=== PATIENT | male | born 1935 | race Caucasian/White ===

== ENCOUNTER 2016-09-18 18:01 | Emergency (ER) | payer MEDICARE ==
--- OUTSIDE RECORDS SUMMARY | 2016-09-18 18:36 | XMS REPORT | Continuity of Care Document ---
:1935 Author Organization [facility] ([facility]) Address [place] [address] Phone [phone] Care Team Providers Name Role Phone Bri Anderson Primary Care Provider [phone] Source Comments This disclosure is being made pursuant to the Care Everywhere program, applicable federal and state laws, and may not contain all informaitonavailable regarding this patient.[facility] ([facility]) Active Allergies and Adverse Reactions Allergen Noted Date Severity Reactions Comments Atorvastatin 08/21/2016 Fatigue Sulfa (Sulfonamide Antibiotics) 03/26/2016 Unknown Possible allergy Current Medications Prescription Sig. Disp. Refills Start Date End Date Status NITROSTAT 0.4 mg SL 10/30/2014 Active tablet multivitamin tablet Take 1 tablet by Active mouth daily. PROAIR HFA 90 03/06/2016 Active mcg/Actuation inhaler aspirin 325 mg tablet Take 325 mg by Active mouth daily. clopidogrel (PLAVIX) Take 1 tablet (75 90 tablet 3 05/07/2016 Active 75 mg tablet mg total) by mouth daily. losartan-hydrochlorot Take 1 tablet by 90 tablet 3 05/07/2016 Active hiazide 100-12.5 mg mouth daily. per tablet amLODIPine 5 mg Take 1 tablet (5 mg 90 tablet 2 06/18/2016 Active tablet total) by mouth daily. FOLIC Active ACID/MULTIVIT-MIN/LUT EIN (CENTRUM SILVER PO) acetaminophen 500 mg take 2 tablets Active tablet (1,000 mg) by oral route every 4 hours as needed not to exceed 8 tablets per 24hrs albuterol-ipratropium inhale 3 07/04/2015 Active 2.5-0.5 mg/3 mL milliliters by inhalation solution nebulization route 2 times per day as needed albuterol-ipratropium use bid prn per 09/16/2015 Active 2.5-0.5 mg/3 mL nebulizer inhalation solution LORazepam 1 mg tablet Take 1 tablet (1 mg 1 tablet 0 08/21/2016 Active total) by mouth once. 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 VASCULAR: Carotid Duplex (Vertebral: Bilateral Antegrade Flow, Right ICA/CCA ratio 1.9 Left ICA/CCA ratio 1.0) - 07/04/2013 Fatigue 12/15/2014 Overview: Essential (primary) hypertension 02/14/2014 Coronary artery disease Overview: Formatting of this note may be different from the original. CARDIOVASCULAR PROCEDURES 1. History of multiple stent deployment to the left anterior descending artery performed in 2003, utilizing a 3.5 x 15 mm Multi-Link stent as well as 3.0 x 16 mm Express stent, and 2.25 x 8 mm stent to the diagonal branch performed in [place]. 2. Repeat stent in 2003 in [place] with deployment of a 3.0 x 8 mm Express stent to the proximal circumflex. 3. Repeat cardiac catheterization in [place] in 01/28 with stent deployment x3 to the right coronary artery utilizing 3.5 x 28 mm Liberte stent, 3.0 x 12 mm Taxus stent, 2.5 x 16 mm Taxus stent to th e mid and distal right coronary arteries respectively. 4. Repeat cardiac catheterization in [place] in 11/01 with stent deployment x2 to the circumflex artery, utilizing a 3.0 x 16 mm and 3.5 x 32 mm ION stent. 5. Repeat cardiac catheterization in [place] in 07/05 with placement of a 4.0 x 12 mm ION stent to the right coronary artery. ECHO/MUGA: Echo (There is moderate concentric left ventricular hypertrophy. Left ventricular systolic function is normal. There is trace mitral regurgitation. There is aortic valve sclerosis without stenosis. Mild aortic regurgitation. ) - 12/23/2012 Echo (There is moderate concentric left ventricular hypertrophy. Left ventricular systolic function is normal. There is mild mitral regurgitation. There is aortic valve sclerosis without stenosis. trace aortic regurgitation. ) - 07/25/2015 STRESS TESTS: MPI (Normal myocardial perfusion examination. No evidence of stress induced reversible photopenia suggestive of cardiac ischemia. No evidence of prior scar. 2 Normal post stress LVEF of 54%. 3 Normal LV size and wall motion 4. Post stress LVEDV of 122 mL ) - 12/23/2012 Silvestre MPI (Normal EF, Normal perfusion) - 02/01/2014 Cardiac PET: Normal myocardial perfusion scan; LVEF of 54%.01/02/2015 VASCULAR: Carotid Duplex (Vertebral: Bilateral Antegrade Flow, Right ICA/CCA ratio 1.9 Left ICA/CCA ratio 1.0) - 07/04/2013 Atrial fibrillation Overview: Poor documentation. Hyperlipidemia Overview: refuses statin Most Recent Encounters Date Type Specialty Providers Description 08/25/2016 Office Visit Heart and Vascular Taylor Crockett MD Dx: Chest pain on exertion (Primary Dx) 08/21/2016 Office Visit Srg Oncology Maikol Uribe, Dx: IPMN (intraductal papillary mucinous neoplasm) (Primary Dx) 08/21/2016 Hospital Radiology Akil Troncoso MD Dx: Pancreatic Encounter cyst 08/21/2016 [facility] Pancreatic MD cyst (Primary Dx) 08/13/2016 [facility]Notes [facility]x: Pancreatic cyst (Primary Dx) 08/10/2016 Telephone [facility] Maikol Uribe, Chief Comp: MD Appointment Request 07/17/2016 Telephone Cardiac Rehabilitation Taylor Crockett MD Chief Comp: Follow-up Social History Tobacco Use Types Packs/Day Years Used Date Never Smoker Smokeless Tobacco: Never Used Alcohol Use Drinks/Week oz/Week Comments No Last Filed Vital Signs Vital Sign Reading Time Taken Blood Pressure 124/70 08/25/2016 10:33 AM CDT Pulse 76 08/25/2016 10:33 AM CDT Temperature 36.1 C (97 F) 08/21/2016 10:31 AM CDT Respiratory Rate - - Height 1.905 m (6' 3") 08/25/2016 10:33 AM CDT Weight 112.674 kg (248 lb 6.4 oz) 08/25/2016 10:33 AM CDT Body Mass Index 31.05 08/25/2016 10:33 AM CDT Oxygen Saturation 91% 08/21/2016 10:31 AM CDT Plan of Care Date Type Specialty Providers Description 11/19/2016 Appointment Radiology Chief Comp: Patient Reported Reason For Visit 11/19/2016 Appointment Srg Oncology Maikol Uribe MD Chief Comp: Patient [address] [place] [address] Visit [phone] (Fax) 03/23/2017 Appointment Heart and Vascular BonTaylor MD Chief Comp: Patient [address] [place] [address] Visit [phone] (Fax) Health Maintenance Due Date Last Done Comments Hepatitis B Vaccine (1 of 3 - Primary Series) 1935 Tdap Vaccine 1946 Lipid Disorder Screening 12/05/1955 Td Vaccine 12/05/1955 Colonoscopy 1987 Zoster Vaccine 1997 Pneumococcal Vaccine (1 of 2 - PCV13) 2002 Influenza Vaccine: Seasonal (Season Ended) 2016 Results from Last 3 Months MRI ABDOMEN WO CONTRAST (18010) (08/21/2016 9:56 AM) Impressions Impression: 1. Limited study performed without intravenous contrast. Patient became claustrophobic and was unable to complete the MRI. 2. Dominant septated cystic lesion in pancreatic body, incompletely evaluated. Differential diagnosis includes mucinous cystic neoplasm and sidebranch IPMN. If clinically indicated, consider endoscopic ultrasound with FNA for further evaluation. 3. Several small cystic lesions scattered throughout the pancreas, too small to characterize, but could represent small side branch IPMNs. 4. Slight diffuse prominence of the main pancreatic duct. 5. Multiple hepatic lesions, incompletely evaluated, but may represent cysts or hemangiomas. Narrative Procedure: MRI ABDOMEN WO CONTRAST (51036) Clinical Indication: Pancreatic cyst, concerning for IPMN. evaluate Technique: MRI of the abdomen with attention to the pancreas and MRCP were performed on a 1.5 Lauren scanner using a surface multicoil. Imaging consisted of 3 plane TrueFISP localizer, coronal HASTE T2 localizer, axial T1 FLASH in- and [id number], axial T2 fat-sat GRACE, axial T2* GRE, axial and coronal fat-sat T2 HASTE 2D MRCP, and axial T2 HASTE. The patient became claustrophobic and was unable to complete the exam. No intravenous contrast was administered. Comparison:PET/CT myocardial perfusion study dated 01/01/2015 Findings: Limited evaluation of solid organs and blood vessels without IV contrast. Lower chest: Normal Liver: Size is top normal. Multiple high T2, well-circumscribed lesions in the liver, probably cysts or hemangiomas. A few of the lesions may have thin internal septations. Bile ducts: Not dilated. Gallbladder: Normal. Pancreas: Fatty infiltration of pancreas. There is a lobulated, septated cystic lesion in the pancreatic body measuring 2 x 5 x 3.2 cm. Unable to determine if this lesion communicates with the pancreatic duct. There are at least 6 additional small cystic lesions scattered throughout the pancreas, largest in the body measures 1.4 cm. Main pancreatic duct is slightly prominent at 4 mm in maximum diameter. Spleen: Normal Adrenal glands: Normal Kidneys: Mild left renal atrophy. Bilateral renal cysts. Ureters: Normal Aorta: Normal Retroperitoneum: No lymphadenopathy. Peritoneum: No ascites. Mesentery: Normal Stomach and bowel: Not distended. Abdominal wall: Normal. Bones: Normal. Procedure Note French, Incoming Imaging Results - WedAug 21, 2016 1:50 PM CDT Procedure: MRI ABDOMEN WO CONTRAST (85231) Clinical Indication: Pancreatic cyst, concerning for IPMN. evaluate Technique: MRI of the abdomen with attention to the pancreas and MRCP were performed on a 1.5 Lauren scanner using a surface multicoil. Imaging consisted of 3 plane TrueFISP localizer, coronal HASTE T2 localizer, axial T1 FLASH in- and [id number], axial T2 fat-sat GRACE, axial T2* GRE, axial and coronal fat-sat T2 HASTE 2D MRCP, and axial T2 HASTE. The patient became claustrophobic and was unable to complete the exam. No intravenous contrast was administered. Comparison: PET/CT myocardial perfusion study dated 01/01/2015 Findings: Limited evaluation of solid organs and blood vessels without IV contrast. Lower chest: Normal Liver: Size is top normal. Multiple high T2, well-circumscribed lesions in the liver, probably cysts or hemangiomas. A few of the lesions may have thin internal septations. Bile ducts: Not dilated. Gallbladder: Normal. Pancreas: Fatty infiltration of pancreas. There is a lobulated, septated cystic lesion in the pancreatic body measuring 2 x 5 x 3.2 cm. Unable to determine if this lesion communicates with the pancreatic duct. There are at least 6 additional small cystic lesions scattered throughout the pancreas, largest in the body measures 1.4 cm. Main pancreatic duct is slightly prominent at 4 mm in maximum diameter. Spleen: Normal Adrenal glands: Normal Kidneys: Mild left renal atrophy. Bilateral renal cysts. Ureters: Normal Aorta: Normal Retroperitoneum: No lymphadenopathy. Peritoneum: No ascites. Mesentery: Normal Stomach and bowel: Not distended. Abdominal wall: Normal. Bones: Normal. IMPRESSION Impression: 1. Limited study performed without intravenous contrast. Patient became claustrophobic and was unable to complete the MRI. 2. Dominant septated cystic lesion in pancreatic body, incompletely evaluated. Differential diagnosis includes mucinous cystic neoplasm and sidebranch IPMN. If clinically indicated, consider endoscopic ultrasound with FNA for further evaluation. 3. Several small cystic lesions scattered throughout the pancreas, too small to characterize, but could represent small side branch IPMNs. 4. Slight diffuse prominence of the main pancreatic duct. 5. Multiple hepatic lesions, incompletely evaluated, but may represent cysts or hemangiomas. CREATININE, POINT OF CARE (08/21/2016) Component Value Range POC CREATININE 1.7(A) 0.6-1.2 mg/dL POC CALCULATED GFR 39(A) 60 mL/min/1.73 m2
--- OUTSIDE RECORDS SUMMARY | 2016-09-18 18:36 | XMS REPORT | Continuity of Care Document ---
:1935 Author Organization [facility] [place] [address] Care Team Providers Name Role Phone Unavailable Primary Care Provider Unavailable Source Comments This disclosure is being made pursuant to the [email or web address] program and maynot contain all information available regarding this patient.[facility] Active Allergies and Adverse Reactions Not on File Current Medications Be aware that medications may not be up to date as of this document. Alwaysverify current medications with the patient. Not on file Active Problems Not on file Social History Tobacco Use Types Packs/Day Years Used Date Never Assessed Plan of Care Health Maintenance Due Date Last Done Comments Retired-Pertussis Vaccine Adult 1954 Retired-Tetanus Vaccine Adult 1954 Well Adult Visit 12/05/1987 Zoster Vaccine 60+ 1997 Retired-Pneumococcal 23 Vaccine-65+ yo 2002 Retired-INFLUENZA VACCINE 01/22/2015 Results from Last 3 Months Not on file
[2016-09-18 18:37] LABS: Hematocrit 34.9 % (42.0-52.0); Hemoglobin 11.4 gm/dL (13.5-18.0); Mean Cell Volume 86.6 fl (78-100); Mean Corpuscular Hemoglobin 28.3 pg (27-31); Mean Corpuscular Hgb Conc 32.7 g/dl (32-36); Mean Platelet Volume 10.2 fl (6.0-9.5); Neutrophil # 2.8 K/mm3 (1.3-6.0); Neutrophil % 59.6 % (42-75.0); Platelet Count 174 K/mm3 (150-450); Red Blood Count 4.03 M/mm3 (4.7-6.0); Red Cell Distribution Width 14.5 % (11.5-14.0); White Blood Count 4.7 K/mm3 (4.0-10.5)
[2016-09-18 18:45] LABS: Prothrombin Time (Patient) 10.9 Seconds (9.4-11.4)
[2016-09-18 18:46] LABS: INR 1.05 INR (0.90-1.10)
[2016-09-18] MEDS: NITROGLYCERIN 0.4 MG/TAB BTL SL ONE (18:54)
--- NOTE | 2016-09-18 18:56 | ERNOTE ---
Chest Pain/Cardiac HPI Date of Service: 09/18/16 Chief Complaint: Chest Pain Time Seen by Provider: 09/18/16 18:06 Source: patient Exam Limitations: no limitations Immunizations: IMMUNIZATION HX Immunizations Up to Date No History of Influenza Vaccine No Hx Pneumococcal Vaccination No Allergies/Adverse Reactions: Allergies Sulfa (Sulfonamide Antibiotics) Allergy (Intermediate, Verified 09/18/16 18:17) Hives atorvastatin calcium [From Lipitor] Allergy (Verified 09/18/16 18:17) Home Medications: HOME MEDICATIONS Aspirin [Aspirin EC] 325 mg PO DAILY 04/03/13 [Last Taken 04/13/14] Clopidogrel Bisulfate [Plavix] 75 mg PO DAILY 04/03/13 [Last Taken 04/13/14] Albuterol Sulfate [Proair Hfa] 2 puff IH Q4H PRN 07/22/15 [Last Taken Unknown] Multivit-Min/FA/Lycopen/Lutein [Centrum Silver Tablet] 1 each PO DAILY 07/22/15 [Last Taken Unknown] Nitroglycerin 0.4 mg SL PRN 07/22/15 [Last Taken Unknown] Acetaminophen [Tylenol] 500 mg PO QID PRN #30 tablet 10/24/15 [Last Taken Unknown] Losartan/Hydrochlorothiazide [Losartan-Hctz 100-12.5 mg Tab] 1 each PO DAILY [Last Taken Unknown] amLODIPine BESYLATE [Norvasc] 5 mg PO DAILY 09/18/16 [Last Taken Unknown] Narrative: Patient presents to the ED for chest pain via EMS. He relates she has been having exertional CP that goes away with rest. He had a stress test yesterday to evaluate these Sx. He states today he developed chest heaviness with diaphoresis and SOB. Heaviness across his chest is like his prior cardiac pains. This did not go away and EMS called. EMS gave full ASA and NTG and pain now resolved. pain duration 20-30 minutes. This lasted longer that his prior pains. No new calf pain or leg swelling. No pleuritic pain. Pain now resolved. Timing: gone now Severity/Quality: tightness Location: central Modifying Factors - Improves: Present: nitroglycerin Modifying Factors - Worsens: Present: exercise Nitro Today/Relief: 0.4 mg x 1 Aspirin Treatment Today: 325 mg x 1 Associated Symptoms: Present: shortness of breath. Absent: syncope, fever/ chills, vomiting, abdominal pain, weakness Prior Chest Pain/Cardiac Workup: Reports: prior chest pain Prior Treatment: Reports: recently seen Review of Systems - Review of Systems Constitutional: Absent: fever Respiratory: Present: See HPI Cardiology: Present: See HPI Gastrointestinal/Abdominal: Absent: abdominal pain Genitourinary: Absent: dysuria Neurological: Absent: weakness All Other Systems: All systems neg except as marked - Patient's Past Medical History Patient History - Medical: Arthritis, GERD, Osteoarthritis Patient History - Cardiac/Respiratory: Hypertension, Myocardial Infarction Patient History - Cancer: Skin Patient History - Surgical Procedures: Cancer Surgery, Colonoscopy, Cardiac stent, EGD, T & A, Other Patient History - Other: None - Family History Mother Family History - Medical: Family History - Cardiac/Respiratory: Coronary Heart Disease Father Family History - Medical: Family History - Cardiac/Respiratory: Cardiomyopathy, Coronary Heart Disease Sister Family History - Medical: Family History - Cardiac/Respiratory: COPD - Social History Living Situations: home Abuse History: No History of abuse Psych History: No pertinent hx Smoking Status: Former smoker Have you smoked in the past 12 months: No Do you dip or chew tobacco: No Alcohol Use: rarely Drug Use: none - Immunizations Immunizations Up to Date: No Hx Pneumococcal Vaccination: No History of Influenza Vaccine: No Physical Exam - Physical Exam General Appearance: Present: alert, no apparent distress Eye Exam: Normal inspection: bilateral, PERRL: bilateral Ears, Nose, Throat: Present: normal ENT inspection Neck: Present: normal inspection Respiratory: Present: no respiratory distress, normal breath sounds, no accessory muscle use, lungs clear Cardiovascular/Chest: Present: regular rate, rhythm Gastrointestinal/Abdominal: Present: normal bowel sounds, nondistended, soft. Absent: tenderness Back Exam: Present: normal range of motion Extremity Exam: Present: other - some edema which is unchanged per patient. No DVT findings. Neurological Exam: Present: oriented, normal mood/affect, no motor/sensory deficits Skin Exam: Present: normal color, warm/dry. Absent: skin rash ED Progress - Results and Orders Patient's Lab Results:: I have reviewed the patient's lab results. - Vital Signs Patient's Vital Signs:: I have reviewed the patient's vital signs. Vital Signs: Vital Signs 09/18/16 18:05 Temperature 36.6 C Pulse Rate 60 Respiratory 18 Rate Blood Pressure 135/77 O2 Sat by Pulse 96 Oximetry - EKG EKG: NSR - NS EKG Comments: NSR rate 64. Non-specific changes, no STEMI - X-Ray X-Ray #1 X-Ray: chest Interpretation: Interp. by me X-ray Comments: I reviewed images. Formal report pending. No pneumonia. no PTX. atelectasis - Progress/Reassessment Chief Complaint: Chest Pain Progress Note-Subjective: 09/18/16 19:16 Patient re-developed pain and this was relieved with a single NTG. NTG paste placed. Given abnormal stress he needs cardiology. D/E [facility] for Dr Crockett, ptatient accepted in transfer to [facility]. Dr Crockett accepting. Pain free. Pt agreeable. Departure - Departure Clinical Impression: Chest pain Disposition: [facility] Condition: Stable Referrals: Bri Anderson MD [Primary Care Provider] -
[2016-09-18] MEDS ORDERED: NITROGLYCERIN 1 INCH PACKET TD ONE (18:57)
[2016-09-18 18:59] LABS: ALT 21 U/L (19-67); AST 16 U/L (0-48); Albumin * 3.2 gm/dl (3.4-5.0); Alkaline Phosphatase * 92 U/L (50-170); Anion Gap 9.3 mmol/L (6.8-13.8); BUN/Creatinine Ratio 21.2 (9.0-21.6); Bilirubin, Total 0.2 mg/dL (0.0-1.1); Blood Urea Nitrogen 41 mg/dL (6-23); Calcium * 8.7 mg/dL (7.9-10.9); Carbon Dioxide 27.3 mmol/L (24-32.6); Chloride 108 mmol/L (97-106); Glucose * 99 mg/dL (70-110); Potassium 3.6 mmol/L (3.4-4.6); Sodium 141 mmol/L (132-142)
[2016-09-18 19:00] LABS: Troponin I Less than 0.017 ng/ml (0.00-0.10)
[2016-09-18] MEDS: NITROGLYCERIN 1 INCH PACKET TD ONE (19:00)
[2016-09-18 20:47] VITALS: BP 169/79
== END 2016-09-18 20:45 | disposition short-term general hospital (02) ==
LOC: ER 18:01
DX: R07.89 Other chest pain (principal); Z87.891 Personal history of nicotine dependence; Z79.02 Long term (current) use of antithrombotics/antiplatelets; Z79.899 Other long term (current) drug therapy; Z79.82 Long term (current) use of aspirin; I25.2 Old myocardial infarction

== ENCOUNTER 2016-10-17 08:04 | Emergency (ER) | payer MEDICARE ==
[2016-10-17 08:40] LABS: Hematocrit 28.6 % (42.0-52.0); Hemoglobin 9.1 gm/dL (13.5-18.0); Mean Corpuscular Hemoglobin 29.3 pg (27-31); Mean Corpuscular Hgb Conc 31.8 g/dl (32-36); Mean Platelet Volume 9.5 fl (6.0-9.5); Neutrophil # 5.4 K/mm3 (1.3-6.0); Neutrophil % 79.2 % (42-75.0); Platelet Count 252 K/mm3 (150-450); Red Blood Count 3.11 M/mm3 (4.7-6.0); White Blood Count 6.8 K/mm3 (4.0-10.5)
[2016-10-17 08:49] LABS: Prothrombin Time (Patient) 11.6 Seconds (9.4-11.4)
[2016-10-17 08:50] LABS: INR 1.12 INR (0.90-1.10); Partial Thrombolplastin Time 31.8 Seconds (24-32)
--- NOTE | 2016-10-17 08:51 | ERNOTE ---
Dizziness ER Record Date of Service: 10/17/16 Presenting Symptoms: dizziness, weakness Time Seen by Provider: 10/17/16 08:10 Source: patient, family Exam Limitations: no limitations Immunizations: IMMUNIZATION HX Immunizations Up to Date Yes History of Influenza Vaccine No Hx Pneumococcal Vaccination No Allergies/Adverse Reactions: Allergies Allergy/AdvReac Type Severity Reaction Status Date / Time Sulfa (Sulfonamide Allergy Intermediate Hives Verified 09/18/16 18:17 Antibiotics) atorvastatin calcium Allergy Verified 09/18/16 18:17 [From Lipitor] Home Medications: HOME MEDICATIONS Aspirin [Aspirin EC] 325 mg PO DAILY 04/03/13 [Last Taken 04/13/14] Clopidogrel Bisulfate [Plavix] 75 mg PO DAILY 04/03/13 [Last Taken 04/13/14] Multivit-Min/FA/Lycopen/Lutein [Centrum Silver Tablet] 1 each PO DAILY 07/22/15 [Last Taken Unknown] Nitroglycerin 0.4 mg SL PRN 07/22/15 [Last Taken Unknown] Acetaminophen [Tylenol] 500 mg PO QID PRN #30 tablet 10/24/15 [Last Taken Unknown] Docusate Sodium [Doc-Q-Lace] 100 mg PO DAILY 10/17/16 [Last Taken Unknown] Furosemide 20 mg PO DAILY 10/17/16 [Last Taken Unknown] Metoprolol Tartrate 50 mg PO BID 10/17/16 [Last Taken Unknown] Pravastatin Sodium [Pravachol] 20 mg PO DAILY 10/17/16 [Last Taken Unknown] Sennosides [Senna Lax] 8.6 mg PO DAILY 10/17/16 [Last Taken Unknown] amLODIPine BESYLATE [Norvasc] 5 mg PO DAILY 10/17/16 [Last Taken Unknown] - History of Present Illness Narrative: patient was restless all night , got up this am felt week/ denies chestpain Date (Duration): 10/17/16 Timing and Duration: gradual onset, better Noted on awakening:: Yes Severity: max: moderate Severity: currently: moderate Associated Symptoms: Present: weakness, light headedness Sense of movement: Present: vague Decreased ability to stand/walk:: Present: weak Usually:: Present: walks w/o assistance Modifying Factors - (Improves): Reports: nothing Modifying Factors - (Worsens): Reports: standing position Prior Treament: Reports: recently seen, treated by physician, recently hospitalized, other - patient recently had triple bypass Review of Systems - Review of Systems Constitutional: Present: weakness, fatigue, malaise EYE: Present: no symptoms reported ENT: Present: no symptoms reported Respiratory: Present: no symptoms reported Cardiology: Present: no symptoms reported Gastrointestinal/Abdominal: Present: no symptoms reported Genitourinary: Present: no symptoms reported Musculoskeletal: Present: no symptoms reported Skin: Present: no symptoms reported Neurological: Present: no symptoms reported Endocrine: Present: no symptoms reported Hematologic/Lymphatic: Present: no symptoms reported Psych: Present: no symptoms reported All Other Systems: All systems neg except as marked - Patient's Past Medical History Patient History - Medical: Arthritis, GERD, Osteoarthritis, Other - recent triple bypass Patient History - Cardiac/Respiratory: Hypertension, Myocardial Infarction Patient History - Cancer: Skin Patient History - Surgical Procedures: Cancer Surgery, Colonoscopy, Coronary Bypass Surgery, Cardiac stent, EGD, T & A, Other Patient History - Other: None - Family History Mother Family History - Medical: Family History - Cardiac/Respiratory: Coronary Heart Disease Father Family History - Medical: Family History - Cardiac/Respiratory: Cardiomyopathy, Coronary Heart Disease Sister Family History - Medical: Family History - Cardiac/Respiratory: COPD - Social History Living Situations: home Abuse History: No History of abuse Psych History: No pertinent hx Smoking Status: Former smoker Alcohol Use: rarely Drug Use: none - Immunizations Immunizations Up to Date: Yes Hx Pneumococcal Vaccination: No History of Influenza Vaccine: No Physical Exam - Physical Exam General Appearance: Present: alert, mild distress, anxious Eye Exam: Normal inspection: bilateral, PERRL: bilateral, EOMI: bilateral Ears, Nose, Throat: Present: normal ENT inspection Neck: Present: normal inspection, nontender Respiratory: Present: no respiratory distress, normal breath sounds, no accessory muscle use, chest nontender, lungs clear Cardiovascular/Chest: Present: regular rate, rhythm, no murmur, normal peripheral pulses Peripheral Pulses: N=norm/S=strong/W=weak/B=bound/A=absent: Carotid (R): Normal , Carotid (L): Normal, Radial (R): Normal, Radial (L): Normal, Femoral (R): Normal, Femoral (L): Normal, Dorsalis-pedis (R): Normal, Dorsalis-pedis (L): Normal Gastrointestinal/Abdominal: Present: normal bowel sounds, nontender, nondistended, soft, no organomegaly Back Exam: Present: normal inspection, normal range of motion, no CVA tenderness , no vertebral tenderness Extremity Exam: Present: normal inspection, non-tender, normal range of motion, no edema Neurological Exam: Present: alert, oriented, normal mood/affect, no motor/ sensory deficits DTR: N=norm/NB=norm/brisk/A=abs/DD=dull/dimin/HC=hyperactive: Bicep (R): Normal , Bicep (L): Normal, Tricep (R): Normal, Tricep (L): Normal, Knee (R): Normal, Knee (L): Normal, Ankle (R): Normal, Ankle (L): Normal Skin Exam: Present: normal color, warm/dry Lymphatic Exam: Present: no adenopathy ED Progress - Results and Orders Patient's Lab Results:: I have reviewed the patient's lab results. - Vital Signs Patient's Vital Signs:: I have reviewed the patient's vital signs. Vital Signs: Vital Signs 10/17/16 08:06 Temperature 37.4 C Pulse Rate 98 Respiratory 19 Rate Blood Pressure 136/71 O2 Sat by Pulse 96 Oximetry - EKG EKG: NSR - Progress/Reassessment Chief Complaint: Dizziness Progress:: Improved Progress Note-Subjective: 10/17/16 09:59 patient improved discussed labs and x-rays with patient, to continue present meds and encouraged to drink fluuids, f/u withcardiology per appointment - Transfer of Care Expected Disposition: Discharge Departure Clinical Impression: Dehydration - Departure Disposition: Home self-care Condition: Fair Instructions: Dehydration, Adult, [id number]
[2016-10-17] MEDS ORDERED: NORMAL SALINE 500 ML IV ONE (08:52)
[2016-10-17 08:59] LABS: Albumin * 2.5 gm/dl (3.4-5.0); Anion Gap 13.4 mmol/L (6.8-13.8); BUN/Creatinine Ratio 13.7 (9.0-21.6); Bilirubin, Total 0.6 mg/dL (0.0-1.1); Ca. Corrected For Albumin 9.1 mg/dL (8.4-10.2); Calcium * 8.2 mg/dL (7.9-10.9); Carbon Dioxide 23.8 mmol/L (24-32.6); Potassium 4.2 mmol/L (3.4-4.6); Total Protein 7.5 gm/dL (6.2-8.2)
[2016-10-17 09:00] LABS: Troponin I 0.022 ng/ml (0.00-0.10)
--- OUTSIDE RECORDS SUMMARY | 2016-10-17 09:02 | XMS REPORT | Continuity of Care Document ---
:1935 Author Organization [place] [address] Care Team Providers Name Role Phone Unavailable Primary Care Provider Unavailable Source Comments This disclosure is being made pursuant to the [employer] program and maynot contain all information available regarding this patient.[facility] Active Allergies and Adverse Reactions Not on [...]
--- OUTSIDE RECORDS SUMMARY | 2016-10-17 09:03 | XMS REPORT | Continuity of Care Document ---
:1935 Author Organization [facility] ([facility]) Address [place] [address] Phone [phone] Care Team Providers Name Role Phone Bri Anderson Primary Care Provider [phone] Source Comments This disclosure is being made pursuant to the Care Everywhere program, applicable federal and state laws, and may not contain all informaitonavailable regarding this patient.[facility] ([facility]) Active Allergies and Adverse Reactions Allergen Noted Date Severity Reactions Comments Atorvastatin 08/21/2016 Fatigue Sulfa (Sulfonamide Antibiotics) 03/26/2016 Unknown Possible allergy Current Medications Prescription Sig. Disp. Refills Start End Date Status Date NITROSTAT 0.[address] 0.4 mg under Active SL tablet the tongue every 5 5 minutes as needed. multivitamin Take 1 tablet by Active tablet mouth daily. PROAIR HFA 90 1-2 Puffs every 4 Active mcg/Actuation hours as needed. 6 inhaler clopidogrel Take 1 tablet (75 90 tablet 3 Active (PLAVIX) 75 mg mg total) by mouth 6 tablet daily. amLODIPine 5 mg Take 1 tablet (5 90 tablet 2 Active tablet mg total) by mouth 7 daily. acetaminophen 500 take 2 tablets Active mg tablet (1,000 mg) by oral route every 4 hours as needed not to exceed 8 tablets per 24hrs albuterol-ipratrop inhale 3 Active ium 2.5-0.5 mg/3 milliliters by 6 mL inhalation nebulization route solution 2 times per day as needed aspirin 81 mg Take 1 tablet (81 30 tablet 3 Active chewable tablet mg total) by mouth 7 daily. docusate 100 mg Take 1 capsule 60 capsule 3 Active capsule (100 mg total) by 7 mouth 2 times daily. furosemide 20 mg Take 1 tablet (20 30 tablet 0 Active tablet mg total) by mouth 7 daily. HYDROmorphone 2 mg Take 1-2 tablets 60 tablet 0 Active tablet (2-4 mg total) by 7 mouth every 4 hours as needed. metoPROLol Take 1 tablet (50 60 tablet 3 Active tartrate 50 mg mg total) by mouth 7 tablet every 12 hours. polyethylene Take 17 g by mouth 30 Each 3 Active glycol 3350 17 daily as needed. 7 gram packet pravastatin 20 mg Take 1 tablet (20 30 tablet 3 Active tablet mg total) by mouth 7 daily. sennosides 8.6 mg Take 1 tablet (8.6 60 tablet 3 Active tablet mg total) by mouth 7 2 times daily. LORazepam (ATIVAN) Take 1 tablet (1 1 tablet 0 Active 1 mg tablet mg total) by mouth 7 premedication as needed (prior to MRI). aspirin 325 mg Take 325 mg by 10/06/19 Discontinued tablet mouth daily. 17 losartan-hydrochlo Take 1 tablet by 90 tablet 3 10/06/19 Discontinued rothiazide mouth daily. 6 17 100-12.5 mg per tablet FOLIC 09/20/19 Discontinued ACID/MULTIVIT-MIN/ 17 LUTEIN (CENTRUM SILVER PO) albuterol-ipratrop use bid prn per 09/20/19 Discontinued ium 2.5-0.5 mg/3 nebulizer 6 17 mL inhalation solution LORazepam 1 mg Take 1 tablet (1 1 tablet 0 09/20/19 Discontinued tablet mg total) by mouth 7 17 once. Active Problems Problem Noted Date Multiple myeloma, rib lesion + plasma cells. being worked up by 10/05/2016 Hematology, not officially diagnosed Overview: Plasma cells from right rib lytic lesion- hematology oncology consult. Will have return in 1 week with likely bone biopsy. Staff Jagdeep Santa. Follow up order in. Tracheal mass 10/05/2016 Overview: Retrotracheal mass on CT scan 09/21/16. Pulmonary consult. Recommend looking at prior imaging, none available. Hematology does not feel this is related to multiple myeloma diagnosis. Discussed with pulmnary inpt consult service-Recommend eval by Pulmonary in 4 weeks. Appointment requested. Mass may need biopsied. On ASA And Plavix. S/P CABG x 3 09/30/2016 Overview: 09/28/16: Coronary artery bypass grafting x3 with KRAMER to LAD, SVG to OM2 and SVG to PDA ; PFO primary closure. Ct out. On room air, Has significant edema. Postoperative pain 09/30/2016 Overview: Dilaudid prn Postoperative anemia due to acute blood loss 09/30/2016 Overview: Admitted 09/18 with H/H of 11.9 and 35% 09/24: rib lesion biopsied;heparin restarted due to unstable angina. S/p CABG on 09/28 with incidental finding of right hemothorax with creatinine decreased to 8 range; the patient required blood products intraoperative (RBC, Plasma and Platelets) intraoperatively. Hemothorax evacuated during surgery. Monitor serial hemoglobin. Has been stable to up trending at discharge. Sciatic nerve pain 09/30/2016 Overview: Sciatic nerve pain, chronic: - Continue tylenol as needed - PT consult to assist in non-pharm management. Activity level bedrest with bathroom privileges. 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 Preop workup including chest CT showing Lesion noted on CT: - Soft tissue lesion in the right fourth rib with associated fracture, suspicious for metastatic lesion (biopsy completed 09/25 by IR) - Consult IR for CT-guided biopsy - Nonspecific retrotracheal mass, consistent with enlarged lymph node. Would possibly be amenable to bronchoscopic biopsy. - Consult pulmonary, would recommend PET if lesion to right fourth rib is not amenable to biopsy Coronary artery disease involving [place] coronary artery of [place] heart 09/28 without angina pectoris Overview: 09/28/16: Coronary artery bypass grafting x3 with KRAMER to LAD, SVG to OM2 and SVG to PDA ; PFO primary closure. Hemothorax, right 09/28/2016 Overview: Hb drop from 11 to 8 But trended up. S/p rib lesion biopsy and Heparin restarted due to unstable angina. Intraoperative finding of hemothorax. Cleaned out. NSTEMI (non-ST elevated myocardial infarction) 09/21/2016 Overview: Admitted on 09/18/16 with chest pain; Workup showed NSTEMI Non-ST elevated PR: - Monitor telemetry - History of CAD s/p multiple stents - EKG showed sinus rhythm - Troponin levels 0.05, 0.15, 0.86 - Underwent MPI which showed a mild reversible defect at the mid anterior septal wall - Continue ASA, Imdur 30 mg daily, Hydralazine 25 mg Q 8 hours. Plavix on hold due to plan for revascularization surgery. - Resume heparin gtt due to episode of chest pain overnight - Continue nitro patch. Continues to be chest pain free. - Transthoracic echocardiogram showed LVEF of 63%, apex and apical anterior wall is hypokinetic, LVH - Cardiology consult, appreciate recommendations. Coronary angiogram showed a mid LAD and proximal RCA lesions of 95%. TCV consulted, tentative surgical date 09/28. 09/28/16: Coronary artery bypass grafting x3 with KRAMER to LAD, SVG to OM2 and SVG to PDA ; PFO primary closure. On ASA, statin and beta wm as well as Plavix. Chronic kidney disease (stage 3); PAXTON with ATN 09/21/2016 Overview: Baseline creatinine on admit was 1.4 to 1.6 Admitted 09/18 with INSTRUMENT CALIBRATOR 1.6 Preop: 09/24 INSTRUMENT CALIBRATOR bumped to 2.2 with acute kidney injury with ATN related to cardiac cath contrast dye given on 09/21). This was treated with IV fluids, daily electrolyte monitoring, strict I/Os and some adjustments to medication doses. Acute kidney injury, likely contrast or medication induced: - Creatinine again peaked at 2.2 on 09/30/16. - Hold HCTZ and losartan Creatinine decrease 1.7 at discharge- Lasix 20 mg po daily at discharge. Repeat BMP 10/08/16. Surgery day: 09/28 INSTRUMENT CALIBRATOR improved to 1.5 Postoperative: 09/30: INSTRUMENT CALIBRATOR today 2.1; recurrent acute kidney injury with ATN this related to hypovolemia intraoperative. The patient required multiple blood products (RBCs, Platelets and Plasma) during surgery Treatment: Holding Lasix, gentle IV fluids. Adjusting med doses to support adequate SBP for renal perfusion. Will avoid nephrotoxic medications IPMN (intraductal papillary mucinous neoplasm) 08/21/2016 Chronic chest pain 12/15/2014 Carotid artery disease 12/15/2014 Overview: Formatting of this note may be different from the original. VASCULAR: Carotid Duplex (Vertebral: Bilateral Antegrade Flow, Right ICA/CCA ratio 1.9 Left ICA/CCA ratio 1.0) - 07/04/2013 Fatigue 12/15/2014 Overview: Essential (primary) hypertension 02/14/2014 Overview: Postop HTN initially requiring Nicardipine drip postop. Now controlled with Metoprolol with SBP in 130's. Coronary artery disease Overview: Formatting of this note may be different from the original. CARDIOVASCULAR PROCEDURES 1. History of multiple stent deployment to the left anterior descending artery performed in 2003, utilizing a 3.5 x 15 mm Multi-Link stent as well as 3.0 x 16 mm Express stent, and 2.25 x 8 mm stent to the diagonal branch performed in [place]. 2. Repeat stent in 2003 in [place] with deployment of a 3.0 x 8 mm Express stent to the proximal circumflex. 3. Repeat cardiac catheterization in [place] in 01/28 with stent deployment x3 to the right coronary artery utilizing 3.5 x 28 mm Liberte stent, 3.0 x 12 mm Taxus stent, 2.5 x 16 mm Taxus stent to th e mid and distal right coronary arteries respectively. 4. Repeat cardiac catheterization in [place] in 11/01 with stent deployment x2 to the circumflex artery, utilizing a 3.0 x 16 mm and 3.5 x 32 mm ION stent. 5. Repeat cardiac catheterization in [place] in 07/05 with placement of a 4.0 [...] - 07/04/2013 Atrial fibrillation Overview: Poor documentation. AF in 2003 s/p cardioversion (not on anticoagulation). Has been in SR postop CABG 09/28/16. Hyperlipidemia Overview: refuses statin; allergy to Lipitor. Pravachol started postop Tolerating at this time. Resolved Problems Problem Noted Date Resolved Date Chest pain 09/18/2016 10/01/2016 Overview: Admitted on 09/18/16 with chest pain; Workup showed NSTEMI 09/28/16: Coronary artery bypass grafting x3 with KRAMER to LAD, SVG to OM2 and SVG to PDA ; PFO primary closure. Most Recent Encounters Date Type Specialty Providers Description 10/17/2016 Nurse Triage Patient Services Angie Moreno Chief Comp: Heart Iliana RN Problem 10/16/2016 Telephone Heart and Vascular Megan Lucero RN 10/14/2016 Episode Changes Patient Services Martha Quesada 10/07/2016 Telephone Cancer Center Mirian Abreu I, Dx: Multiple RN myeloma (Primary Dx) 10/06/2016 Telephone Heart and Vascular Megan Lucero RN 10/05/2016 Telephone Hematology and Kaley Beltran Chief Comp: Oncology A ([facility]) Appointment Info 09/28/2016 Hospital Encounter Heart and Vascular Celeste Rodriguez, Chief Comp: Patient DO Reported Reason For Visit 09/28/2016 Surgery General Surgery Celeste Rodriguez, CORONARY ARTERY DO BYPASS GRAFT, ARTERY/VEIN and PFO Closure; right chest tube placement and evacuation of hemothorax from previous procedure 09/25/[address] Guided Needle MD Jolene Biopsy Lung/Mediastinum ([id number], [id number]) 09/24/2016 Anesthesia Event General Surgery Genesis Ingram MD 09/22/2016 Hospital Encounter Respiratory Therapy Carey Méndez, Chief Comp: Patient MD Reported Reason For Visit 09/22/2016 Hospital Encounter Heart and Vascular Moreau, Chief Comp: Patient MD Nishi Reported Reason For Visit 09/22/2016 Hospital Encounter Heart and Vascular Lizzeth Chief Comp: Patient MD Nishi Reported Reason For Visit 09/22/2016 Hospital Encounter Heart and Vascular Lizzeth Chief Comp: Patient MD Nishi Reported Reason For Visit 09/22/2016 Hospital Encounter Heart and Vascular Lizzeth Chief Comp: Patient MD Nishi Reported Reason For Visit 09/22/2016 Hospital Encounter Heart and Vascular Carson Peralta, Chief Comp: Patient Reported Reason For Visit 09/22/2016 Hospital Encounter Heart and Vascular Lizzeth Chief Comp: Patient MD Nishi Reported Reason For Visit 09/21/2016 Surgery Cardiology Herber Bethea, CORONARY MD ANGIOGRAPHY 09/18/2016 - Hospital Encounter General Care JadeOnesimo valdez Dx: Other chest 10/05/2016 Inpatient - Adult T, DO pain (Primary Dx) Brad Carvalho, MD Garcia, Bola Benson, Keyla Angel, MD Samaniego, Jeffrey Barrientos, William Cheng, Celeste Sanders, DO 08/25/2016 Office Visit Heart and Vascular Taylor Crockett MD Dx: Chest pain on exertion (Primary Dx) 08/21/2016 [facility] IPMN (intraductal papillary mucinous neoplasm) (Primary Dx) 08/21/2016 Hospital Encounter Radiology Akil Troncoso MD Dx: Pancreatic cyst 08/21/2016 [facility] Pancreatic [facility] (Primary Dx) 08/13/2016 [facility]x: Pancreatic cyst (Primary Dx) 08/10/2016 Telephone [facility] Maikol Uribe Chief Comp: MD Appointment Request Social History Tobacco Use Types Packs/Day Years Used Date Never Smoker Smokeless Tobacco: Never Used Alcohol Use Drinks/Week oz/Week Comments No Last Filed Vital Signs Vital Sign Reading Time Taken Blood Pressure 119/57 10/05/2016 12:42 PM CDT Pulse 77 10/05/2016 12:42 PM CDT Temperature 37.6 C (99.7 F) 10/05/2016 12:42 PM CDT Respiratory Rate 20 10/05/2016 12:42 PM CDT Height 1.905 m (6' 3") 10/02/2016 11:04 AM CDT Weight 111.8 kg (246 lb 7.6 oz) 10/05/2016 6:23 AM CDT Body Mass Index 30.81 10/05/2016 6:23 AM CDT Oxygen Saturation 94% 10/05/2016 12:42 PM CDT Plan of Care Date Type Specialty Providers Description 10/20/2016 Appointment Heart and Vascular Taylor Crockett MD Chief Comp: Patient [address] [place] [address] [phone] (Fax) 10/23/2016 Appointment Med 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 Flynn (Primary Dx) [address] [place] [address] [phone] (Fax) 10/23/2016 Appointment Radiology Chief Comp: Patient Reported Reason For Visit 10/23/2016 Hospital Encounter Radiology Dx: Tracheal mass (Primary Dx) 10/23/2016 Appointment Radiology Chief Comp: Patient Reported Reason For Visit 10/29/2016 Appointment Respiratory Therapy Default, Other Chief Comp: Patient Billg - Defo Reported Reason For [address] [place] [address] [phone] (Fax) 10/29/2016 Appointment Med Pulmonary Default, Other Billg - Defo [address] [place] [address] [phone] (Fax) Chief Comp: Patient Narciso Judge MD Reported Reason For Visit 10/29/2016 Appointment Heart and Vascular Celeste Rodriguez, Chief Comp: Patient DO Reported Reason For [address] [place] [address] [phone] (Fax) 10/29/2016 Appointment Med Hematology and Jagdeep Santa Chief Comp: Patient Oncology MD Flynn Reported Reason For [address] [place] [address] [phone] (Fax) 11/19/2016 Appointment Radiology Chief Comp: Patient Reported Reason For Visit 11/19/2016 Appointment Srg Oncology Maikol Uribe, Chief Comp: Patient Reported Reason For [address] [place] [address] [phone] (Fax) 03/23/2017 Appointment Heart and Vascular BonTaylor MD Chief Comp: Patient [address] Reported [place] Visit [address] [phone] (Fax) Health Maintenance Due Date Last Done Comments Hepatitis B Vaccine (1 of 3 - Primary Series) 1935 Tdap Vaccine 1948 Lipid Disorder Screening 12/05/1955 Td Vaccine 12/05/1955 Colonoscopy 1987 Zoster Vaccine 1997 Pneumococcal Vaccine (1 of 2 - PCV13) 2002 Influenza Vaccine: Seasonal (Season Ended) 2016 Procedures from Last 3 Months Procedure Name Priority Date/Time Associated Diagnosis Comments CORONARY ARTERY BYPASS 09/28/2016 8:16 AM Other chest pain GRAFT, ARTERY/VEIN and CDT PFO Closure; right chest tube placement and evacuation of hemothorax from previous procedure Results from Last 3 Months CHEST- PA& LATERAL (10/05/2016 12:10 PM)Only the most recent of2 resultswithin the time period is included. Impressions Findings/Impression: The cardiomediastinal silhouette and pulmonary vasculature are unremarkable other than the postoperative changes from the CABG that show no complications. Small bilateral pleural effusions and mild bibasilar atelectasis are stable. There are no pneumothoraces. The remainder of the study is unremarkable for the patient's age. Narrative Procedure: CHEST- PA & LATERAL Clinical Indication: Coronary artery disease, evaluate for infiltrate/effusion Technique: PA and lateral chest radiograph Comparison: Chest radiographs dated 09/25/2016 through 10/01/2016. Procedure Note French, Incoming Imaging Results - WedOctober 05, 2016 12:13 PM CDT Procedure: CHEST- PA & LATERAL Clinical Indication: Coronary artery disease, evaluate for infiltrate/effusion Technique: PA and lateral chest radiograph Comparison: Chest radiographs dated 09/25/2016 through 10/01/2016. IMPRESSION Findings/Impression: The cardiomediastinal silhouette and pulmonary vasculature are unremarkable other than the postoperative changes from the CABG that show no complications. Small bilateral pleural effusions and mild bibasilar atelectasis are stable. There are no pneumothoraces. The remainder of the study is unremarkable for the patient's age. ECG - EKG 12 LEAD (10/05/2016 11:15 AM)Only the most recent of8 resultswithin the time period is included. Component Value Range ECG SEVERITY - ABNORMAL ECG - VENT. RATE 72 bpm RR 833 ms P-R INTERVAL 140 ms QRSD INTERVAL 100 ms QT INTERVAL 432 ms QTC INTERVAL 473 ms P AXIS 43 degrees QRS AXIS -10 degrees REPORT SINUS RHYTHM [Remains] ABNORMAL T, PROBABLE ISCHEMIA, ANT-LAT LEADS [More Prom.] SIGNIFICANT ECG CONTOUR CHANGES [Now Absent] PROLONGED QT INTERVAL Interpreting Physician: Korey Reed MD EPIDEMIOLOGY CULTURE-VREF (10/05/2016 10:34 AM)Only the most recent of2 resultswithin the time period is included. Component Value Range VRE Culture Growth No Vancomycin Resistant Enterococcus isolated Specimen Culture - Rectal Swab MRSA/SA PCR (10/05/2016 10:34 AM)Only the most recent of3 resultswithin the time period is included. Component Value Range MRSA by PCR Negative Negative S. AUREUS by PCR NegativeComment:Negative for SA Negative Specimen Nasal Swab (MRSA) - Nasal Swab Narrative Test methodology:PCR amplification; Xpert SA Test ([employer]) BLOOD GLUCOSE, BEDSIDE (10/04/2016 1:55 PM)Only the most recent of3 resultswithin the time period is included. Component Value Range Glucose, Accu-Chek 122(H) 65-99 mg/dL Specimen Blood, capillary PROTEIN-URINE 24 HR (10/04/2016 7:45 AM) Component Value Range Total Volume, Urine 2593 mL Hours Collected 24.0 Hours Total Protein, Urine, Measured 37 mg/dL Total Protein, Urine, Total 0.96(H) 0.10-0.20 g/24Hr Specimen Urine URINE IMMUNOFIXATION ELECTROPHORESIS, 24HR URINE (10/04/2016 7:45 AM) Component Value Range UIFE Monoclonal [place](A) None UIFE Interpretation See TextComment: Urine immunotyping electrophoresis shows a kappa free light chain without corresponding heavy chain cross-reactivity. Consistent with Bence Peters proteinuria. Beverly Reyes.B.S., R3 Pathology Resident I have personally reviewed the patient studies and I agree with the above report. Jose Luis Watson M.D., Ph.D., Immunopathologist, [facility] Specimen Urine MAGNESIUM (10/04/2016 6:18 AM)Only the most recent of8 resultswithin the time period is included. Component Value Range Magnesium 2.2 1.5-2.9 mg/dL Specimen Blood GLUCOSE (10/04/2016 6:18 AM) Component Value Range Glucose 102(H)Comment: 65-99 mg/dL The Expert Committee on the Diagnosis and Classification of Diabetes has defined impaired fasting glucose as greater than or equal to 100 mg/dL but less than 126 mg/dL.(Diabetes Care 28 (Suppl 1)S41,2005) Specimen Blood CBC (COMPLETE BLOOD COUNT) (10/04/2016 6:18 AM)Only the most recent of9 resultswithin the time period is included. Component Value Range WBC Count 5.9 3.7-10.5 K/MM3 RBC Count 2.80(L) 4.50-6.20 M/MM3 Hemoglobin 8.2(L) 13.2-17.7 g/dL Hematocrit 25(L) 40-52 % MCV (Mean Corpuscular Volume) 89 82-99 FL MCH (Mean Corpuscular Hemoglobin) 29 25-35 PG MCHC (Mean Corpuscular Hemoglobin Concentration) 33 32-36 % Platelet Count 213 150-400 K/MM3 MPV (Mean Platelet Volume) 11.2 9.4-12.3 FL RBC Dist Width-STD 48.5(H) 35.1-43.9 FL RBC Distrib Width 14.7(H) 9.0-14.5 % Nucleated RBC 0 /100 WBC Specimen Whole Blood CREATININE (10/04/2016 6:18 AM)Only the most recent of2 resultswithin the time period is included. Component Value Range Creatinine 1.7(H)Comment: 0.6-1.2 mg/dL Creatinine switched to enzymatic method on 09/30/2010.GFR equation switched to IDMS-traceable MDRD equation on 09/30/2010. Calculated GFR values are not valid in clinical settings where serum creatinine is changing. Calculated GFR 39(L) >60 mL/min/1.73 m2 Specimen Blood BLOOD UREA NITROGEN (10/04/2016 6:18 AM) Component Value Range BUN 40(H) 10-20 mg/dL Specimen Blood CO2 (10/04/2016 6:18 AM) Component Value Range CO2 26 22-29 mEq/L Anion Gap 10 <17 mEq/L Specimen Blood CHLORIDE (10/04/2016 6:18 AM) Component Value Range Chloride 104 95-107 mEq/L Specimen Blood POTASSIUM (10/04/2016 6:18 AM) Component Value Range Potassium 4.3 3.5-5.0 mEq/L Specimen Blood SODIUM (10/04/2016 6:18 AM) Component Value Range Sodium 140 135-145 mEq/L Specimen Blood BLOOD CELL MORPHOLOGY (10/03/2016 3:38 AM) Component Value Range Polychromasia 1+ Specimen Whole Blood PHOSPHORUS (10/03/2016 3:38 AM)Only the most recent of6 resultswithin the time period is included. Component Value Range Phosphorus 3.3Comment:New reference range installed 03/05/15. 2.5-4.5 mg/dL Specimen Blood BASIC METABOLIC PANEL W/ CALCIUM (CHEM 8) (10/03/2016 3:38 AM)Only the most recent of16 resultswithin the time period is included. Component Value Range Sodium 139 135-145 mEq/L Potassium 4.3 3.5-5.0 mEq/L Chloride 105 95-107 mEq/L CO2 24 22-29 mEq/L BUN 43(H) 10-20 mg/dL Creatinine 1.8(H)Comment: 0.6-1.2 mg/dL Creatinine switched to enzymatic method on 09/30/2010.GFR equation switched to IDMS-traceable MDRD equation on 09/30/2010. Calculated GFR values are not valid in clinical settings where serum creatinine is changing. Glucose 109(H)Comment: 65-99 mg/dL The Expert Committee on the Diagnosis and Classification of Diabetes has defined impaired fasting glucose as greater than or equal to 100 mg/dL but less than 126 mg/dL.(Diabetes Care 28 (Suppl 1)S41,2005) Calcium 7.9(L) 8.5-10.5 mg/dL Anion Gap 10 <17 mEq/L Calculated GFR 37(L) >60 mL/min/1.73 m2 Specimen Blood HEMATOCRIT (10/02/2016 11:23 AM) Component Value Range Hematocrit 24(L) 40-52 % Specimen Whole Blood HEMOGLOBIN (10/02/2016 11:23 AM)Only the most recent of9 resultswithin the time period is included. Component Value Range Hemoglobin 7.6(L) 13.2-17.7 g/dL Specimen Whole Blood TOTAL PROTEIN (10/02/2016 4:12 AM) Component Value Range Total Protein 5.7(L) 6.0-8.0 g/dL Specimen Blood BETA 2 MICROGLOBULIN (10/02/2016 4:12 AM) Component Value Range Beta 2 Microglobulin 5.4(H) 1.1-2.4 mg/L Specimen Blood C-REACTIVE PROTEIN (10/02/2016 4:12 AM) Component Value Range CRP (C-Reactive Protein) 17.2(H) <=0.5 mg/dL Specimen Blood LACTATE DEHYDROGENASE (LDH) (10/02/2016 4:12 AM) Component Value Range LDH 229(H) 135-225 U/L Specimen Blood KAPPA-LAMBDA QUANT FREE LIGHT CHAIN RATIO, BLOOD (10/02/2016 4:12 AM) Component Value Range [place] Free Light Chain, Blood, Quant 735.80(H) 3.30-19.40 mg/L Lambda Free Light Chain, Blood, Quant 21.50 5.70-26.30 mg/L [place]/Lambda Ratio, Blood 34.22(H) 0.26-1.65 Specimen Blood SERUM IMMUNOFIXATION ELECTROPHORESIS (10/02/2016 4:12 AM) Component Value Range SIFE-Monoclonal 1 IgG [place](A) None SIFE-Path Interp See TextComment: Immunotyping electrophoresis shows a monoclonal IgG kappa immunoglobulin. Dipti ReyesS., R3 Pathology Resident I have personally reviewed the patient studies and I agree with the above report. Jose Luis Watson M.D., Ph.D., Immunopathologist, [facility] Specimen Blood SERUM PROTEIN ELECTROPHORESIS (10/02/2016 4:12 AM) Component Value Range SPEP-Total Protein 5.7(L) 6.0-8.0 g/dL SPEP-Albumin 2.6(L) 4.2-5.2 g/dL SPEP-Alpha1 Fraction 0.5 0.3-0.5 g/dL SPEP-Alpha2 Fraction 0.8(H) 0.3-0.6 g/dL SPEP-Beta1 Fraction 0.3 g/dL SPEP-Beta2 Fraction 0.3 g/dL SPEP-Beta Fraction Total 0.6 0.6-1.0 g/dL SPEP-Gamma Fraction 1.2 0.5-1.3 g/dL SPEP-Monoclonal Protein 0.8 g/dL SPEP-Path Interp See TextComment: A monoclonal protein is present in the gamma region comprising 0.8 g/dL of the total protein. Hypoalbuminemia is also present. Randell Reyes., R3 Pathology Resident I have personally reviewed the patient studies and I agree with the above report. Jose Luis Watson M.D., Ph.D., Immunopathologist, [facility] Questions can be directed to the Pathology Chemistry resident (pager #[phone]) Specimen Blood HEMOGLOBIN& CALCULATED HEMATOCRIT - ([facility]) (10/01/2016 2: 02 PM)Only the most recent of6 resultswithin the time period is included. Component Value Range Hemoglobin - CCL 8.6(L) 13.2-17.7 g/dL Hematocrit (Calc) - CCL 27(L) 40-52 % Specimen Whole Blood CHEST - AP/PA (10/01/2016 4:12 AM)Only the most recent of5 resultswithin the time period is included. Impressions Findings / Impression: Tubes and lines appropriately located. The right IJ sheath has been withdrawn. No pneumothorax. Persistent small left effusion along with left basilar consolidation/atelectasis. No pulmonary edema. Stable prominence of the cardiomediastinal silhouette. Trachea central. Otherwise grossly unchanged exam. Narrative Procedure: CHEST - AP/PA Technique: Portable AP chest radiograph Comparison: Chest radiograph(s) dated: September 30, 2016. Clinical Indication: Status post CABG Procedure Note French, Incoming Imaging Results - Tory October 01, 2016 9:16 AM CDT Procedure: CHEST - AP/PA Technique: Portable AP chest radiograph Comparison: Chest radiograph(s) dated: September 30, 2016. Clinical Indication: Status post CABG IMPRESSION Findings / Impression: Tubes and lines appropriately located. The right IJ sheath has been withdrawn. No pneumothorax. Persistent small left effusion along with left basilar consolidation/atelectasis. No pulmonary edema. Stable prominence of the cardiomediastinal silhouette. Trachea central. Otherwise grossly unchanged exam. LACTIC ACID, WHOLE BLOOD ([facility]) (10/01/2016 3:35 AM)Only the most recent of9 resultswithin the time period is included. Component Value Range Lactic Acid, Whole Blood 0.9Comment: 0.5-2.0 mEq/L Glycolate, the principle toxic metabolite of ethylene glycol, can cause artifactual elevation of measured lactate. Specimen Whole Blood GLUCOSE ([facility] LAB[facility]) (10/01/2016 3:35 AM)Only the most recent of10 resultswithin the time period is included. Component Value Range Glucose, Whole Blood 99 65-99 mg/dL Specimen Whole Blood POTASSIUM ([facility]) (10/01/2016 3:35 AM)Only the most recent of10 resultswithin the time period is included. Component Value Range Potassium, Whole Blood 4.5Comment: 3.5-5.0 mEq/L Sample run on whole blood.Hemolysis is not measured. Specimen Whole Blood UREA NITROGEN-URINE,RANDOM (09/30/2016 2:40 PM)Only the most recent of2 resultswithin the time period is included. Component Value Range Urea Nitrogen, Urine, Random 776 mg/dL Specimen Urine SODIUM-URINE,RANDOM (09/30/2016 2:40 PM)Only the most recent of2 resultswithin the time period is included. Component Value Range Sodium, Urine, Random 34 mEq/L Specimen Urine CREATININE-URINE, RANDOM (09/30/2016 2:40 PM)Only the most recent of2 resultswithin the time period is included. Component Value Range Creatinine, Urine, Random 172.2 mg/dL Specimen Urine ARTERIAL BLOOD GAS ([facility]) (09/29/2016 2:06 PM)Only the most recent of9 resultswithin the time period is included. Component Value Range pH, Arterial 7.40 7.35-7.45 pCO2, Arterial 34(L) 35-45 torr pO2, Arterial 78(L) 80-90 torr Base Excess, Arterial -4(L) -2-2 mEq/L Bicarbonate, Arterial 21(L) 22-26 mEq/L Total CO2, Arterial 22(L) 24-32 mEq/L Temperature, Arterial 37.0 Degrees C Specimen Whole Blood VENOUS OXYGEN SATURATION ([facility]) (09/29/2016 11:24 AM)Only the most recent of6 resultswithin the time period is included. Component Value Range Venous O2 Saturation 55.7 % Venous Oxyhemoglobin 54.1 % Specimen Whole Blood CALCIUM, IONIZED ([facility]) (09/29/2016 4:09 AM)Only the most recent of4 resultswithin the time period is included. Component Value Range Ionized Calcium 4.5 3.8-5.2 mg/dL Specimen Whole Blood CALCIUM (09/29/2016 4:09 AM)Only the most recent of2 resultswithin the time period is included. Component Value Range Calcium 7.9(L) 8.5-10.5 mg/dL Specimen Blood PLATELET COUNT (09/29/2016 4:09 AM)Only the most recent of13 resultswithin the time period is included. Component Value Range Platelet Count 135(L) 150-400 K/MM3 Specimen Whole Blood PT/INR (PROTHROMBIN TIME/INR) VENOUS (09/29/2016 4:09 AM)Only the most recent of9 resultswithin the time period is included. Component Value Range PT (Prothrombin Time) 12 9-12 secs INR 1.1 <4.0 Specimen Blood PTT (PARTIAL THROMBOPLASTIN TIME) (09/29/2016 4:09 AM)Only the most recent of20 resultswithin the time period is included. Component Value Range PTT 45(H) 22-31 secs Specimen Blood FIBRINOGEN (09/28/2016 7:06 PM)Only the most recent of5 resultswithin the time period is included. Component Value Range Fibrinogen 216 180-400 mg/dL Specimen Blood PLASMA DISPENSE FROM BLOOD BANK (09/28/2016 7:03 PM)Only the most recent of2 resultswithin the time period is included. Component Value Range Blood Coding System [id number] Blood Product Volume 272 Blood Product ABORH A Pos Blood Unit Number [id number] BLOOD DISPENSE STATUS RET Blood Product Type FFP Blood Product Code [id number] Blood Coding System [id number] Blood Product Volume 310 Blood Product ABORH A Pos Blood Unit Number [id number] BLOOD DISPENSE STATUS RET Blood Product Type FFP Blood Product Code [id number] Blood Coding System [id number] Blood Product Volume 327 Blood Product ABORH A Pos Blood Unit Number [id number] BLOOD DISPENSE STATUS RET Blood Product Type FFP Blood Product Code [id number] Blood Coding System [id number] Blood Product Volume 327 Blood Product ABORH A Pos Blood Unit Number [id number] BLOOD DISPENSE STATUS RET Blood Product Type FFP Blood Product Code E1682P20 RED BLOOD CELLS DISPENSE FROM BLOOD BANK (09/28/2016 7:03 PM)Only the most recent of3 resultswithin the time period is included. Component Value Range Blood Coding System [id number] Blood Product Volume 325 Blood Product ABORH O Pos Blood Unit Number [id number] BLOOD DISPENSE STATUS RET Blood Product Type Red Blood Cells Blood Product Code J0769M46 HEPARINASE THROMBOELASTOGRAPH (09/28/2016 5:19 PM)Only the most recent of3 resultswithin the time period is included. Component Value Range Hep Initial Clot Formation 5.3 5.0-10.0 mins Hep Kinetics 1.1 1.0-3.0 mins Hep Angle 74.9(H) 53.0-72.0 Degrees Hep Maximum Amplitude 66.1 50.0-70.0 mm Hep LY30 0.0 0.0-8.0 % Hep Coagulation Index 2.2 -3.0-3.0 Hep Clot Strength G 9.7 4.5-11.0 Kd/cm2 Specimen Blood PLATELETS DISPENSE FROM BLOOD BANK (09/28/2016 5:07 PM)Only the most recent of3 resultswithin the time period is included. Component Value Range Blood Coding System [id number] Blood Product Volume 221 Blood Product ABORH O Pos Blood Unit Number [id number] BLOOD DISPENSE STATUS ISS Blood Product Type Platelets Blood Product Code X3063P14 CHLORIDE ([facility]) (09/28/2016 8:57 AM) Component Value Range Chloride, Whole Blood 114(H) 95-107 mEq/L Specimen Whole Blood SODIUM ([facility]) (09/28/2016 8:57 AM) Component Value Range Sodium, Whole Blood 141 135-145 mEq/L Specimen Whole Blood ECHO ADULT - INTRAOPERATIVE PATRICK (FOR USE BY ANESTHESIA) (09/28/2016 7:46 AM) Component Value Range Interpretation Summary TRANSESOPHAGEAL ECHOCARDIOGRAM Intraoperative study during CABG surgery and closure of PFO. PRE-BYPASS Normal left ventricular size. Left ventricular hypertrophy. Normal left ventricular wall motion.Abnormal LV diastolic function. Possibly enlarged right ventricular size. Normal right ventricular systolic function. Patent foramen ovale with 'left to right' shunting seen by color flow mapping. Trace mitral regurgitation.Trace Tricuspid regurgitation Trileaflet Aortic valve. Mild aortic insufficiency by color Doppler. Descending aorta atheroma noted.Possible atheromata in aortic arch. POST-BYPASS Hyperdynamic LV systolic function in setting of inotropic infusions. No new LV wall motion abnormalities. Patient Height (cm) 190.5 cm Patient Weight (kg) 108.4 kg Systolic Pressure (mmHg) 137 mmHg Diastolic Pressure (mmHg) 62 mmHg BSA (meters^2) 2.4 m^2 Left Ventricle (LV) Normal left ventricular size. Left ventricular hypertrophy. Abnormal LV diastolic function. Normal left ventricular wall motion Right Ventricle (RV) Possibly enlarged right ventricular size. There is a catheter in the right ventricle. Normal right ventricular systolic function. Left and Right Atria (LA, RA) LA chamber size: probably enlarged Enlarged right atrial size. Patent foramen ovale with 'left to right' shunting seen by color flow mapping. Mitral Valve (MV) Probably normal mitral valve leaflet morphology Trace mitral regurgitation Tricuspid Valve (TV) Visualization of the TV is poor. Trace Tricuspid regurgitation Aortic Valve (AoV) Trileaflet Aortic valve. Aortic valve leaflets do not appear to be significantly restricted. Mild aortic insufficiency by color Doppler. Pulmonic Valve (PV) Visualization of the Pulmonic Valve is limited No pulmonic valvular regurgitation by doppler Aorta and Pulmonary Artery (Ao, PA) The aortic annulus measures 2.5cm The Sinus of Valsalva measures 3.27cm The sinotubular junction measures 2.84cm The ascending aorta measures 3.5cm Descending aorta atheroma noted Possible atheromata in aortic arch. Procedures PATRICK ([id number]) Color Flow ([id number]) Limited Doppler ([id number]) I was present for the corral portions of the procedure defined as echo imaging, probe manipulation, and provided my interpretation in the OR Reason For Study Assess Cardiac Function Exercise Scientist Akil Scruggs Interpreting Physician Akil Scruggs MD electronically signed on 2016-10-05 12:43:22.307 URINE MICROSCOPIC (09/27/2016 3:48 PM) Component Value Range White Blood Cells, Urine <1 0-5 /HPF Red Blood Cells, Urine <1 0-2 /HPF Mucous-Urine Rare None, Rare Specimen Urine URINALYSIS (09/27/2016 3:48 PM)Only the most recent of2 resultswithin the time period is included. Component Value Range Color, Urine Yellow Straw, Pale Yellow, Yellow, Clear, None Clarity, Urine Clear Clear pH, Urine 5.0 <9.0 Glucose, Urine Negative Negative Blood, Urine Negative Negative Ketones, Urine Negative Negative Protein, Urine Negative Negative Urobilinogen, Urine Normal Normal Bilirubin, Urine Negative Negative Leukocyte Esterase, Urine Negative Negative Nitrite, Urine Negative Negative Spec [place], Urine 1.020 1.000-1.030 Specimen Urine HEPATIC FUNCTION PANEL (09/27/2016 10:35 AM) Component Value Range Albumin 3.4 3.4-4.8 g/dL ALP 85 40-129 U/L Bilirubin Total 0.3 <=1.2 mg/dL Bilirubin, Direct <0.2 0.0-0.2 mg/dL AST 23Comment: 0-40 U/L Adult reference ranges updated on 04/18/13 at 830am ALT 41Comment: 0-41 U/L The upper limit of normal for alanine aminotransferase (ALT) reference ranges for adults is controversial with some authorities recommending limit as low as 30 U/L for males and 19 U/L for females. Th ere is increased incidence of subclinical liver disease (e.g., early steatohepatitis) in patients with ALT values in the range of 31-41 U/L for males and 20-33 U/L for females. ALT values should alway s be interpreted in conjunction with clinical history, physical examination findings, and, if applicable, data from other diagnostic tests. Total Protein 8.0 6.0-8.0 g/dL Specimen Blood PREALBUMIN (09/27/2016 10:35 AM) Component Value Range Prealbumin 21 18-45 mg/dL Specimen Blood TYPE AND SCREEN (BLOOD TYPE(ABORH) AND RBC ANTIBODY SCREEN) (09/27/2016 10:35 AM ) Component Value Range ABORH O Positive Specimen Expiration Date 2016-09-30 Antibody Screen Negative Specimen Blood IR CT GUIDED NEEDLE BIOPSY LUNG/MEDIASTINUM ([id number], [id number]) (09/25/2016 3:59 PM) Impressions IMPRESSION: 1. Successful CT guided biopsy of a right fourth rib lesion. PLAN: 1. Patient to return to inpatient floor. 2. Patient to continue follow up with primary provider. 3. Follow-up chest radiograph in one hour. 4. Okay to resume heparin 3 hours post procedure. Narrative PROCEDURE: CT guided lung biopsy. INDICATIONS: Right fourth rib lesion ACCESS: Right chest wall SPECIMENS:Core specimen x4 CONTRAST: None ANESTHESIA:1% Local lidocaine MEDICATION: 0.5 mg Versed IV, 50 mcg Fentanyl IV. PHYSICIANS:STAFF RADIOLOGIST: Dr. Horn POLICE BOOKING OFFICER: Dr. Oconnor PULSES:Intact bilaterally COMPLICATIONS:None immediate BLOOD LOSS: Minimal FLUORO TIME & DOSE: Not applicable; Procedure done under CT guidance. SEDATION START TIME: 310 PM SEDATION STOP TIME: 345 PM TECHNIQUE/FINDINGS:The patient was identified.After the risks and benefits of the procedure were discussed with the Patient, an informed written consent was obtained.The patient was then brought back to CT scanner and placed supine on the table.A time out was performed. An entry site was localized using CT guidance along the plane where the existing rib lesion is seen. The area overlying the planned entry site was marked, prepped and draped in the usual sterile fashion. Approximately 5 ml of 1% lidocaine was infused locally. An 11 blade scalpel was then used to make a tiny entry incision for for a Temno 17 gauge x 10 cm 17 gauge x 6 cm introducer needle, which was advanced percutaneously until its tip was seen just to the surface of the mass. Next, a Temno 18 gauge x 15 cm 18 gauge x 11 cm biopsy needle was placed within the introducer and 4 core biopsies were obtained and placed in preservative solution and sent to pathology for analysis. The introducer and biopsy needle were then removed. Post biopsy CT showed no immediate complication. The needle was removed. The procedure was terminated here. The patient tolerated the procedure well. There were no complications. Dr. Horn performed the entire procedure. Procedure Note French, Incoming Imaging Results - WedSeptember 28, 2016 2:08 PM CDT PROCEDURE: CT guided lung biopsy. INDICATIONS: Right fourth rib lesion ACCESS: Right chest wall SPECIMENS: Core specimen x4 CONTRAST: None ANESTHESIA: 1% Local lidocaine MEDICATION: 0.5 mg Versed IV, 50 mcg Fentanyl IV. PHYSICIANS: STAFF RADIOLOGIST: Dr. Horn POLICE BOOKING OFFICER: Dr. Oconnor PULSES: Intact bilaterally COMPLICATIONS: None immediate BLOOD LOSS: Minimal FLUORO TIME & DOSE: Not applicable; Procedure done under CT guidance. SEDATION START TIME: 310 PM SEDATION STOP TIME: 345 PM TECHNIQUE/FINDINGS: The patient was identified. After the risks and benefits of the procedure were discussed with the Patient, an informed written consent was obtained. The patient was then brought back to CT scanner and placed supine on the table. A time out was performed. An entry site was localized using CT guidance along the plane where the existing rib lesion is seen. The area overlying the planned entry site was marked, prepped and draped in the usual sterile fashion. Approximately 5 ml of 1% lidocaine was infused locally. An 11 blade scalpel was then used to make a tiny entry incision for for a Temno 17 gauge x 10 cm 17 gauge x 6 cm introducer needle, which was advanced percutaneously until its tip was seen just to the surface of the mass. Next, a Temno 18 gauge x 15 cm 18 gauge x 11 cm biopsy needle was placed within the introducer and 4 core biopsies were obtained and placed in preservative solution and sent to pathology for analysis. The introducer and biopsy needle were then removed. Post biopsy CT showed no immediate complication. The needle was removed. The procedure was terminated here. The patient tolerated the procedure well. There were no complications. Dr. Horn performed the entire procedure. IMPRESSION IMPRESSION: 1. Successful CT guided biopsy of a right fourth rib lesion. PLAN: 1. Patient to return to inpatient floor. 2. Patient to continue follow up with primary provider. 3. Follow-up chest radiograph in one hour. 4. Okay to resume heparin 3 hours post procedure. FLOW CYTOMETRY ANALYSIS, OTHER (09/25/2016 3:31 PM) Component Value Range Flow Cytometry Specimen source: Other, Specify Description: right 4th rib Interpretation Findings reveal a 7.5% population of kappa-monotypic plasma cells, indicating a plasma cell neoplasm. Of note, the percentage of plasma cells is typically underestimated by flow cytometry. Final inter pretation requires correlation with morphologic, clinical and other laboratory features. When 2 million events are collected the lower limit of detecting plasma cells is 0.001%. Findings A targeted multicolor flow cytometric evaluation is performed using the listed antibodies. There is a 7.5% population of plasma cells with the following immunophenotype: bright CD38+, CD138+, CD19-, d im CD45+, heterogenous CD27+, CD56+, CD117-, CD81-, cytoplasmic kappa+, lambda-. No polytypic plasma cells and no polytypic B lymphocytes are identified. Remaining events are attributable to granulocytes, monocytes, other uncharacterized populations and debris. Marker Panel Performed cKAPPA/cLAMBDA/CD19/CD27/CD117/CD56/CD81/CD138/CD45/CD38 Performed by:Katarina Shannon MD, R2 I have personally reviewed this case and edited the report as necessary. Comment:Notice: Tests involving the use of the monoclonal and/or polyclonal antibodies utilized in this study were developed and their performance characteristics determined by [facility]. They are included among the group of laboratory testing materials know as "analyte specific reagents" and have not been cleared or approved by the U.S. Food and Drug Administration. (The preceding statement is required by the U.S.FDA.) Specimen Other - Other, Specify CYTOLOGY, FINE NEEDLE ASPIRATE (FNA) (09/25/2016 3:31 PM) Component Value Range Case Report Non-Hat Presser Cytopathology Case: [id number] Authorizing Provider:Ana Maria Bundy ARNP Collected: 09/25/2016 03:31 PM Ordering Location: Interventional Radiology:Received: 09/25/2016 03:53 PM Procedure Pathologist: Cha Liu MD Specimen:Other, Specify, Right 4th rib lesion, core biopsy Interpretation Right 4th rib lesion, core needle biopsies with touch preparations: Plasma cell neoplasm. See comment. Comment:Please see concurrent flow cytometry report ([id number]). I have personally reviewed this case and edited the report as necessary. Specimen Description Right 4th rib lesion, Core Biopsy 3 Diff-Quik stained slides Received in formalin, in a container labeled with Carson Bajwa and hospital number are aggregate of red cylindrical soft tissue cores, 0.1 to 0.6 cm in length x 0.1 cm in diameter. All submitted in A1. Adequacy Assessment Right 4th rib lesion, Core Biopsy Touch Prep Adequacy Assessment 1: (Passes 1-3):Adequate material for diagnosis. Ann Santos MD, Fellow Microscopic Microscopic examination performed on core biopsy and supports the diagnosis. Specimen Other - Other, Specify PROTEIN-URINE,RANDOM (09/24/2016 6:05 PM) Component Value Range Total Protein, Urine, Random 26 mg/dL Protein/Creatinine Ratio 0.19 <=0.[address] CHEST WO CONTRAST ([id number]) (09/23/2016 8:25 AM) Narrative Procedure: CT CHEST WO CONTRAST ([id number]) Clinical Indication:Preop CABG, rule out aortic calcifications Technique: Chest CT without intravenous contrast. Comparison: Limited CT images obtained as part of nuclear medicine myocardial perfusion study dated 01/01/2015. Abdominal MR dated 08/21/2016. Findings: Supraclavicular, axillary, mediastinal, hilar: The majority of the mediastinal lymph nodes are small and benign appearing. However, there is one 1.5 x 2.5 x 3.0 cm smoothly marginated noncalcified mass posteriorly in the trachea at the level of the azygos arch (image [id number]). A similar appearing mass was present on the prior attenuation CT of 04/12/2015 but given the limited quality of that study interval change cannot be accurately assessed. Cardiovascular: Severe three-vessel coronary artery atherosclerotic calcifications are present. There is fusiform dilatation of the ascending aorta to 3.5 x 3.9 cm without calcifications. Minimal punctate calcifications are present in the remainder the great vessels as well as descending aorta. Abdomen: Multiple well marginated fluid attenuation lesions are scattered throughout the liver, most consistent with simple cysts or hemangiomas. The left kidney is incompletely evaluated as it extends below the ctqmp-fm-tubj however it appears slightly atrophic relative to the right. There are no large calcified plaques at the origin of the left renal artery however narrowing cannot be assessed by this exam. A low-attenuation lesion in the left kidney suggests a simple cyst. A 2 cm low-attenuation lesion is present in the body of the pancreas is poorly evaluated given the absence of intravenous contrast material. Lungs, airways, pleura: Scattered punctate calcified granulomas are present. A subpleural lymph node is present in the lateral basal segment of the right lower lobe (image [id number]). A nonspecific 2 mm nodules present just above the right hemidiaphragm in the posterior basal segment (image [id number]). Given location, this may be a subpleural lymph node.. Chest wall, musculoskeletal: A 1.8 x 1.4 x 1.7 cm expansile soft tissue attenuation lesion is present in the anterolateral right fourth rib. There is an associated fracture. This was not present on the prior CT. Lines and tubes: None. Impression: 1. Severe three-vessel coronary artery atherosclerosis without significant calcifications in the ascending aorta. 2. 2 cm cystic lesion in the body of the pancreas. This has previously been evaluated by MRI and is currently being followed. 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 Expansile soft tissue lesion in the right fourth rib with associated fracture, suspicious for metastatic lesion. Due to its location behind the scapula, it would not be amenable to percutaneous biopsy. 4. Nonspecific retrotracheal mass in the mediastinum, consistent with enlarged lymph node. This may have been present on the attenuation CT images from the PET myocardial perfusion study of 2014 but given difference in techniques, interval change cannot accurately be assessed. If there is clinical concern for this lesion, it would be amenable to bronchoscopic biopsy. 5. Nonspecific low-attenuation lesions scattered throughout the liver suggests multiple cysts or hemangiomas. I contacted Ana Maria Bundy ([id number]) at [phone] on 09/23/2016 with these findings. Procedure Note French, Incoming Imaging Results - WedSeptember 23, 2016 9:26 AM CDT Procedure: CT CHEST WO CONTRAST ([id number]) Clinical Indication: Preop CABG, rule out aortic calcifications Technique: Chest CT without intravenous contrast. Comparison: Limited CT images obtained as part of nuclear medicine myocardial perfusion study dated 01/01/2015. Abdominal MR dated 08/21/2016. Findings: Supraclavicular, axillary, mediastinal, hilar: The majority of the mediastinal lymph nodes are small and benign appearing. However, there is one 1.5 x 2.5 x 3.0 cm smoothly marginated noncalcified mass posteriorly in the trachea at the level of the azygos arch (image [id number]). A similar appearing mass was present on the prior attenuation CT of 04/12/2015 but given the limited quality of that study interval change cannot be accurately assessed. Cardiovascular: Severe three-vessel coronary artery atherosclerotic calcifications are present. There is fusiform dilatation of the ascending aorta to 3.5 x 3.9 cm without calcifications. Minimal punctate calcifications are present in the remainder the great vessels as well as descending aorta. Abdomen: Multiple well marginated fluid attenuation lesions are scattered throughout the liver, most consistent with simple cysts or hemangiomas. The left kidney is incompletely evaluated as it extends below the dobip-tn-cojk however it appears slightly atrophic relative to the right. There are no large calcified plaques at the origin of the left renal artery however narrowing cannot be assessed by this exam. A low-attenuation lesion in the left kidney suggests a simple cyst. A 2 cm low-attenuation lesion is present in the body of the pancreas is poorly evaluated given the absence of intravenous contrast material. Lungs, airways, pleura: Scattered punctate calcified granulomas are present. A subpleural lymph node is present in the lateral basal segment of the right lower lobe (image [id number]). A nonspecific 2 mm nodules present just above the right hemidiaphragm in the posterior basal segment (image [id number]). Given location, this may be a subpleural lymph node.. Chest wall, musculoskeletal: A 1.8 x 1.4 x 1.7 cm expansile soft tissue attenuation lesion is present in the anterolateral right fourth rib. There is an associated fracture. This was not present on the prior CT. Lines and tubes: None. Impression: 1. Severe three-vessel coronary artery atherosclerosis without significant calcifications in the ascending aorta. 2. 2 cm cystic lesion in the body of the pancreas. This has previously been evaluated by MRI and is currently being followed. 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 Expansile soft tissue lesion in the right fourth rib with associated fracture, suspicious for metastatic lesion. Due to its location behind the scapula, it would not be amenable to percutaneous biopsy. 4. Nonspecific retrotracheal mass in the mediastinum, consistent with enlarged lymph node. This may have been present on the attenuation CT images from the PET myocardial perfusion study of 2014 but given difference in techniques, interval change cannot accurately be assessed. If there is clinical concern for this lesion, it would be amenable to bronchoscopic biopsy. 5. Nonspecific low-attenuation lesions scattered throughout the liver suggests multiple cysts or hemangiomas. I contacted Ana Maria Bundy ([id number]) at [phone] on 09/23/2016 with these findings. HEMOGLOBIN A1C (09/23/2016 6:56 AM) Component Value Range Hemoglobin A1c 5.4Comment: 4.8-6.0 % Glycemic Control Guidelines: Non-diabetic <6% Goal <7% Therapeutic Action >8% Estimated Average Glucose 108Comment: mg/dL The estimated average glucose (eAG) calculated from the HbA1c changed on 10/01.See Laboratory Bulletins in the Department of Pathology Laboratory Services Handbook for a full discussion.Not e that the new calculated glucose will now be lower.The A1c result is unchanged. Specimen Whole Blood PULMONARY FUNCTION TEST (PFT) (09/22/2016 1:26 PM) Component Value Range FVC Predicted 4.95 0.05-9.99 Liters FVC 3.71 0 - 12 Liters FVC %Predicted 75 0-300 % FEV1 Predicted 3.58 0.05-9.99 Liters FEV1 2.66 0 - 12 Liters FEV1% Predicted 74 0-300 % FEV1/FVC Predicted 72 1-99 % FEV1/FVC 72 0 - 12 % FEF 25-75% Predicted 2.54 0-12 L/sec FEF 25-75% 1.79 0-12 L/sec FEF 25-75% %Pre Predicted 70 0-300 % PEF Predicted 8.60 0-18 L/sec PEF Pre BD 7.26 0-18 L/sec PEF % Pre Predicted 84 0-300 % PIF PRE BD 3.04 0-18 L/sec FEV6 PRE 3.65 0 - 12 Liters MVV Predicted 143 0-300 L/min VC PREDICTED 4.95 0.05-9.99 Liters TLC Predicted 7.54 0.05-11.99 Liters RV Predicted 3.01 0.05-9.99 Liters RV/TLC Predicted 43 0-300 % FRC PL Predicted 4.07 0.05-9.99 Liters DLCO Predicted 26.3 0.05-99.99 mL/mmHg/min DLCO ADJ Predicted 26.3 1-2 mL/mmHg/min PI MAX Predicted 100 cmH2O VASC HA, PVR, TOE BP (09/22/2016 9:16 AM) Component Value Range VASC RIGHT ARM BP 130 mmHg VASC LEFT ARM BP 124 mmHg VASC RIGHT POSTERIOR TIBIAL 124 mmHg VASC LEFT POSTERIOR TIBIAL 117 mmHg VASC RIGHT ANTERIOR TIBIAL 130 mmHg VASC LEFT ANTERIOR TIBIAL 137 mmHg VASC RIGHT HA 1.00 VASC LEFT HA 1.05 VASC RIGHT TOE PRESSURE 81 mmHg VASC LEFT TOE PRESSURE 87 mmHg VASC RIGHT TBI 0.62 VASC LEFT TBI 0.67 VASC CAROTID DUPLEX SCAN (BILATERAL) (09/22/2016 9:12 AM) Component Value Range [facility] VASC RIGHT CCA PROX PSV 66 cm/sec [facility] VASC RIGHT CCA PROX PEDV 14 cm/sec [facility] VASC RIGHT CCA DIST PSV 67 cm/sec [facility] VASC RIGHT CCA DIST PEDV 18 cm/sec [facility] VASC RIGHT ICA PROX PSV 154 cm/sec [facility] VASC RIGHT ICA PROX PEDV 26 cm/sec [facility] VASC RIGHT ICA DIST PSV 85 cm/sec [facility] VASC RIGHT ICA DIST PEDV 20 cm/sec [facility] VASC RIGHT ECA PSV 256 cm/sec [facility] VASC RIGHT ECA PEDV 14 cm/sec [facility] VASC RIGHT VERTEBRAL PSV 73 cm/sec [facility] VASC RIGHT VERTEBRAL PEDV 18 cm/sec [facility] VASC RIGHT ICA/CCA 2.30 [facility] VASC LEFT CCA PROX PSV 131 cm/sec [facility] VASC LEFT CCA PROX PEDV 27 cm/sec [facility] VASC LEFT CCA DIST PSV 123 cm/sec [facility] VASC LEFT CCA DIST PEDV 24 cm/sec [facility] VASC LEFT ICA PROX PSV 127 cm/sec [facility] VASC LEFT ICA PROX PEDV 30 cm/sec [facility] VASC LEFT ICA DIST PSV 99 cm/sec [facility] VASC LEFT ICA DIST PEDV 34 cm/sec [facility] VASC LEFT ECA PSV 200 cm/sec [facility] VASC LEFT ECA PEDV 17 cm/sec [facility] VASC LEFT VERTEBRAL PSV 63 cm/sec [facility] VASC LEFT VERTEBRAL PEDV 16 cm/sec [facility] VASC LEFT ICA/CCA 1.03 VASC INTERNAL MAMMARY ARTERY WAVEFORMS (09/22/2016 9:11 AM) Component Value Range VASC [place] RIGHT PSV 142 cm/sec VASC [place] RIGHT PEDV 0 cm/sec VASC [place] LEFT PSV 123 cm/sec VASC [place] LEFT PEDV 0 cm/sec VASC MEASURE SAPHENOUS VEIN - VENOUS DUPLEX (09/22/2016 9:10 AM) Component Value Range VASC VEINMAP RIGHT GSV HT 4.5 mm VASC VEINMAP RIGHT GSV AK 3.1 mm VASC VEINMAP RIGHT GSV BK 3.0 mm VASC VEINMAP RIGHT GSV DISTAL CALF 2.7 mm VASC VEINMAP LEFT GSV HT 3.5 mm VASC VEINMAP LEFT GSV AK 3.1 mm VASC VEINMAP LEFT GSV BK 2.6 mm VASC VEINMAP LEFT GSV DISTAL CALF 2.5 mm ECHO ADULT - ECHOCARDIOGRAM, TRANSTHORACIC (09/22/2016 8:45 AM) Component Value Range Interpretation Summary TRANSTHORACIC ECHOCARDIOGRAM Normal left ventricular systolic function. LV Ejection Fraction=63% (based on Biplane Method of Discs). E/E' ratio is 14, which is indeterminate for LV filling pressure prediction. [place] and apical anterior wall - hypokinetic.Lateral wall (base and early mid) - hypokinetic. Left ventricular hypertrophy. Mild aortic insufficiency by color Doppler. Aortic valve sclerosis. Aortic valve peak instantaneous gradient=18 mmHg. Trivial pericardial effusion. Patient Height (cm) 190.5 cm Patient Weight (kg) 108.4 kg Systolic Pressure (mmHg) 142 mmHg Diastolic Pressure (mmHg) 71 mmHg BSA (meters^2) 2.4 m^2 Left Ventricle (LV) Normal left ventricular size. Left ventricular hypertrophy. Sigmoid septum noted (normal variant) Normal left ventricular systolic function. E/E' ratio is 14, which is indeterminate for LV filling pressure prediction. LV Ejection Fraction=63% (based on Biplane Method of Discs). [place] and apical anterior wall - hypokinetic.Lateral wall (base and early mid) - hypokinetic. Right Ventricle (RV) Upper limit of normal right ventricular size. Normal right ventricular systolic function. Tricuspid annular plane systolic excursion is normal, measuring 19 mm; which suggests normal RV function.(Normal excursion is 17 mm or greater) Left and Right Atria (LA, RA) Upper limit of normal left atrial chamber size. LA ESV index=25 ml/m2. Normal right atrial size. Mitral Valve (MV) Mildly thickened mitral valve leaflets Mildly calcified mitral annulus Trace mitral regurgitation, may be physiologic Tricuspid Valve (TV) The TV leaflets are not well seen but do not appear restricted. Trace Tricuspid regurgitation, may be physiologic RV/RA peak instantaneous systolic gradient=23mmHg (spectral Doppler). Doppler tracings across the Tricuspid Valve are suboptimal.This may result in an underestimate of the RV/RA systolic pressure Aortic Valve (AoV) Trileaflet Aortic valve Mildly calcified aortic valve leaflets Mild aortic insufficiency by color Doppler. Aortic valve sclerosis. Aortic valve peak instantaneous gradient=18 mmHg. Pulmonic Valve (PV) Visualization of the Pulmonic Valve is limited Probably normal pulmonic valve Trace pulmonic valve insufficiency by doppler. Aorta and Pulmonary Artery (Ao, PA) The aortic root is normal size. Pulmonary arteries not well visualized Pericardium/Pleura Trivial pericardial effusion. Anterior clear space noted, which likely represents epicardial fat. Procedures Complete 2D with Doppler, Color Flow and image documentation ( [id number]) I personally viewed the echocardiogram and approve the above interpretation Inf. Vena Cava (IVC) / Pulm. Veins The IVC size is normal (< 2.1 cm). Primary ICD-9 Code Chest pain, unspecified (786.50) IVSd 1.3 cm LVIDd 5.0 cm LVIDs 4.0 cm LVPWd 0.97 cm IVS/LVPW 1.3 Ao root diam 2.6 cm Ao root area 5.5 cm^2 LA dimension 4.1 cm LA/Ao 1.5 LVOT diam 2.5 cm LVOT area 5.0 cm^2 LVAd ap4 39.4 cm^2 EF(MOD-sp4) 59.7 % MV E max tammi 60.2 cm/sec MV dec time 0.26 sec AI dec slope 248.4 cm/sec^2 AI P1/2t 399.9 msec Low Range of LVEF 63 High Range of LVEF 63 Reason For Study Assess Cardiac Function Exercise Scientist Krys Perry Interpreting Physician Bhumi Lux MD electronically signed on 2016-09-22 10:33:[id number] TROPONIN T (09/22/2016 6:55 AM)Only the most recent of4 resultswithin the time period is included. Component Value Range Troponin-T 1.00(H) <=0.10 ng/mL Specimen Blood CARDIAC CATHETERIZATION (09/21/2016 1:47 PM) Narrative 1. Multivessel coronary artery disease as described above 2. Normal LV filling pressures DIFFERENTIAL (09/19/2016 6:39 AM) Component Value Range % Neutrophils-Auto Diff 65.1 % Neutrophils-Auto Diff 3610 3430-2101 /MM3 % Lymphocytes-Auto Diff 19.3 % Lymphocytes-Auto Diff 0474 872-0972 /MM3 % Monocytes-Auto Diff 12.5 % Monocytes-Auto Diff 690 130-860 /MM3 % Eosinophils-Auto Diff 2.2 % Eosinophils-Auto Diff 120 40-390 /MM3 % Basophils 0.5 % Basophils-Auto Diff 30 10-136 /MM3 % Immature Granulocytes-Auto Diff 0.4 % Immature Granulocytes-Auto Diff 20 /MM3 Specimen Whole Blood CBC (COMPLETE BLOOD COUNT) (09/19/2016 6:39 AM) Component Value Range WBC Count 5.5 3.7-10.5 K/MM3 RBC Count 4.20(L) 4.50-6.20 M/MM3 Hemoglobin 11.9(L) 13.2-17.7 g/dL Hematocrit 35(L) 40-52 % MCV (Mean Corpuscular Volume) 84 82-99 FL MCH (Mean Corpuscular Hemoglobin) 28 25-35 PG MCHC (Mean Corpuscular Hemoglobin Concentration) 34 32-36 % Platelet Count 171 150-400 K/MM3 MPV (Mean Platelet Volume) 10.3 9.4-12.3 FL RBC Dist Width-STD 44.3(H) 35.1-43.9 FL RBC Distrib Width 14.6(H) 9.0-14.5 % Nucleated RBC 0 /100 WBC Specimen Whole Blood CBC WITH DIFFERENTIAL (09/19/2016 6:39 AM) Specimen Whole Blood Narrative The following orders were created for panel order CBC WITH DIFFERENTIAL. Procedure Abnormality Status --------- ------ CBC (COMPLETE BLOOD COUNT)[[id number]] AbnormalFinal result DIFFERENTIAL[[id number]] Final result Please view results for these tests on the individual orders. MRI ABDOMEN WO CONTRAST ([id number]) (08/21/2016 9:56 AM) Impressions Impression: 1. Limited [...] hemangiomas. Narrative Procedure: MRI ABDOMEN WO CONTRAST ([id number]) Clinical Indication: Pancreatic cyst, concerning for IPMN. evaluate Technique: MRI of the abdomen with attention to the pancreas and MRCP were performed on a 1.5 Lauren scanner using a surface multicoil. Imaging consisted of 3 plane TrueFISP localizer, coronal HASTE T2 localizer, axial T1 FLASH in- and [id number], axial T2 fat-sat GRACE, axial T2* GRE, [...] PM CDT Procedure: MRI ABDOMEN WO CONTRAST ([id number]) Clinical Indication: Pancreatic cyst, concerning for IPMN. evaluate Technique: MRI of the abdomen with attention to the pancreas and MRCP were performed on a 1.5 Lauren scanner using a surface multicoil. Imaging consisted of 3 plane TrueFISP localizer, coronal HASTE T2 localizer, axial T1 FLASH in- and [id number], axial T2 fat-sat GRACE, axial T2* GRE, [...]
[2016-10-17 10:17] VITALS: BP 156/67
== END 2016-10-17 10:19 | disposition home or self-care (01) ==
LOC: ER 08:04
DX: E86.0 Dehydration (principal); Z85.828 Personal history of other malignant neoplasm of skin; K21.9 Gastro-esophageal reflux disease without esophagitis; I10 Essential (primary) hypertension; I25.2 Old myocardial infarction

== ENCOUNTER 2017-02-25 07:28 | Emergency (ER) | payer MEDICARE ==
[2017-02-25] MEDS ORDERED: KETOROLAC TROMETHAMINE 30 MG/ML VIAL IV ONE (08:04)
--- NOTE | 2017-02-25 08:12 | ERNOTE ---
Medical Problem HPI - Narrative Date of Service: 02/25/17 - General Chief Complaint: General Assessment Time Seen by Provider: 02/25/17 08:05 Source: patient, family Exam Limitations: no limitations - Immun/Allergies/Home Medications Immunizations: IMMUNIZATION HX Immunizations Up to Date Yes History of Influenza Vaccine No Hx Pneumococcal Vaccination No Allergies/Adverse Reactions: Allergies Sulfa (Sulfonamide Antibiotics) Allergy (Intermediate, Verified 02/25/17 07:43) Hives atorvastatin calcium [From Lipitor] Allergy (Verified 02/25/17 07:43) Home Medications: HOME MEDICATIONS Clopidogrel Bisulfate [Plavix] 75 mg PO DAILY 04/03/13 [Last Taken 04/13/14] Nitroglycerin 0.4 mg SL PRN 07/22/15 [Last Taken Unknown] Acetaminophen [Tylenol] 500 mg PO QID PRN #30 tablet 10/24/15 [Last Taken Unknown] Furosemide 20 mg PO DAILY 10/17/16 [Last Taken Unknown] Metoprolol Tartrate 50 mg PO HS 10/17/16 [Last Taken Unknown] Pravastatin Sodium [Pravachol] 20 mg PO DAILY 10/17/16 [Last Taken Unknown] amLODIPine BESYLATE [Norvasc] 2.5 mg PO DAILY 10/17/16 [Last Taken Unknown] Aspirin [Aspirin Enteric Coated] 81 mg PO DAILY 11/04/16 [Last Taken Unknown] Acyclovir [Zovirax] 400 mg PO BID 02/25/17 [Last Taken Unknown] Calcium 1,200 mg PO DAILY 02/25/17 [Last Taken Unknown] Cholecalciferol (Vitamin D3) [Vitamin D3] 5,000 unit PO DAILY 02/25/17 [Last Taken Unknown] Ciprofloxacin HCl [Cipro] 500 mg PO BID #20 tab 02/25/17 [Last Taken Unknown] Dexamethasone 4 mg PO ONCE 02/25/17 [Last Taken Unknown] Docusate Sodium [Doc-Q-Lace] 100 mg PO DAILY 02/25/17 [Last Taken Unknown] Fluconazole [Diflucan] 100 mg PO DAILY 02/25/17 [Last Taken Unknown] Omeprazole 20 mg PO DAILY 02/25/17 [Last Taken Unknown] Remlimid 02/25/17 [Last Taken Unknown] Sennosides [Senna Laxative] 8.6 mg PO DAILY 02/25/17 [Last Taken Unknown] metroNIDAZOLE [Flagyl] 500 mg PO Q8H #30 tablet 02/25/17 [Last Taken Unknown] - History of Present History Narrative: 81 yo WM with rapid onset left upper abdomen and flank pain last night. Intensified and about 21:30 hrs had sudden explosive diarrhea. No N&V, fever, chills. Pain continued and did not dissipate. Currently ongoing chemo therapy for multiple myeloma. Last round was last week and since has had tremors and weak feeling. Scheduled to see oncologist tomorrow. Date (Duration): 02/24/17 Timing: constant Severity: moderate Review of Systems - Review of Systems Constitutional: Present: no symptoms reported ENT: Present: no symptoms reported Respiratory: Present: no symptoms reported Cardiology: Present: no symptoms reported Genitourinary: Present: no symptoms reported Musculoskeletal: Present: muscle pain Skin: Present: no symptoms reported Neurological: Present: tremors - Patient's Past Medical History Patient History - Medical: Arthritis, GERD, Osteoarthritis, Other Patient History - Cardiac/Respiratory: Hypertension, Myocardial Infarction Patient History - Cancer: Myeloma, Skin Patient History - Surgical Procedures: Cancer Surgery, Colonoscopy, Coronary Bypass Surgery, Cardiac stent, EGD, T & A, Other Patient History - Other: None - Family History Mother Family History - Medical: Family History - Cardiac/Respiratory: Coronary Heart Disease Father Family History - Medical: Family History - Cardiac/Respiratory: Cardiomyopathy, Coronary Heart Disease Sister Family History - Medical: Family History - Cardiac/Respiratory: COPD - Social History Living Situations: spouse Abuse History: No History of abuse Psych History: No pertinent hx Have you smoked in the past 12 months: No Do you dip or chew tobacco: No Alcohol Use: rarely Drug Use: none - Immunizations Immunizations Up to Date: Yes Hx Pneumococcal Vaccination: No History of Influenza Vaccine: No Physical Exam - Physical Exam General Appearance: Present: wd/wn, alert, mild distress Head Exam: Present: normal inspection, no evidence of injury Eye Exam: PERRL: bilateral, EOMI: bilateral Ears, Nose, Throat: Present: normal ENT inspection Neck: Present: normal inspection, nontender Respiratory: Present: no respiratory distress, normal breath sounds Cardiovascular/Chest: Present: regular rate, rhythm, no murmur Gastrointestinal/Abdominal: Present: tenderness, abnormal bowel sounds, guarding , other - Tenderness at upper left at AAL just anterior to 12th rib. Extremity Exam: Present: normal inspection, pedal edema ED Progress - Date and Time Seen: Date and Time: 02/25/17 10:09 Good relief of pain with toradol - Results and Orders Patient's Lab Results:: I have reviewed the patient's lab results. - Vital Signs Patient's Vital Signs:: I have reviewed the patient's vital signs. Vital Signs: Vital Signs 02/25/17 07:36 Temperature 37.0 C Pulse Rate 70 Respiratory 18 Rate Blood Pressure 145/61 O2 Sat by Pulse 95 Oximetry - CT/Ultrasound CT/Ultrasound Narrative: CT noted. Occult diverticulitis possible. Will push CT to his oncologist since he has an appointment tomorrow. ?pancreatic mass - Progress/Reassessment Chief Complaint: General Assessment Plan - Plan Plan: Will start flagyl + cipro po. Use tylenol for pain. Return to ED if condition worsens Departure Clinical Impression: Abdominal pain - Departure Disposition: Home self-care Condition: Good Instructions: Abdominal Pain, Adult, [id number] Additional Instructions: Use tylenol 1000 mg every 6 hours as needed for pain Take cipro and flagyl as directed Follow up with oncologist tomorrow as scheduled. Return to ED if condition worsens. Prescriptions: Ciprofloxacin HCl [Cipro] 500 mg PO BID #20 tab metroNIDAZOLE [Flagyl] 500 mg PO Q8H #30 tablet
[2017-02-25] MEDS ORDERED: KETOROLAC TROMETHAMINE 30 MG/ML VIAL ONE (08:13)
[2017-02-25 08:21] LABS: Hematocrit 28.3 % (42.0-52.0); Hemoglobin 9.2 gm/dL (13.5-18.0); Mean Cell Volume 87.3 fl (78-100); Mean Corpuscular Hemoglobin 28.4 pg (27-31); Mean Corpuscular Hgb Conc 32.5 g/dl (32-36); Mean Platelet Volume 11.7 fl (6.0-9.5); Neutrophil # 2.9 K/mm3 (1.3-6.0); Platelet Count 104 K/mm3 (150-450); Red Blood Count 3.24 M/mm3 (4.7-6.0); Red Cell Distribution Width 21.2 % (11.5-14.0); White Blood Count 4.5 K/mm3 (4.0-10.5)
[2017-02-25 08:37] LABS: Albumin * 2.5 gm/dl (3.4-5.0); Anion Gap 10.4 mmol/L (6.8-13.8); BUN/Creatinine Ratio 16.2 (9.0-21.6); Bilirubin, Total 1.1 mg/dL (0.0-1.1); Ca. Corrected For Albumin 8.3 mg/dL (8.4-10.2); Calcium * 7.4 mg/dL (7.9-10.9); Carbon Dioxide 27.3 mmol/L (24-32.6); Potassium 3.7 mmol/L (3.4-4.6); Total Protein 5.8 gm/dL (6.2-8.2)
[2017-02-25 10:42] VITALS: BP 116/54
== END 2017-02-25 10:28 | disposition home or self-care (01) ==
LOC: ER 07:28
DX: R10.12 Left upper quadrant pain (principal); Z85.820 Personal history of malignant melanoma of skin; Z92.21 Personal history of antineoplastic chemotherapy; I25.2 Old myocardial infarction; Z95.5 Presence of coronary angioplasty implant and graft; K21.9 Gastro-esophageal reflux disease without esophagitis; I10 Essential (primary) hypertension

== ENCOUNTER 2018-07-06 17:14 | Inpatient (IN) ==
[2018-07-06] MEDS ORDERED: MORPHINE SULFATE 2 MG/ML DISP.SYRIN IV ONE (17:27)
[2018-07-06] MEDS ORDERED: DIPHTH,PERTUSS(ACELL),TET VAC 0.5 ML VIAL IM ONE (17:27)
--- NOTE | 2018-07-06 17:37 | ERNOTE ---
Trauma/Assault HPI - General Stated Complaint: fall Time Seen by Provider: 07/06/18 17:15 Source: patient Exam Limitations: no limitations - Immun/Allergies/Home Medications Immunizations: IMMUNIZATION HX Immunizations Up to Date Yes History of Influenza Vaccine No Hx Pneumococcal Vaccination No Allergies/Adverse Reactions: Allergies Sulfa (Sulfonamide Antibiotics) Allergy (Intermediate, Verified 07/06/18 17:28) Hives atorvastatin calcium [From Lipitor] Allergy (Verified 07/06/18 17:28) Muscle Pain Home Medications: HOME MEDICATIONS RX: Nitroglycerin 0.4 mg SL PRN 07/22/15 [Last Taken Unknown] Acetaminophen [Tylenol] 500 mg PO QID PRN #30 tab 10/24/15 [Last Taken Unknown] Aspirin [Aspirin Enteric Coated] 81 mg PO DAILY 11/04/16 [Last Taken Unknown] Acyclovir [Zovirax] 400 mg PO BID 02/25/17 [Last Taken Unknown] Calcium 1,250 mg PO DAILY 02/25/17 [Last Taken Unknown] Cholecalciferol (Vitamin D3) [Vitamin D3] 5,000 unit PO DAILY 02/25/17 [Last Taken Unknown] Docusate Sodium [Doc-Q-Lace] 100 mg PO DAILY 02/25/17 [Last Taken Unknown] Fluconazole [Diflucan] 100 mg PO DAILY 02/25/17 [Last Taken Unknown] RX: Omeprazole 20 mg PO DAILY 02/25/17 [Last Taken Unknown] Sennosides [Senna Laxative] 8.6 mg PO DAILY 02/25/17 [Last Taken Unknown] Multivit-Min/FA/Lycopen/Lutein [Centrum Silver Men Tablet] 1 ea PO DAILY 10/02/17 [Last Taken Unknown] Rivaroxaban [Xarelto] 20 mg PO DAILY 10/02/17 [Last Taken 06/09/18] Spironolactone [Aldactone] 50 mg PO DAILY 10/02/17 [Last Taken Unknown] L.acidoph,Paracasei, B.lactis [Probiotic] 1 ea PO DAILY 12/09/17 [Last Taken Unknown] dexamethasone 4 mg tablet 4 mg PO .COMPLEX 05/27/18 [Last Taken Unknown] - History of Present Illness Date (Duration): 07/06/18 Time (Timing): 16:30 Narrative: Patient was working in the garage sitting on his walker, he got up and when he tried to sit down again the walker moved and he sat down on the floor on his buttock. He denies hitting his head, no loss of consciousness, not able to get up due to pain in his left hip. Location Occurred: Reports: home Pain Location: Reports: lower extremity Method of Injury: Reports: fall Severity: moderate Modifying Factors - (Improves): Reports: rest Modifying Factors - (Worsens): Reports: movement Loss of Consciousness: Reports: no loss of consciousness, remembers the event, remembers coming to hospital Associated Symptoms - Trauma: Reports: denies symptoms. Denies: headache, slurred speech, chest pain, abdominal pain, nausea, vomiting Review of Systems - Review of Systems Constitutional: Absent: recent illness, fever ENT: Absent: nose congestion, sore throat Respiratory: Absent: shortness of breath Cardiology: Absent: chest pain Gastrointestinal/Abdominal: Absent: nausea, vomiting, abdominal pain Genitourinary: Present: no symptoms reported Musculoskeletal: Absent: back pain, neck pain Neurological: Absent: headache, weakness, numbness Medical History (Last Reviewed 07/06/18 @ 20:12 by Joy Mccabe MD) HTN (hypertension) (Acute) Onset Date: Unknown Hyperlipidemia (Chronic) Onset Date: Unknown GERD (gastroesophageal reflux disease) (Acute) Onset Date: Unknown CAD (coronary artery disease) (Acute) Onset Date: Unknown 10 stents placed Chest discomfort (Acute) Back pain (Acute) Pneumonia (Acute) Coronary artery disease (Chronic) Hypertension (Chronic) Acute on chronic renal failure (Acute) Dehydration (Acute) Degenerative disc disease, lumbar (Acute) Intractable low back pain (Acute) 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, multiple vessel (Chronic) Chest pain (Acute) Dehydration (Acute) Abdominal pain (Acute) Head injury (Acute) Skin tear of elbow without complication (Acute) Fall (Acute) Orthostatic hypotension (Acute) Contusion of hip, left (Acute) Shoulder pain, right (Acute) Right-sided nosebleed (Acute) Aortic regurgitation Onset Date: 12/23/12 Mild Atrial fibrillation Onset Date: Unknown COPD (chronic obstructive pulmonary disease) Onset Date: Unknown Cancer Onset Date: ~2010 Removed lump behind Rt ear DJD (degenerative joint disease) Onset Date: Unknown Degenerative joint disease of knee Onset Date: 11/02/12 Gastric ulcer Onset Date: 11/03/92 Hydrocele Onset Date: 04/23/98 Rt (spermatocele) Intraductal papillary mucinous neoplasm Onset Date: Unknown Loose body in knee Onset Date: 11/02/12 Not symptomatic Multiple myeloma Onset Date: ~09/25/16 Multiple myeloma Onset Date: 09/22/16 Myocardial infarction Onset Date: 09/18/16 PUD (peptic ulcer disease) Onset Date: Unknown Peripheral neuropathy Onset Date: Unknown Pneumonia Onset Date: 07/08/98 Pseudoaneurysm of right femoral artery Onset Date: Unknown Shoulder pain Onset Date: Unknown Spermatocele Onset Date: Unknown Spinal stenosis Onset Date: Unknown Stasis dermatitis of both legs Onset Date: 07/14/96 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 History of bone marrow biopsy Onset Date: 01/28/17 History of cancer surgery Onset Date: ~07/2010 Skin cancer removed behind Rt ear History of esophagogastroduodenoscopy (EGD) Onset Date: ~1994 1990, 1992, 1993, 1994 Hx of CABG Onset Date: 09/28/16 [place] [address] Rodriguez Hx of cardiac catheterization Onset Date: ~2011 2003, 2006, 2010, 2011 Hx of colonoscopy Onset Date: 06/13/182005. 06/13/18 [facility]-very capacious redundant colon. 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 Recheck 3 yrs. Hx of epidural steroid injection Onset Date: ~1996 1989, 1990, 1994, 1996 Lower epidural and cervical region Hx of shoulder surgery Onset Date: ~04/2010 Left shoulder labral repair with 2 opus suture anchors Stent Onset Date: ~2003May 2003, Jun 2003, Sept - 2 in LAD and 1 in diagnonal, 1 in circumflex, 3 in RCA, 2, 1 in main artery. Family History: Family History (Last Reviewed 07/06/18 @ 17:29 by Amrita Felton RN) Father , age 87-old age Heart disease Mother , age 63-unsure of cause Enlarged heart Sister , x2 Cancer Lung Hx of right mastectomy History of colon surgery COPD (chronic obstructive pulmonary disease) Brother Parkinson disease Dementia Sister Obesity Social History: Preferred Language [place] Do you have any nondenominational or No cultural preference? Smoking Status Former smoker Abuse History No History of abuse Psych History No pertinent hx Alcohol Use occasionally Drug Use none (Last Updated 05/27/18 @ 14:37 by Parrish Chávez MD) No Social History Section defined Detailed Trauma Exam Best Eye Response (Frank): (4) open spontaneously Best Verbal Response ([place]): (5) oriented Best Motor Response (Frank): (6) obeys commands [place] Total: 15 General Appearance: Present: alert, no acute distress. Absent: c-collar (PHARMACY TECHNOLOGIST), c-collar (in ED) Head Injury: Present: normal inspection, no tenderness on palpate. Absent: active bleeding, deformity, tenderness, Glass's Sign Neurological Exam: Present: alert, oriented x 4, no motor/sensory deficits Neck Exam: Present: non-tender, full range of motion, normal alignment Nexus Clearance: Present: Nexus criteria negative. Absent: distracting injury - not at rest Eye Exam: Normal inspection: bilateral, PERRL: bilateral Chest/Respiratory Exam: Present: nml inspection, chest non-tender, breath sounds nml Cardiovascular Exam: Present: regular rate, rhythm, no murmur, normal peripheral pulses Back Exam: Present: normal inspection, no CVA tenderness, no vertebral ten derness Abdominal Exam: Present: soft, non-tender, no distention, normal bowel sounds Skin Exam: Present: normal color, warm/dry, no cyanosis RU Extremity: Present: normal inspection, normal range of motion, non-tender, no edema RADHA Extremity: Present: normal inspection, other - left hip pain with minimal movement of leg RL Extremity: Present: normal inspection, normal range of motion, non-tender, no edema LL Extremity: Present: normal range of motion, non-tender, no edema, abrasion - over left elbow - C-Spine cleared by: Neg history & exam - T, L-Spine cleared by: Neg hx and exam - Long Board: Back visualized Progress - Results and Orders Patient's Lab Results:: I have reviewed the patient's lab results. - Vital Signs Patient's Vital Signs:: I have reviewed the patient's vital signs. Vital Signs: Vital Signs 07/06/18 17:24 Temperature 36.0 C Pulse Rate 77 Respiratory Rate 12 Blood Pressure 196/87 H O2 Sat by Pulse Oximetry 97 - EKG EKG #1 EKG: NSR EKG read: Interp. by me - X-Ray X-Ray #1 X-Ray: chest - chronic, no acute changes Interpretation: Interp. by me - Progress/Reassessment Progress Note-Subjective: 07/06/18 19:07 discussed broken hip and admission pain 1/10 at rest, severe with movement 07/06/18 19:25 discussed with alana Sanchez to admit to medical service 07/06/18 19:31 discussed with alana Balderrama to admit Departure Clinical Impression: Closed left hip fracture Qualifiers: Encounter type: initial encounter Qualified Code(s): S72.002A - Fracture of unspecified part of neck of left femur, initial encounter for closed fracture - Departure Disposition: Still a patient Condition: Stable Critical Care Time - Critical Care Critical Time Spent:: No
[2018-07-06 19:52] LABS: Hematocrit 34.8 % (42.0-52.0); Hemoglobin 11.1 gm/dL (13.5-18.0); Mean Cell Volume 82.7 fl (78-100); Mean Corpuscular Hemoglobin 26.4 pg (27-31); Mean Corpuscular Hgb Conc 31.9 g/dl (32-36); Mean Platelet Volume 9.8 fl (8-11.3); Neutrophil # 12.6 K/mm3 (1.3-6.0); Neutrophil % 89.4 % (42-75.0); Platelet Count 223 K/mm3 (150-450); Red Blood Count 4.21 M/mm3 (4.7-6.0); Red Cell Distribution Width 17.9 % (11.5-14.0); White Blood Count 14.1 K/mm3 (4.0-10.5)
[2018-07-06] MEDS ORDERED: HYDROcodone/ACETAMINOPHEN 1 EACH TABLET PO PRN (19:55)
[2018-07-06] MEDS ORDERED: MORPHINE SULFATE 4 MG/ML SYRG IV PRN (19:55)
[2018-07-06] MEDS ORDERED: ONDANSETRON HCL/PF 2 MG/ML VIAL IV PRN (19:55)
[2018-07-06 20:06] LABS: Albumin * 3.3 gm/dl (3.4-5.0); Anion Gap 14.3 mmol/L (6.8-13.8); BUN/Creatinine Ratio 18.9 (9.0-21.6); Bilirubin, Total 0.2 mg/dL (0.0-1.1); Ca. Corrected For Albumin 9.6 mg/dL (8.4-10.2); Calcium * 9.4 mg/dL (7.9-10.9); Carbon Dioxide 24.9 mmol/L (24-32.6); Potassium 5.2 mmol/L (3.4-4.6); Total Protein 6.8 gm/dL (6.2-8.2)
--- NOTE | 2018-07-06 20:34 | HP ---
Chief Complaint - Chief Complaint Date of Service: 07/06/18 Time of Service: 20:32 Chief Complaint: hip fracture History of Present Illness: Patient with past medical history of multiple myeloma, and multiple cardiac stents sustained a fractured left hip after ground-level fall. He was trying to sit in the walker slipped out from underneath him. He reports his pain is currently controlled as long as he is not moving. He is on Velcade cycle for his multiple myeloma, and is next due for his next infusion tomorrow. He also takes dexamethasone as part of his MM treatment. He also takes prophylactic fluconazole and acyclovir. He is prescribed Xarelto for what he describes as multiple blockages in his lower extremity veins. He takes at night, last dose yesterday evening. 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, multiple vessel (Chronic) Chest pain (Acute) Dehydration (Acute) Abdominal pain (Acute) Head injury (Acute) Skin tear of elbow without complication (Acute) Fall (Acute) Orthostatic hypotension (Acute) Contusion of hip, left (Acute) Shoulder pain, right (Acute) Right-sided nosebleed (Acute) Aortic regurgitation Onset Date: 12/23/12 Mild Atrial fibrillation Onset Date: Unknown COPD (chronic obstructive pulmonary disease) Onset Date: Unknown Cancer Onset Date: ~2010 Removed lump behind Rt ear DJD (degenerative joint disease) Onset Date: Unknown Degenerative joint disease of knee Onset Date: 11/02/12 Gastric ulcer Onset Date: 11/03/92 Hydrocele Onset Date: 04/23/98 Rt (spermatocele) Intraductal papillary mucinous neoplasm Onset Date: Unknown Loose body in knee Onset Date: 11/02/12 Not symptomatic Multiple myeloma Onset Date: ~09/25/16 Multiple myeloma Onset Date: 09/22/16 Myocardial infarction Onset Date: 09/18/16 PUD (peptic ulcer disease) Onset Date: Unknown Peripheral neuropathy Onset Date: Unknown Pneumonia Onset Date: 07/08/98 Pseudoaneurysm of right femoral artery Onset Date: Unknown Shoulder pain Onset Date: Unknown Spermatocele Onset Date: Unknown Spinal stenosis Onset Date: Unknown Stasis dermatitis of both legs Onset Date: 07/14/96 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 History of bone marrow biopsy Onset Date: 01/28/17 History of cancer surgery Onset Date: ~07/2010 Skin cancer removed behind Rt ear History of esophagogastroduodenoscopy (EGD) Onset Date: ~1994 1990, 1992, 1993, 1994 Hx of CABG Onset Date: 09/28/16 [facility] [address] Rodriguez Hx of cardiac catheterization Onset Date: ~2011 2003, 2006, 2010, 2011 Hx of colonoscopy Onset Date: 06/13/182005. 06/13/18 [place]-very capacious redundant colon. 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 Recheck 3 yrs. Hx of epidural steroid injection Onset Date: ~1996 1989, 1990, 1994, 1996 Lower epidural and cervical region Hx of shoulder surgery Onset Date: ~04/2010 Left shoulder labral repair with 2 opus suture anchors Stent Onset Date: ~2003May 2003, Jun 2003, Jan - 2 in LAD and 1 in diagnonal, 1 in circumflex, 3 in RCA, 2, 1 in main artery. Family History: Family History (Last Reviewed 07/06/18 @ 17:29 by Amrita Felton RN) Father , age 87-old age Heart disease Mother , age 63-unsure of cause Enlarged heart Sister , x2 Cancer Lung Hx of right mastectomy History of colon surgery COPD (chronic obstructive pulmonary disease) Brother Parkinson disease Dementia Sister Obesity Social History: Preferred Language Swedish Do you have any rastafari or No cultural preference? Smoking Status Former smoker Abuse History No History of abuse Psych History No pertinent hx Alcohol Use occasionally Drug Use none (Last Updated 05/27/18 @ 14:37 by Parrish Chávez MD) No Social History Section defined Review Of Systems (GEN) - Review of Systems Generalized/Overall Review: Absent: Fever Respiratory: Absent: Cough Cardiac: Absent: Chest Pain, Edema Abdominal: Absent: Vomiting Genitourinary: Absent: Dysuria Skin: Present: No Symptoms Reported Immunizations: IMMUNIZATION HX Immunizations Up to Date Yes History of Influenza Vaccine No Hx Pneumococcal Vaccination No Allergies/Adverse Reactions: Allergies Allergy/AdvReac Type Severity Reaction Status Date / Time Sulfa (Sulfonamide Allergy Intermediate Hives Verified 07/06/18 17:28 Antibiotics) atorvastatin calcium Allergy Muscle Pain Verified 07/06/18 17:28 [From Lipitor] Home Medications: HOME MEDICATIONS Nitroglycerin 0.4 mg SL PRN 07/22/15 [Last Taken Unknown] Acetaminophen [Tylenol] 500 mg PO QID PRN #30 tab 10/24/15 [Last Taken Unknown] Aspirin [Aspirin Enteric Coated] 81 mg PO DAILY 11/04/16 [Last Taken Unknown] Acyclovir [Zovirax] 400 mg PO BID 02/25/17 [Last Taken Unknown] Calcium 1,250 mg PO DAILY 02/25/17 [Last Taken Unknown] Cholecalciferol (Vitamin D3) [Vitamin D3] 5,000 unit PO DAILY 02/25/17 [Last Taken Unknown] Docusate Sodium [Doc-Q-Lace] 100 mg PO DAILY 02/25/17 [Last Taken Unknown] Fluconazole [Diflucan] 100 mg PO DAILY 02/25/17 [Last Taken Unknown] Omeprazole 20 mg PO DAILY 02/25/17 [Last Taken Unknown] Multivit-Min/FA/Lycopen/Lutein [Centrum Silver Men Tablet] 1 ea PO DAILY 10/02/17 [Last Taken Unknown] Rivaroxaban [Xarelto] 20 mg PO DAILY 10/02/17 [Last Taken 06/09/18] Spironolactone [Aldactone] 50 mg PO DAILY 10/02/17 [Last Taken Unknown] L.acidoph,Paracasei, B.lactis [Probiotic] 1 ea PO DAILY 12/09/17 [Last Taken Unknown] dexamethasone 4 mg tablet 4 mg PO .COMPLEX 05/27/18 [Last Taken Unknown] Bortezomib [Velcade] 3.5 mg IV .4X'S MONTHLY 07/06/18 [Last Taken Unknown] Exam - Exam Vital Signs: Vital Signs - Last Taken Temp 36.0 C 07/06/18 17:24 Pulse 85 07/06/18 19:02 Resp 22 H 07/06/18 19:02 BP 194/97 H 07/06/18 19:02 Pulse Ox 93 07/06/18 19:02 Constitutional: Present: Alert, Oriented x3, Cooperative Respiratory: Present: normal breath sounds, no respiratory distress Cardiovascular/Chest: Present: regular rate, rhythm Abdomen: Present: Normal bowel sounds, soft Extremity: Absent: lower extremity edema Diagnostic Studies: Abnormal Lab Results 07/06/18 07/06/18 Range/Units 19:44 19:44 WBC 14.1 H D (4.0-10.5) K/mm3 RBC 4.21 L (4.7-6.0) M/mm3 Hgb 11.1 L (13.5-18.0) gm/dL Hct 34.8 L (42.0-52.0) % MCH 26.4 L (27-31) pg MCHC 31.9 L (32-36) g/dl RDW 17.9 H (11.5-14.0) % Immature Gran % (Auto) 0.80 H (0.001-0.429) % Immature Gran # (Auto) 0.12 H (0.000-0.0310) K/mm3 Neutrophils % 89.4 H (42-75.0) % Lymphocytes % 3.2 L (20-51) % Neutrophils # 12.6 H (1.3-6.0) K/mm3 Lymphocytes # 0.45 L (1.5-3.5) k/mm3 Potassium 5.2 H (3.4-4.6) mmol/L Chloride 107 H (97-106) mmol/L Anion Gap 14.3 H (6.8-13.8) mmol/L BUN 34 H (6-23) mg/dL Creatinine 1.80 H (0.4-1.4) mg/dL Est GFR (Non-Af Amer) 39 L (60-130) mL/min Random Glucose 121 H (70-110) mg/dL Albumin 3.3 L (3.4-5.0) gm/dl Laboratory Results WBC 14.1 K/mm3 (4.0-10.5) H D 07/06/18 19:44 RBC 4.21 M/mm3 (4.7-6.0) L 07/06/18 19:44 Hgb 11.1 gm/dL (13.5-18.0) L 07/06/18 19:44 Hct 34.8 % (42.0-52.0) L 07/06/18 19:44 MCV 82.7 fl (78-100) 07/06/18 19:44 MCH 26.4 pg (27-31) L 07/06/18 19:44 MCHC 31.9 g/dl (32-36) L 07/06/18 19:44 RDW 17.9 % (11.5-14.0) H 07/06/18 19:44 Plt Count 223 K/mm3 (150-450) 07/06/18 19:44 MPV 9.8 fl (8-11.3) 07/06/18 19:44 Immature Gran % (Auto) 0.80 % (0.001-0.429) H 07/06/18 19:44 Immature Gran # (Auto) 0.12 K/mm3 (0.000-0.0310) H 07/06/18 19:44 Neutrophils % 89.4 % (42-75.0) H 07/06/18 19:44 Lymphocytes % 3.2 % (20-51) L 07/06/18 19:44 Monocytes % 6.5 % (0.0-9) 07/06/18 19:44 Eosinophils % 0.0 % (0.0-3.0) 07/06/18 19:44 Basophils % 0.1 % (0.0-1.0) 07/06/18 19:44 Nucleated RBC % 0.0 k/mm3 (0-1) 07/06/18 19:44 Neutrophils # 12.6 K/mm3 (1.3-6.0) H 07/06/18 19:44 Lymphocytes # 0.45 k/mm3 (1.5-3.5) L 07/06/18 19:44 Monocytes # 0.9 k/mm3 (0.0-1.0) 07/06/18 19:44 Eosinophils # 0.0 k/mm3 (0.0-0.7) 07/06/18 19:44 Absolute Basophils 0.0 k/mm3 (0.0-0.1) 07/06/18 19:44 Sodium 141 mmol/L (132-142) 07/06/18 19:44 Plasma Sodium 141 mmol/L (130-142) 07/06/18 19:44 Potassium 5.2 mmol/L (3.4-4.6) H 07/06/18 19:44 Chloride 107 mmol/L (97-106) H 07/06/18 19:44 Carbon Dioxide 24.9 mmol/L (24-32.6) 07/06/18 19:44 Anion Gap 14.3 mmol/L (6.8-13.8) H 07/06/18 19:44 BUN 34 mg/dL (6-23) H 07/06/18 19:44 Creatinine 1.80 mg/dL (0.4-1.4) H 07/06/18 19:44 Est GFR (Non-Af Amer) 39 mL/min (60-130) L 07/06/18 19:44 BUN/Creatinine Ratio 18.9 (9.0-21.6) 07/06/18 19:44 Random Glucose 121 mg/dL (70-110) H 07/06/18 19:44 Calcium 9.4 mg/dL (7.9-10.9) 07/06/18 19:44 Calcium Adj for Albumin 9.6 mg/dL (8.4-10.2) 07/06/18 19:44 Total Bilirubin 0.2 mg/dL (0.0-1.1) 07/06/18 19:44 AST 18 U/L (0-48) 07/06/18 19:44 ALT 19 U/L (19-67) 07/06/18 19:44 Alkaline Phosphatase 84 U/L (50-170) 07/06/18 19:44 Total Protein 6.8 gm/dL (6.2-8.2) 07/06/18 19:44 Albumin 3.3 gm/dl (3.4-5.0) L 02/13/19 19:44 Assessment/Plan - Assessment/Plan (1) Closed left hip fracture Assessment: His cardiac risk index score is 1, making him low risk. No acute findings on EKG. However, with his history of multiple cardiac stents, he does still have risk of cardiac event during surgery. He is aware of this and would like to proceed. Pain control with morphine. Holding his Xarelto. Problem: Acute Qualifiers: Encounter type: initial encounter Qualified Code(s): S72.002A - Fracture of unspecified part of neck of left femur, initial encounter for closed fracture (2) Multiple myeloma Assessment: He was due for his next Velcade infusion tomorrow. We will at the [place] know, and he would likely need to be rescheduled. Problem: Chronic (3) HTN (hypertension) Assessment: His blood pressure is elevated this evening, and will administer home medications. Problem: Chronic (4) Chronic renal failure Assessment: Creatinine of 1.8 today, which appears to be his baseline. Problem: Chronic (5) GERD (gastroesophageal reflux disease) Problem: Chronic
[2018-07-06] MEDS ORDERED: SPIRONOLACTONE 25 MG TABLET PO SCH (21:00)
[2018-07-06] MEDS ORDERED: ACETAMINOPHEN 500 MG TABLET PO PRN (21:46)
[2018-07-06] MEDS: ACYCLOVIR 200 MG CAPSULE PO SCH (22:31)
--- NOTE | 2018-07-07 08:34 | CONS ---
- Reason for consultation (1) Closed left hip fracture Date of Service: 07/07/18 HPI - General Date of Service: 07/07/18 Narrative: Patient presents after a fall at home yesterday. He was standing in his shop, went to grab his walker and fell backwards injuring his left hip. He states he has no other current symptoms. He states his pain is worse with movement, better with rest. He has no significant pain at rest. Source: patient - History of Present Illness Allergies/Adverse Reactions: Allergies Sulfa (Sulfonamide Antibiotics) Allergy (Intermediate, Verified 07/06/18 17:28) Hives atorvastatin calcium [From Lipitor] Allergy (Verified 07/06/18 17:28) Muscle Pain Home Medications: Home Medications Medication Instructions Recorded Last Taken Nitroglycerin 0.4 mg SL PRN 07/22/15 Unknown Acetaminophen [Tylenol] 500 mg PO QID PRN #30 tab 10/24/15 Unknown Aspirin [Aspirin Enteric Coated] 81 mg PO DAILY 11/04/16 Unknown Acyclovir [Zovirax] 400 mg PO BID 02/25/17 Unknown Calcium Carbonate/Vitamin D3 1 each PO BID 02/25/17 Unknown [Calcium 500-Vit D3 600 Tablet] Cholecalciferol (Vitamin D3) 5,000 unit PO DAILY 02/25/17 Unknown [Vitamin D3] Docusate Sodium [Doc-Q-Lace] 100 mg PO DAILY 02/25/17 Unknown Fluconazole [Diflucan] 100 mg PO DAILY 02/25/17 Unknown Omeprazole 20 mg PO DAILY 02/25/17 Unknown Multivit-Min/FA/Lycopen/Lutein 1 ea PO DAILY 10/02/17 Unknown [Centrum Silver Men Tablet] Rivaroxaban [Xarelto] 20 mg PO DAILY 10/02/17 06/09/18 Spironolactone [Aldactone] 50 mg PO DAILY 10/02/17 Unknown L.acidoph,Paracasei, B.lactis 1 ea PO DAILY 12/09/17 Unknown [Probiotic] dexamethasone 4 mg tablet 4 mg PO .COMPLEX 05/27/18 Unknown Bortezomib [Velcade] 3.5 mg IV .4X'S MONTHLY 07/06/18 Unknown Procedures Control Bleeding in Respiratory Tract, Via Natural or Artificial Opening (10/17/17) Medications - Medications Current Medications: Current Medications Hydrocodone Bitart/Acetaminophen ([place] 5-325) 1 each PO Q3H PRN PRN Reason: Moderate Pain (pain scale 4-6) Stop: 08/05/18 19:56 Last Admin: 07/06/18 22:26 Dose: 1 each Documented by: Acyclovir (Zovirax) 400 mg PO BID [facility] Stop: 08/05/18 22:31 Last Admin: 07/06/18 22:31 Dose: 400 mg Documented by: Morphine Sulfate (Morphine Sulfate) 2 mg IV Q15M PRN PRN Reason: Severe Pain (pain scale 7-10) Stop: 08/05/18 19:56 Last Admin: 07/06/18 20:33 Dose: 2 mg Documented by: Spironolactone (Aldactone) 50 mg PO DAILY [facility] Stop: 08/05/18 21:01 Last Admin: 07/06/18 22:25 Dose: Not Given Documented by: Physical Examination - Exam Vital Signs: Vital Signs - Last Taken Temp 36.9 C 07/07/18 06:39 Pulse 79 07/07/18 06:39 Resp 16 07/07/18 06:39 BP 166/81 H 07/07/18 06:39 Pulse Ox 95 07/07/18 06:39 O2 Oxygen Delivery Method Room Air Constitutional: Present: Alert, Cooperative, No distress Respiratory: Present: no respiratory distress Extremity: Present: other - LLE--> SILT, distal capillary refill brisk, 5/5 PF/DF, diffuse ttp over left hip, no obvious wounds Eye contact: Present: cooperative Thoughts: Present: normal thought pattern - Results and Findings: Lab/Microbiology results last 24 hrs: Abnormal/Pending Laboratory Last 24 HRS 07/06/18 07/06/18 19:44 19:44 WBC 14.1 H D RBC 4.21 L Hgb 11.1 L Hct 34.8 L MCH 26.4 L MCHC 31.9 L RDW 17.9 H Immature Gran % (Auto) 0.80 H Immature Gran # (Auto) 0.12 H Neutrophils % 89.4 H Lymphocytes % 3.2 L Neutrophils # 12.6 H Lymphocytes # 0.45 L Potassium 5.2 H Chloride 107 H Anion Gap 14.3 H BUN 34 H Creatinine 1.80 H Est GFR (Non-Af Amer) 39 L Random Glucose 121 H Albumin 3.3 L - Assessments/Findings (1) Closed left hip fracture Problem: Acute Qualifiers: Encounter type: initial encounter Qualified Code(s): S72.002A - Fracture of unspecified part of neck of left femur, initial encounter for closed fracture - Assessment (1) Closed left hip fracture Status: Acute Plan - Plan Plan: - 82 y/o male s/p fall with left hip intertrochanteric femur fracture - Discussed conservative vs. surgical intervention including risk vs. benefits of each and all treatment options. Patient wishes to proceed with surgical intervention of closed reduction with cephalomedullary nailing of left in tertrochanteric femur fracture. Consent was obtained, patient will undergo surgery on 07/07/[address] Irving. All patients questions were answered. He will return to the floor post-op for care.
[2018-07-07] MEDS ORDERED: DEXTROSE 5%-0.5 NORMAL SALINE 1,000 ML IV PRN (08:53)
--- NOTE | 2018-07-07 08:57 | PN ---
Subjective - Date and Time Seen Date: 07/07/18 Time: 08:54 Subjective Narrative: Afebrile. hip pain is tolerable. Objective - Review of Systems Generalized/Overall Review: Denies: Chills, Fever EENTM: Denies: Blurred Vision Respiratory: Denies: Shortness of Breath Cardiac: Denies: Chest Pain, Edema, Palpitations Abdominal: Denies: Nausea, Vomiting Genitourinary Symptoms: Denies: Urgency, Frequency Musculoskeletal Complaints: Reports: Joint Pain Neurological: Denies: Anxiety, Depressed Skin: Denies: Rash, Bruising Endocrine: Denies: Intolerance to Cold, Intolerance to Heat - Vitals Vitals: Last Vital Signs Temp 36.9 C 07/07/18 06:39 Pulse 79 07/07/18 06:39 Resp 16 07/07/18 06:39 BP 166/81 H 07/07/18 06:39 Pulse Ox 95 07/07/18 06:39 - Abnormal Lab Findings Abnormal Lab Findings: Abnormal Lab Results 07/06/18 07/06/18 Range/Units 19:44 19:44 WBC 14.1 H D (4.0-10.5) K/mm3 RBC 4.21 L (4.7-6.0) M/mm3 Hgb 11.1 L (13.5-18.0) gm/dL Hct 34.8 L (42.0-52.0) % MCH 26.4 L (27-31) pg MCHC 31.9 L (32-36) g/dl RDW 17.9 H (11.5-14.0) % Immature Gran % (Auto) 0.80 H (0.001-0.429) % Immature Gran # (Auto) 0.12 H (0.000-0.0310) K/mm3 Neutrophils % 89.4 H (42-75.0) % Lymphocytes % 3.2 L (20-51) % Neutrophils # 12.6 H (1.3-6.0) K/mm3 Lymphocytes # 0.45 L (1.5-3.5) k/mm3 Potassium 5.2 H (3.4-4.6) mmol/L Chloride 107 H (97-106) mmol/L Anion Gap 14.3 H (6.8-13.8) mmol/L BUN 34 H (6-23) mg/dL Creatinine 1.80 H (0.4-1.4) mg/dL Est GFR (Non-Af Amer) 39 L (60-130) mL/min Random Glucose 121 H (70-110) mg/dL Albumin 3.3 L (3.4-5.0) gm/dl - Exam Constitutional: Present: Alert, Oriented x3, Cooperative, Elderly ENT Exam: Present: hearing grossly normal Neck: Present: supple Respiratory: Present: normal breath sounds, No rales, No wheezing Cardiovascular/Chest: Present: regular rate, rhythm, no JVD, no murmur Abdomen: Present: Normal bowel sounds, soft, nontender, nondistended Extremity: Present: no pedal edema, no calf tenderness Cauti Physician Documentation - Urinary Catheter Management Urethral (Phillip) Date of Insertion: 07/07/18 Time of Insertion: 12:44 Assessment/Plan Plan Narrative: Will continue home medications postop. - Problems/Diagnosis (1) Closed left hip fracture Problem: Acute Qualifiers: Encounter type: initial encounter Qualified Code(s): S72.002A - Fracture of unspecified part of neck of left femur, initial encounter for closed fracture Narrative: for CRIF today. will have PT/OT and DVt prophylaxis post op. (2) Chronic renal failure Problem: Chronic Qualifiers: Chronic kidney disease stage: stage 3 (moderate) Qualified Code(s): N18.3 - Chronic kidney disease, stage 3 (moderate) (3) Multiple myeloma Problem: Chronic (4) CAD (coronary artery disease) Problem: Chronic Qualifiers: Coronary Disease-Associated Artery/Lesion type: bypass graft [place] vs. transplanted heart: [place] heart Associated angina: without angina Qualified Code(s): I25.810 - Atherosclerosis of coronary artery bypass graft(s) without angina pectoris (5) HTN (hypertension) Problem: Chronic (6) Hyperlipidemia Problem: Chronic Qualifiers: Hyperlipidemia type: mixed hyperlipidemia Qualified Code(s): E78.2 - Mixed hyperlipidemia
[2018-07-07] MEDS: ACYCLOVIR 200 MG CAPSULE PO SCH ×2 (09:09→21:04)
[2018-07-07] MEDS: PANTOPRAZOLE SODIUM 20 MG TABLET.DR PO SCH (09:09)
[2018-07-07] MEDS ORDERED: ceFAZolin SODIUM/DEXTROSE,ISO 2 GM/50 ML BAG IV ONE (10:27)
[2018-07-07] MEDS ORDERED: ceFAZolin SODIUM 1 GM VIAL IV PRN (10:35)
--- NOTE | 2018-07-07 11:34 | ANES ---
Anesthesia Pre Procedure Eval Vitals/Labs: Last Vital Signs Temp 36.8 C 07/07/18 11:12 Pulse 71 07/07/18 11:12 Resp 18 07/07/18 11:12 BP 160/80 H 07/07/18 11:12 Pulse Ox 93 07/07/18 11:12 HOME MEDICATIONS Nitroglycerin 0.4 mg SL PRN 07/22/15 [Last Taken Unknown] Acetaminophen [Tylenol] 500 mg PO QID PRN #30 tab 10/24/15 [Last Taken Unknown] Aspirin [Aspirin Enteric Coated] 81 mg PO DAILY 11/04/16 [Last Taken Unknown] Acyclovir [Zovirax] 400 mg PO BID 02/25/17 [Last Taken Unknown] Calcium Carbonate/Vitamin D3 [Calcium 500-Vit D3 600 Tablet] 1 each PO BID 02/25/17 [Last Taken Unknown] Cholecalciferol (Vitamin D3) [Vitamin D3] 5,000 unit PO DAILY 02/25/17 [Last Taken Unknown] Docusate Sodium [Doc-Q-Lace] 100 mg PO DAILY 02/25/17 [Last Taken Unknown] Fluconazole [Diflucan] 100 mg PO DAILY 02/25/17 [Last Taken Unknown] Omeprazole 20 mg PO DAILY 02/25/17 [Last Taken Unknown] Multivit-Min/FA/Lycopen/Lutein [Centrum Silver Men Tablet] 1 ea PO DAILY 10/02/17 [Last Taken Unknown] Rivaroxaban [Xarelto] 20 mg PO DAILY 10/02/17 [Last Taken 06/09/18] Spironolactone [Aldactone] 50 mg PO DAILY 10/02/17 [Last Taken Unknown] L.acidoph,Paracasei, B.lactis [Probiotic] 1 ea PO DAILY 12/09/17 [Last Taken Unknown] dexamethasone 4 mg tablet 4 mg PO .COMPLEX 05/27/18 [Last Taken Unknown] Bortezomib [Velcade] 3.5 mg IV .4X'S MONTHLY 07/06/18 [Last Taken Unknown] Allergies/Adverse Reactions: Allergies Allergy/AdvReac Type Severity Reaction Status Date / Time Sulfa (Sulfonamide Allergy Intermediate Hives Verified 07/06/18 17:28 Antibiotics) atorvastatin calcium Allergy Muscle Pain Verified 07/06/18 17:28 [From Lipitor] - Planned Procedure Planned Procedure: L HIP FRACTURE Medication List Reviewed:: Yes Allergies Verified: Yes Medical History (Last Reviewed 07/07/18 @ 11:31 by Aries Pandey CRNA) HTN (hypertension) (Chronic) Onset Date: Unknown Hyperlipidemia (Chronic) Onset Date: Unknown GERD (gastroesophageal reflux disease) (Chronic) Onset Date: Unknown CAD (coronary artery disease) (Chronic) Onset Date: Unknown 10 stents placed Chest discomfort (Acute) Back pain (Acute) Pneumonia (Acute) Coronary artery disease (Chronic) Hypertension (Chronic) Acute on chronic renal failure (Acute) Dehydration (Acute) Degenerative disc disease, lumbar (Acute) Intractable low back pain (Acute) 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, multiple vessel (Chronic) Chest pain (Acute) Dehydration (Acute) Abdominal pain (Acute) Head injury (Acute) Skin tear of elbow without complication (Acute) Fall (Acute) Orthostatic hypotension (Acute) Contusion of hip, left (Acute) Shoulder pain, right (Acute) Right-sided nosebleed (Acute) Aortic regurgitation Onset Date: 12/23/12 Mild Atrial fibrillation Onset Date: Unknown COPD (chronic obstructive pulmonary disease) Onset Date: Unknown Cancer Onset Date: ~2010 Removed lump behind Rt ear DJD (degenerative joint disease) Onset Date: Unknown Degenerative joint disease of knee Onset Date: 11/02/12 Gastric ulcer Onset Date: 11/03/92 Hydrocele Onset Date: 04/23/98 Rt (spermatocele) Intraductal papillary mucinous neoplasm Onset Date: Unknown Loose body in knee Onset Date: 11/02/12 Not symptomatic Multiple myeloma Onset Date: ~09/25/16 Multiple myeloma Onset Date: 09/22/16 Myocardial infarction Onset Date: 09/18/16 PUD (peptic ulcer disease) Onset Date: Unknown Peripheral neuropathy Onset Date: Unknown Pneumonia Onset Date: 07/08/98 Pseudoaneurysm of right femoral artery Onset Date: Unknown Shoulder pain Onset Date: Unknown Spermatocele Onset Date: Unknown Spinal stenosis Onset Date: Unknown Stasis dermatitis of both legs Onset Date: 07/14/96 Steroid myopathy Onset Date: Unknown Tracheal mass Onset Date: Unknown Arthritis Onset Date: Unknown Chronic renal failure Onset Date: Unknown Surgical History (Last Reviewed 07/07/18 @ 11:31 by Aries Pandey CRNA) S/P CABG x 3 (Acute) Hx of heart artery stent 9 stents Hx of tonsillectomy Onset Date: ~194 hx dog bite--surgery to clean Onset Date: Unknown Breast cyst removal Onset Date: ~1957 Lt breast History of back surgery Onset Date: ~01/2015 Jayme L1, L2, L3 Kasi-laminectomy and jayme L1, L2, L3-4 partial facetectomy. History of bone marrow biopsy Onset Date: 01/28/17 History of cancer surgery Onset Date: ~07/2010 Skin cancer removed behind Rt ear History of esophagogastroduodenoscopy (EGD) Onset Date: ~1994 1990, 1992, 1993, 1994 Hx of CABG Onset Date: 09/28/16 [facility] [address] Rodriguez Hx of cardiac catheterization Onset Date: ~2011 2003, 2006, 2010, 2011 Hx of colonoscopy Onset Date: 06/13/182005. 06/13/18 Bagan-very capacious redundant colon. 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 Recheck 3 yrs. Hx of epidural steroid injection Onset Date: ~1996 1989, 1990, 1994, 1996 Lower epidural and cervical region Hx of shoulder surgery Onset Date: ~04/2010 Left shoulder labral repair with 2 opus suture anchors Stent Onset Date: ~2003May 2003, Jun 2003, Jan - 2 in LAD and 1 in diagnonal, 1 in circumflex, 3 in RCA, 2, 1 in main artery. Family History (Last Reviewed 07/07/18 @ 11:31 by Aries Pandey CRNA) Father , age 87-old age Heart disease Mother , age 63-unsure of cause Enlarged heart Sister , x2 Cancer Lung Hx of right mastectomy History of colon surgery COPD (chronic obstructive pulmonary disease) Brother Parkinson disease Dementia Sister Obesity - Family Anesthesia History Family History:: no untoward family reactions to anesthesia, no familial bleeding tendencies, no family history of clotting disorders, no family history of premature - Airway/Neck/Teeth Within Normal Limits:: Yes Teeth Condition: intact Neck Exam: full range of motion Mallampatti Score: 2 Thyromental (T-M) distance: > 6 cm Mandibulo Hyoid distance: > 3 cm - Respiratory Respiratory Physical: lungs clear Smoking Status: Former smoker Discussed smoking cessation including day of surgery: No Sleep Apnea currently treated: No Sleep Apnea by current assessment: No Discussed Risks/Treatment of [place]: No - Cardiovascular Tolerate Activity: Fair Heart Sounds: S1 & S2, Regular - Anesthesia Assessment and Plan ASA Class: PS, III Anesthesia Type Plan: General LMA Planned difficult intubation/equipment available: No
[2018-07-07] MEDS ORDERED: RINGER'S SOLUTION,LACTATED 1,000 ML IV PRN (13:20)
[2018-07-07] MEDS ORDERED: MAG HYDROX/ALUMINUM HYD/SIMETH 30 ML UDC PO PRN (13:33)
[2018-07-07] MEDS ORDERED: MAGNESIUM HYDROXIDE 30 ML UDC PO PRN (13:33)
[2018-07-07] MEDS ORDERED: NORMAL SALINE 1,000 ML IV PRN (13:36)
--- NOTE | 2018-07-07 13:38 | OR ---
Operative Report - Dictated Report Narrative: Date: 07/07/2018 Surgeon: Willi Irving M.D. Paper Tube Grader: Jacinto Monroe PA-C Preoperative diagnosis: Left intertrochanteric femur fracture Postoperative diagnosis: Left intertrochanteric femur fracture Operations and procedures: 1. Closed reduction, cephalo-medullary fixation left intertrochanteric femur fracture 2. Intraoperative interpretation of radiographs Anesthesia: Spinal Specimens: None Estimated blood loss: 200 Milliliters Retained implants: [employer] Trigen InterTAN 130 degree size 11.5 mm by 20 centimeter nail with 115 millimeter lag screw and 110 millimeter compression screw, with distal locking screw Complications: None Indications for procedure: Carson who injured the left leg after slipping and falling backwards in his shop. They were admitted to the hospital after being evaluated in the emergency department. Once the medical provider felt that they were stable for surgical treatment, the risks and benefits alternatives were discussed. The risks of , blood clots, bleeding, infection, nerve/tendon/blood vessel injury, malunion, nonunion, failure of implants, painful implants, arthrosis, and need for additional procedures were discussed. The extremity was marked and consent was obtained on the floor. Procedure: After marking the operative extremity on the floor, the patient was taken to the operating room. A timeout was performed. IV antibiotics consisting of 2 g of Ancef were administered. A spinal anesthetic was induced by anesthesia, and the patient was then placed onto a fracture table with a well-padded perineal post. The non-operative leg was placed in a well-padded well leg gallagher in lithotomy position with an SCD on the leg. The operative leg was placed in a well-padded traction boot. Longitudinal traction, internal rotation, flexion, and adduction were utilized in order to reduce the fracture. Preliminary images were attained utilizing C-arm in both the AP and lateral views. This confirmed that we had obtained adequate visualization of the fracture as well as reduction. Next the hip was then prepped and draped in a standard sterile fashion. Next, the guidewire was placed percutaneously proximal to the greater trochanter to moise a starting point at the tip of the greater trochanter centered on the lateral view. This was advanced down to the level below the lesser trochanter. A scalpel was utilized to dissect down to the greater trochanter in order to lace the soft tissue protector down to bone. The entry reamer was then advanced down the proximal femur to the level of the lesser trochanter. The above nail was then selected and impacted into place. The outrigger was utilized in order to confirm the appropriate depth of the nail. Using the alignment device on the outrigger, a laurie incision was made over the lateral femur. Sharp dissection was carried through the iliotibial band down to the proximal femur. The guidewire was was placed into the femoral head in a center center position on AP and lateral views. A tip apex distance less than 25 mm combined was obtained. Once we felt that we had placed the guidewire in the appropriate position, it was measured. Next the compression screw entry drill was advanced through the lateral cortex. This was then drilled down to the appropriate depth for the compression screw, again confirming that we are within the confines the bone. The derotational bar was then placed and the lag screw was drilled to the appropriate depth. The lag screw was then secured in place ensuring that we were within the confines of the bone. The compression screw was then inserted allowing for compression while releasing the traction on the leg. Using C-arm this was visualized to allow for compression across the fracture site. Once it was felt we had adequately stabilized the intertrochanteric fracture, the distal in terlocking screw was placed in a static position confirmed to be the appropriate length and within the nail on both AP and lateral views. The nail was secured allowing for controlled compression and the outrigger was removed. The wounds were then thoroughly irrigated. Final images were obtained. The hip was placed through range of motion and showed no crepitance. The deep fascia was closed wi th 0 Vicryl, the subcutaneous tissue with 3-0 Vicryl, and the skin was closed with giorgio. Sterile dressings of Xeroform, 4 x 4s, and tegaderm were applied. All sponge, sharp, and instrument counts were correct prior to closing the wounds. The patient was then awoken and transferred to the postanesthesia care unit in stable condition.
--- NOTE | 2018-07-07 14:00 | ANES ---
Post Anesthesia Discharge - Transfer of Care Transfer of Care handoff given to nurse: Yes - Discharge from PACU Discharge from PACU when meets criteria: Yes - Discharge to ASU Discharge to ASU-no complications/pt stable: Yes
--- NOTE | 2018-07-07 14:03 | ANES ---
Post Anesthesia Assessment - Vital Signs Vitals: Last Vital Signs Temp 36.6 C 07/07/18 13:45 Pulse 72 07/07/18 14:00 Resp 19 07/07/18 14:00 BP 158/71 H 07/07/18 14:00 Pulse Ox 96 07/07/18 14:00 Airway Patency: Normal - Mental Status Level Of Consciousness: Awake - Pain Level Pain Score: 0 - N/V Assessment Nausea/Vomiting Presence: None Dehydration:: No
[2018-07-07] MEDS: MORPHINE SULFATE 2 MG/ML DISP.SYRIN IV PRN ×2 (14:26→17:58)
[2018-07-07] MEDS: HYDROcodone/ACETAMINOPHEN 1 EACH TABLET PO PRN ×2 (15:23→19:32)
[2018-07-07] MEDS: ceFAZolin SODIUM 2 GM in DEXTROSE 5 % IN WATER 50 ML IV SCH ×2 (18:07)
[2018-07-07] MEDS: SENNOSIDES/DOCUSATE SODIUM 1 TAB TABLET PO SCH (21:06)
[2018-07-07] MEDS: DOCUSATE SODIUM 100 MG CAPSULE PO SCH (21:07)
[2018-07-07] MEDS: FLUCONAZOLE 100 MG TABLET PO SCH (21:07)
[2018-07-08] MEDS: ceFAZolin SODIUM 2 GM in DEXTROSE 5 % IN WATER 50 ML IV SCH ×4 (02:23→10:06)
[2018-07-08] MEDS: HYDROcodone/ACETAMINOPHEN 1 EACH TABLET PO PRN ×4 (02:32→19:20)
[2018-07-08 05:47] LABS: Hematocrit 27.5 % (42.0-52.0); Hemoglobin 8.5 gm/dL (13.5-18.0); Mean Cell Volume 82.8 fl (78-100); Mean Corpuscular Hemoglobin 25.6 pg (27-31); Mean Corpuscular Hgb Conc 30.9 g/dl (32-36); Mean Platelet Volume 10.6 fl (8-11.3); Platelet Count 163 K/mm3 (150-450); Red Blood Count 3.32 M/mm3 (4.7-6.0); Red Cell Distribution Width 17.8 % (11.5-14.0); White Blood Count 7.5 K/mm3 (4.0-10.5)
[2018-07-08 05:53] LABS: Anion Gap 11.8 mmol/L (6.8-13.8); BUN/Creatinine Ratio 17.7 (9.0-21.6); Calcium * 8.2 mg/dL (7.9-10.9); Carbon Dioxide 25.7 mmol/L (24-32.6); Estimated Creat Clear 35.7; Potassium 4.5 mmol/L (3.4-4.6)
[2018-07-08] MEDS: PANTOPRAZOLE SODIUM 20 MG TABLET.DR PO SCH (06:42)
[2018-07-08] MEDS ORDERED: NITROGLYCERIN 0.4 MG/TAB BTL SL PRN (07:15)
--- NOTE | 2018-07-08 08:48 | PN ---
Subjective - Date and Time Seen Date: 07/08/18 Time: 08:43 Subjective Narrative: Patient reports no acute events. He has minimal pain at rest, moderate pain with standing. He states he was able to tolerate PO diet. Per nursing were attempting to transition patient from bed to chair, after sitting at bed side upon trying to stand patient had a fainting episode, he is unaware of this episode upon questioning. Objective - Vitals Vitals: Last Vital Signs Temp 36.9 C 07/08/18 06:40 Pulse 82 07/08/18 06:40 Resp 16 07/08/18 06:40 BP 118/61 07/08/18 06:40 Pulse Ox 93 07/08/18 06:40 - Abnormal Lab Findings Abnormal Lab Findings: Abnormal Lab Results 07/08/18 07/08/18 Range/Units 05:15 05:15 RBC 3.32 L (4.7-6.0) M/mm3 Hgb 8.5 L (13.5-18.0) gm/dL Hct 27.5 L (42.0-52.0) % MCH 25.6 L (27-31) pg MCHC 30.9 L (32-36) g/dl RDW 17.8 H (11.5-14.0) % BUN 34 H (6-23) mg/dL Creatinine 1.92 H (0.4-1.4) mg/dL Est GFR (Non-Af Amer) 36 L (60-130) mL/min Random Glucose 130 H (70-110) mg/dL - Exam Constitutional: Present: Alert, Cooperative, No distress Extremity: Present: other - LLE--> sensation intact light touch, distal capillary refill brisk, 5/5 plantar flexion dorsiflexion of the foot, bandages c lean dry and intact, diffuse mild tenderness about left hip Eye contact: Present: cooperative Thoughts: Present: normal thought pattern Cauti Physician Documentation - Urinary Catheter Management Urethral (Phillip) Date of Insertion: 07/07/18 Time of Insertion: 12:44 Assessment/Plan Plan Narrative: - 82 male post-op day #1 s/p left closed reduction with cephalomedullary nailing of intertrochanteric femur fracture -Weightbearing as tolerated, assistance as needed, patient previously used a walker daily -PT/OT progress as tolerated -P.o. diet as tolerated -P.o. pain medication as needed -DVT prophylaxis: Can restart Xarelto, SCDs in bed, HEATHER paz -Hemoglobin 8.6, continue to monitor -Patient had an episode of fainting, refer to medicine for further workup versus continued observation -Chronic medical conditions per medicine team -Dispo: Once all PT goals met and patient is stable medically, discharged to [facility] facility for further PT/OT - Problems/Diagnosis (1) Closed left hip fracture Problem: Acute Qualifiers: Encounter type: initial encounter Qualified Code(s): S72.002A - Fracture of unspecified part of neck of left femur, initial encounter for closed fracture
--- NOTE | 2018-07-08 08:57 | PN ---
Subjective - Date and Time Seen Date: 07/08/18 Time: 08:51 Subjective Narrative: Patient has a syncopal attack per nurse when she stood him up this monring. As per patient , he did not pass out as he can hear everything. He felt the pain on his operative site ran up his entire leg when he put his weight on it as he stood up. Objective - Review of Systems Generalized/Overall Review: Denies: Weakness, Chills, Fever EENTM: Denies: Blurred Vision Respiratory: Denies: Cough, Shortness of Breath Cardiac: Denies: Chest Pain, Edema, Palpitations Abdominal: Denies: Nausea, Vomiting Genitourinary Symptoms: Denies: Urgency, Frequency Musculoskeletal Complaints: Reports: Joint Pain Neurological: Denies: Headache Skin: Denies: Rash, Bruising Endocrine: Denies: Intolerance to Cold, Intolerance to Heat - Vitals Vitals: Last Vital Signs Temp 36.9 C 07/08/18 06:40 Pulse 82 07/08/18 06:40 Resp 16 07/08/18 06:40 BP 118/61 07/08/18 06:40 Pulse Ox 93 07/08/18 06:40 - Abnormal Lab Findings Abnormal Lab Findings: Abnormal Lab Results 07/08/18 07/08/18 Range/Units 05:15 05:15 RBC 3.32 L (4.7-6.0) M/mm3 Hgb 8.5 L (13.5-18.0) gm/dL Hct 27.5 L (42.0-52.0) % MCH 25.6 L (27-31) pg MCHC 30.9 L (32-36) g/dl RDW 17.8 H (11.5-14.0) % BUN 34 H (6-23) mg/dL Creatinine 1.92 H (0.4-1.4) mg/dL Est GFR (Non-Af Amer) 36 L (60-130) mL/min Random Glucose 130 H (70-110) mg/dL - Exam Constitutional: Present: Alert, Cooperative ENT Exam: Present: hearing grossly normal Neck: Present: supple Respiratory: Present: normal breath sounds, No rales, No wheezing Cardiovascular/Chest: Present: regular rate, rhythm, no JVD, no murmur Abdomen: Present: Normal bowel sounds, soft, nontender, nondistended Extremity: Present: no calf tenderness, pedal edema Neurologic: Present: customer success director II-XII nml as tested, no motor/sensory deficits, oriented x 3 Cauti Physician Documentation - Urinary Catheter Management Urethral (Phillip) Date of Insertion: 07/07/18 Time of Insertion: 12:44 Assessment/Plan - Problems/Diagnosis (1) Syncope Problem: Acute Qualifiers: Syncope type: vasovagal syncope Qualified Code(s): R55 - Syncope and collapse Narrative: vs. presyncope- likely due to vasovagal response from painful/noxious stimulus r/o orthostasis. continue with pain control . continue with IVF for now. will get orthostatic VS. will get EKG. ADDENDUM: EKG showed NSR. (2) Closed left hip fracture Problem: Acute Qualifiers: Encounter type: initial encounter Qualified Code(s): S72.002A - Fracture of unspecified part of neck of left femur, initial encounter for closed fracture Narrative: S/p CRIF with cephalomedullary nail fixation. contnue with PT/OT. will restart his Xarelto and ASA. (3) Acute blood loss anemia Problem: Acute Narrative: acute on chronic. will monitor. will start Fe SO4 325 mg PO QD. (4) Chronic renal failure Problem: Chronic Qualifiers: Chronic kidney disease stage: stage 3 (moderate) Qualified Code(s): N18.3 - Chronic kidney disease, stage 3 (moderate) (5) Multiple myeloma Problem: Chronic Narrative: oncology nurse discussed with oncology HC- hold velcaide/dexamathasone/aredia.continue with Diflucan and Acyclovir. (6) CAD (coronary artery disease) Problem: Chronic Qualifiers: Coronary Disease-Associated Artery/Lesion type: bypass graft [place] vs. transplanted heart: [place] heart Associated angina: without angina Qualified Code(s): I25.810 - Atherosclerosis of coronary artery bypass graft(s) without angina pectoris (7) HTN (hypertension) Problem: Chronic Qualifiers: Hypertension type: essential hypertension Qualified Code(s): I10 - Essential (primary) hypertension (8) Hyperlipidemia Problem: Chronic Qualifiers: Hyperlipidemia type: mixed hyperlipidemia Qualified Code(s): E78.2 - Mixed hyperlipidemia
[2018-07-08] MEDS ORDERED: DEXAMETHASONE 4 MG TABLET PO SCH (09:00)
[2018-07-08] MEDS ORDERED: NORMAL SALINE 1,000 ML IV PRN (09:03)
[2018-07-08] MEDS: MULTIVIT-MIN/FA/LYCOPEN/LUTEIN 1 TAB TABLET PO SCH (09:17)
[2018-07-08] MEDS: CHOLECALCIFEROL 5,000 UNIT TABLET PO SCH (09:17)
[2018-07-08] MEDS: CALCIUM CARBONATE/VITAMIN D3 1 TAB TABLET PO SCH ×2 (09:17→20:26)
[2018-07-08] MEDS: ACYCLOVIR 200 MG CAPSULE PO SCH ×2 (09:18→20:27)
[2018-07-08] MEDS: DOCUSATE SODIUM 100 MG CAPSULE PO SCH (09:18)
[2018-07-08] MEDS: FLUCONAZOLE 100 MG TABLET PO SCH (09:18)
[2018-07-08] MEDS: ASPIRIN 81 MG TABLET.DR PO SCH (10:01)
[2018-07-08] MEDS: RIVAROXABAN 20 MG TABLET PO SCH (10:02)
[2018-07-08] MEDS: LACTOBACILLUS ACIDOPHILUS 100 CAP BTL PO SCH (10:03)
[2018-07-08] MEDS: SENNOSIDES/DOCUSATE SODIUM 1 TAB TABLET PO SCH (20:26)
[2018-07-09 06:15] LABS: Hematocrit 24.2 % (42.0-52.0); Mean Cell Volume 81.2 fl (78-100); Mean Corpuscular Hemoglobin 25.8 pg (27-31); Mean Corpuscular Hgb Conc 31.8 g/dl (32-36); Platelet Count 141 K/mm3 (150-450); Red Blood Count 2.98 M/mm3 (4.7-6.0); Red Cell Distribution Width 17.5 % (11.5-14.0); White Blood Count 8.8 K/mm3 (4.0-10.5)
[2018-07-09 06:24] LABS: Anion Gap 13.1 mmol/L (6.8-13.8); BUN/Creatinine Ratio 21.4 (9.0-21.6); Calcium * 8.4 mg/dL (7.9-10.9); Carbon Dioxide 24.8 mmol/L (24-32.6); Estimated Creat Clear 37.7; Potassium 4.9 mmol/L (3.4-4.6)
[2018-07-09 06:28] LABS: Hemoglobin 7.7 gm/dL (13.5-18.0)
[2018-07-09] MEDS: PANTOPRAZOLE SODIUM 20 MG TABLET.DR PO SCH (07:05)
[2018-07-09] MEDS: HYDROcodone/ACETAMINOPHEN 1 EACH TABLET PO PRN ×4 (07:05→20:44)
[2018-07-09] MEDS: ASPIRIN 81 MG TABLET.DR PO SCH (08:33)
[2018-07-09] MEDS: LACTOBACILLUS ACIDOPHILUS 100 CAP BTL PO SCH (08:34)
[2018-07-09] MEDS: CALCIUM CARBONATE/VITAMIN D3 1 TAB TABLET PO SCH ×2 (08:34→20:06)
[2018-07-09] MEDS: ACYCLOVIR 200 MG CAPSULE PO SCH ×2 (08:34→20:06)
[2018-07-09] MEDS: DOCUSATE SODIUM 100 MG CAPSULE PO SCH (08:34)
[2018-07-09] MEDS: RIVAROXABAN 20 MG TABLET PO SCH (08:34)
[2018-07-09] MEDS: FLUCONAZOLE 100 MG TABLET PO SCH (08:34)
[2018-07-09] MEDS: MULTIVIT-MIN/FA/LYCOPEN/LUTEIN 1 TAB TABLET PO SCH (08:34)
[2018-07-09] MEDS: CHOLECALCIFEROL 5,000 UNIT TABLET PO SCH (08:34)
[2018-07-09] MEDS: FERROUS SULFATE 325 MG TABLET PO SCH (08:39)
--- NOTE | 2018-07-09 10:20 | PN ---
Subjective - Date and Time Seen Date: 07/09/18 Time: 10:04 Subjective Narrative: Patient did well overnight. Blood pressures stabilized after being on fluid for last 12 hours. No recurrent syncopal episodes, states he feels much better. Pain well controlled with scheduled medication. Significant improvement with physical therapy since his operation, able to transfer with minimal assistance and minimal pain. Vital signs stable other than slightly elevated blood pressure over the last 12 hours, likely due to pain. Patient in good spirits today, states he feels well Objective - Review of Systems Generalized/Overall Review: Reports: Fatigue. Denies: Chills, Fever EENTM: Reports: No Symptoms Reported Respiratory: Denies: Cough, Shortness of Breath Cardiac: Reports: No Symptoms Reported Abdominal: Reports: No Symptoms Reported Genitourinary Symptoms: Reports: No Symptoms Reported Musculoskeletal Complaints: Reports: Joint Pain, Muscle Pain Neurological: Denies: Numbness, Weakness Skin: Reports: No Symptoms Reported Endocrine: Reports: No Symptoms Reported - Vitals Vitals: Last Vital Signs Temp 36.9 C 07/09/18 09:00 Pulse 94 07/09/18 09:00 Resp 20 07/09/18 09:00 BP 164/72 H 07/09/18 09:00 Pulse Ox 94 07/09/18 09:00 - Abnormal Lab Findings Abnormal Lab Findings: Abnormal Lab Results 07/09/18 07/09/18 Range/Units 06:00 06:00 RBC 2.98 L (4.7-6.0) M/mm3 Hgb 7.7 L* (13.5-18.0) gm/dL Hct 24.2 L (42.0-52.0) % MCH 25.8 L (27-31) pg MCHC 31.8 L (32-36) g/dl RDW 17.5 H (11.5-14.0) % Plt Count 141 L (150-450) K/mm3 Potassium 4.9 H (3.4-4.6) mmol/L BUN 39 H (6-23) mg/dL Creatinine 1.82 H (0.4-1.4) mg/dL Est GFR (Non-Af Amer) 38 L (60-130) mL/min Random Glucose 146 H (70-110) mg/dL - Exam Constitutional: Present: Alert, Oriented x3, Cooperative, Well developed, No distress Neck: Present: full range of motion, supple Respiratory: Present: chest non-tender, lungs clear, normal breath sounds Cardiovascular/Chest: Present: normal peripheral pulses, regular rate, rhythm Abdomen: Present: Normal bowel sounds, soft, nontender Extremity: Present: lower extremity edema - Minimal left lower extremity edema, leg pain. Absent: slow capillary refill Skin Exam: Present: normal color, warm/dry Appearance: Present: appropriate appearance, appropriate insight Thoughts: Present: normal thought pattern, normal mood /affect Cauti Physician Documentation - Urinary Catheter Management Urethral (Phillip) Date of Insertion: 07/07/18 Time of Insertion: 12:44 Assessment/Plan Plan Narrative: Postop day 2 repair of left intertrochanteric hip fracturepatient doing well from a surgical standpoint. Pain well controlled. Tolerating physical therapy and motivated to improve range of motion as well as ambulatory tolerance. Will follow OrthO recommendations on treatment plan the patient otherwise stable and doing well. Questionable syncopal episodepatient denies syncope yesterday states that he did get dizzy and kind of slouched over but felt like he was still alert and oriented and could hear everything that was going on around him. No further episodes since then. Pressure and vital signs been stable. Patient able to get up out of bed stand transfer himself without complications. We will continue to monitor but otherwise patient doing well. Acute blood loss anemiapatient's hemoglobin decreased from 8.5-7.7. Patient asymptomatic and feeling well, will recheck an H&H this evening. If hemoglobin trends below 7, will transfuse 1 unit. I think some of this is dilutional from the fluid he received yesterday due to his possible syncopal episode. Patient denies shortness of breath, dizziness, vision changes. Nurses to notify me once hemoglobin returns. Overall patient doing well and plans for short-term stay at a local care facility upon discharge on Wednesday. Nurses and/or patient will notify me of any changes to his clinical presentation. Continue current treatment plan. - Problems/Diagnosis (1) Closed left hip fracture Problem: Acute Qualifiers: Encounter type: initial encounter Qualified Code(s): S72.002A - Fracture of unspecified part of neck of left femur, initial encounter for closed fracture (2) Acute blood loss anemia Problem: Acute (3) Syncope Problem: Acute Qualifiers: Syncope type: vasovagal syncope Qualified Code(s): R55 - Syncope and collapse (4) HTN (hypertension) Problem: Chronic Qualifiers: Hypertension type: essential hypertension Qualified Code(s): I10 - Essential (primary) hypertension (5) Multiple myeloma Problem: Chronic (6) Hyperlipidemia Problem: Chronic Qualifiers: Hyperlipidemia type: mixed hyperlipidemia Qualified Code(s): E78.2 - Mixed hyperlipidemia
--- NOTE | 2018-07-09 14:34 | PN ---
Subjective - Date and Time Seen Date: 07/09/18 Time: 14:30 Subjective Narrative: Patient reports no acute events. He states his pain is well controlled. He has been up WB with PT. He notes he feels like walking is better everytime he is up. He states he has no pain in bed, mild pain with standing. He has been tolerating PO diet. Objective - Vitals Vitals: Last Vital Signs Temp 36.8 C 07/09/18 11:05 Pulse 84 07/09/18 11:05 Resp 16 07/09/18 11:05 BP 151/68 H 07/09/18 11:05 Pulse Ox 93 07/09/18 11:05 - Abnormal Lab Findings Abnormal Lab Findings: Abnormal Lab Results 07/09/18 07/09/18 Range/Units 06:00 06:00 RBC 2.98 L (4.7-6.0) M/mm3 Hgb 7.7 L* (13.5-18.0) gm/dL Hct 24.2 L (42.0-52.0) % MCH 25.8 L (27-31) pg MCHC 31.8 L (32-36) g/dl RDW 17.5 H (11.5-14.0) % Plt Count 141 L (150-450) K/mm3 Potassium 4.9 H (3.4-4.6) mmol/L BUN 39 H (6-23) mg/dL Creatinine 1.82 H (0.4-1.4) mg/dL Est GFR (Non-Af Amer) 38 L (60-130) mL/min Random Glucose 146 H (70-110) mg/dL - Exam Constitutional: Present: Alert, Cooperative, No distress Respiratory: Present: no respiratory distress Extremity: Present: other - LLE--> bandages have mild drainage on proximal dressing, SILT, 5/5 PF/DF, distal cap refill brisk, diffuse mild ttp over left hip Appearance: Present: appropriate appearance Eye contact: Present: cooperative Thoughts: Present: normal thought pattern Cauti Physician Documentation - Urinary Catheter Management Urethral (Phillip) Date of Insertion: 07/07/18 Time of Insertion: 12:44 Assessment/Plan Plan Narrative: - 82 male post-op day #2 s/p left closed reduction with cephalomedullary nailing of intertrochanteric femur fracture -Weightbearing as tolerated, assistance as needed, patient previously used a walker daily -PT/OT progress as tolerated -P.o. diet as tolerated -P.o. pain medication as needed, pain well controlled currently -DVT prophylaxis: Can restart Xarelto, SCDs in bed, HEATHER hose -Patient had syncopal episode, no further episodes since yesterday -Dressing, monitor for drainage, will change prior to discharge -Chronic medical conditions per medicine team -Dispo: Once all PT goals met and patient is stable medically, discharged to shelter facility for further PT/OT - Problems/Diagnosis (1) Closed left hip fracture Problem: Acute Qualifiers: Encounter type: initial encounter Qualified Code(s): S72.002A - Fracture of unspecified part of neck of left femur, initial encounter for closed fracture
[2018-07-09] MEDS: SENNOSIDES/DOCUSATE SODIUM 1 TAB TABLET PO SCH (20:06)
[2018-07-10] MEDS: HYDROcodone/ACETAMINOPHEN 1 EACH TABLET PO PRN ×4 (01:04→19:14)
[2018-07-10 05:24] LABS: Mean Cell Volume 83.2 fl (78-100); Mean Corpuscular Hemoglobin 26.1 pg (27-31); Mean Corpuscular Hgb Conc 31.3 g/dl (32-36); Mean Platelet Volume 10.1 fl (8-11.3); Neutrophil # 5.8 K/mm3 (1.3-6.0); Neutrophil % 81.2 % (42-75.0); Platelet Count 141 K/mm3 (150-450); Red Cell Distribution Width 17.8 % (11.5-14.0); White Blood Count 7.2 K/mm3 (4.0-10.5)
[2018-07-10 05:27] LABS: Hematocrit 23.3 % (42.0-52.0); Hemoglobin 7.3 gm/dL (13.5-18.0)
--- NOTE | 2018-07-10 06:15 | PN ---
Subjective - Date and Time Seen Date: 07/10/18 Time: 06:10 Subjective Narrative: Patient did well overnight, states his pain has been well controlled. Vital signs are all within normal limits. He is doing well with physical therapy. He has no questions or concerns Objective - Review of Systems Generalized/Overall Review: Denies: Chills, Fever EENTM: Reports: No Symptoms Reported Respiratory: Denies: Cough, Shortness of Breath Cardiac: Denies: Chest Pain, Palpitations Genitourinary Symptoms: Denies: No Symptoms Reported Musculoskeletal Complaints: Reports: Joint Pain - Well-controlled Neurological: Reports: No Symptoms Reported Skin: Reports: Other - Some discharge at the distal end of his dressing - Vitals Vitals: Last Vital Signs Temp 37.2 C 07/10/18 03:00 Pulse 79 07/10/18 03:00 Resp 18 07/10/18 03:00 BP 141/65 07/10/18 03:00 Pulse Ox 93 07/10/18 03:00 - Abnormal Lab Findings Abnormal Lab Findings: Abnormal Lab Results 07/09/18 07/09/18 07/09/18 Range/Units 06:00 06:00 18:25 RBC 2.98 L (4.7-6.0) M/mm3 Hgb 7.7 L* 8.0 L (13.5-18.0) gm/dL Hct 24.2 L (42.0-52.0) % MCH 25.8 L (27-31) pg MCHC 31.8 L (32-36) g/dl RDW 17.5 H (11.5-14.0) % Plt Count 141 L (150-450) K/mm3 Immature Gran % (Auto) (0.001-0.429) % Immature Gran # (Auto) (0.000-0.0310) K/mm3 Neutrophils % (42-75.0) % Lymphocytes % (20-51) % Lymphocytes # (1.5-3.5) k/mm3 Potassium 4.9 H (3.4-4.6) mmol/L BUN 39 H (6-23) mg/dL Creatinine 1.82 H (0.4-1.4) mg/dL Est GFR (Non-Af Amer) 38 L (60-130) mL/min Random Glucose 146 H (70-110) mg/dL 07/10/18 Range/Units 05:20 RBC 2.80 L (4.7-6.0) M/mm3 Hgb 7.3 L* (13.5-18.0) gm/dL Hct 23.3 L* (42.0-52.0) % MCH 26.1 L (27-31) pg MCHC 31.3 L (32-36) g/dl RDW 17.8 H (11.5-14.0) % Plt Count 141 L (150-450) K/mm3 Immature Gran % (Auto) 1.10 H (0.001-0.429) % Immature Gran # (Auto) 0.08 H (0.000-0.0310) K/mm3 Neutrophils % 81.2 H (42-75.0) % Lymphocytes % 7.7 L (20-51) % Lymphocytes # 0.55 L (1.5-3.5) k/mm3 Potassium (3.4-4.6) mmol/L BUN (6-23) mg/dL Creatinine (0.4-1.4) mg/dL Est GFR (Non-Af Amer) (60-130) mL/min Random Glucose (70-110) mg/dL - Exam Constitutional: Present: Alert, Oriented x3 ENT Exam: Present: hearing grossly normal Neck: Present: non-tender, supple Respiratory: Present: chest non-tender, lungs clear, normal breath sounds Cardiovascular/Chest: Present: normal peripheral pulses, edema - Trace edema left lower extremity, minimal Abdomen: Present: Normal bowel sounds, soft - , minimal, nontender /Rectal: Present: Exam deferred Extremity: Present: other - Exam deferred Skin Exam: Present: normal color, no cyanosis - Dressing mostly clean dry and intact, small amount of serosanguineous discharge distal end of his dressing Neurologic: Present: alert, normal mood/affect, oriented x 3 Appearance: Present: appropriate appearance, appropriate insight Eye contact: Present: cooperative, good eye contact Thoughts: Present: normal thought pattern, normal mood /affect Cauti Physician Documentation - Urinary Catheter Management Urethral (Phillip) Date of Insertion: 07/07/18 Time of Insertion: 12:44 Assessment/Plan Plan Narrative: Postop day 3 repair of left intertrochanteric hip fracturepatient doing well from a surgical standpoint. Pain well controlled. Tolerating physical therapy and motivated to improve range of motion as well as ambulatory tolerance. Will follow Ortho recommendations on treatment plan. Patient otherwise stable and doing well. Questionable syncopal episodeno further events. Pressure and vital signs been stable. Patient able to get up out of bed stand transfer himself without complications. We will continue to monitor but otherwise patient doing well. Acute blood loss anemiapatient's hemoglobin decreased, Was down to 7.3 today. Patient asymptomatic and feeling well but due to patient being discharged to a short-term care facility tomorrow will transfuse 1 unit today with repeat hemoglobin 2 hours posttransfusion. Patient denies shortness of breath, dizziness, vision changes. Overall patient doing well and plans for short-term stay at a local care facility upon discharge on Wednesday. Nurses and/or patient will notify me of any changes to his clinical presentation. Continue current treatment plan. - Problems/Diagnosis (1) Closed left hip fracture Problem: Acute Qualifiers: Encounter type: initial encounter Qualified Code(s): S72.002A - Fracture of unspecified part of neck of left femur, initial encounter for closed fracture (2) Acute blood loss anemia Problem: Acute Narrative: Will transfuse 1 unit this morning as hemoglobin continues to trend slowly downward. Expected to stabilize in the near future as he is not actively bleeding but due to patient being transferred to the [facility] tomorrow morning rather his hemoglobin and hematocrit be higher. Patient is in agreement. Patient has been typed and crossed for 1 unit. Repeat hemoglobin in 2 hours posttransfusion. (3) Syncope Problem: Acute Qualifiers: Syncope type: vasovagal syncope Qualified Code(s): R55 - Syncope and collapse (4) HTN (hypertension) Problem: Chronic Qualifiers: Hypertension type: essential hypertension Qualified Code(s): I10 - Essential (primary) hypertension (5) Multiple myeloma Problem: Chronic (6) Hyperlipidemia Problem: Chronic Qualifiers: Hyperlipidemia type: mixed hyperlipidemia Qualified Code(s): E78.2 - Mixed hyperlipidemia
[2018-07-10] MEDS: PANTOPRAZOLE SODIUM 20 MG TABLET.DR PO SCH (07:07)
[2018-07-10] MEDS: DOCUSATE SODIUM 100 MG CAPSULE PO SCH (08:03)
[2018-07-10] MEDS: LACTOBACILLUS ACIDOPHILUS 100 CAP BTL PO SCH (08:03)
[2018-07-10] MEDS: CHOLECALCIFEROL 5,000 UNIT TABLET PO SCH (08:03)
[2018-07-10] MEDS: ASPIRIN 81 MG TABLET.DR PO SCH (08:04)
[2018-07-10] MEDS: RIVAROXABAN 20 MG TABLET PO SCH (08:04)
[2018-07-10] MEDS: ACYCLOVIR 200 MG CAPSULE PO SCH ×2 (08:04→21:01)
[2018-07-10] MEDS: MULTIVIT-MIN/FA/LYCOPEN/LUTEIN 1 TAB TABLET PO SCH (08:04)
[2018-07-10] MEDS: CALCIUM CARBONATE/VITAMIN D3 1 TAB TABLET PO SCH ×2 (08:04→21:01)
[2018-07-10] MEDS: FLUCONAZOLE 100 MG TABLET PO SCH (08:04)
[2018-07-10] MEDS: FERROUS SULFATE 325 MG TABLET PO SCH (08:04)
[2018-07-10 12:53] LABS: Hematocrit 28.7 % (42.0-52.0); Hemoglobin 9.2 gm/dL (13.5-18.0); Mean Cell Volume 84.2 fl (78-100); Mean Corpuscular Hgb Conc 32.1 g/dl (32-36); Mean Platelet Volume 10.2 fl (8-11.3); Platelet Count 167 K/mm3 (150-450); Red Blood Count 3.41 M/mm3 (4.7-6.0); Red Cell Distribution Width 17.2 % (11.5-14.0)
[2018-07-10] MEDS: SENNOSIDES/DOCUSATE SODIUM 1 TAB TABLET PO SCH (21:01)
[2018-07-11] MEDS: HYDROcodone/ACETAMINOPHEN 1 EACH TABLET PO PRN (07:14)
[2018-07-11] MEDS: PANTOPRAZOLE SODIUM 20 MG TABLET.DR PO SCH (07:14)
--- NOTE | 2018-07-11 08:34 | DS ---
(1) Closed left hip fracture Diagnosis(s): s/p CRIF Problem: Acute Qualifiers: Encounter type: initial encounter Qualified Code(s): S72.002A - Fracture of unspecified part of neck of left femur, initial encounter for closed fracture (2) Acute blood loss anemia Diagnosis(s): s/p BT x 1 Problem: Acute (3) Syncope Problem: Resolved Qualifiers: Syncope type: vasovagal syncope Qualified Code(s): R55 - Syncope and collapse (4) Chronic renal failure Problem: Chronic Qualifiers: Chronic kidney disease stage: stage 3 (moderate) Qualified Code(s): N18.3 - Chronic kidney disease, stage 3 (moderate) (5) Multiple myeloma Problem: Chronic (6) CAD (coronary artery disease) Problem: Chronic Qualifiers: Coronary Disease-Associated Artery/Lesion type: bypass graft [place] vs. transplanted heart: [place] heart Associated angina: without angina Qualified Code(s): I25.810 - Atherosclerosis of coronary artery bypass graft(s) without angina pectoris (7) HTN (hypertension) Problem: Chronic Qualifiers: Hypertension type: essential hypertension Qualified Code(s): I10 - Essential (primary) hypertension (8) Hyperlipidemia Problem: Chronic Qualifiers: Hyperlipidemia type: mixed hyperlipidemia Qualified Code(s): E78.2 - Mixed hyperlipidemia Description of Stay: Carson Bajwa, is a 82 year old white male with past medical history of multiple myeloma, and multiple cardiac stents who sustained a fractured left hip after ground-level fall and was admitted on 07/06/2018. He was trying to sit in the walker slipped out from underneath him. He is on Velcade cycle for his multiple myeloma, and is next due for his next infusion tomorrow. He also takes dexamethasone as part of his MM treatment. He also takes prophylactic fluconazole and acyclovir. He was prescribed Xarelto for what he describes as multiple blockages in his lower extremity veins. He underwent CRIF with a cephalomedullary nail on 07/07/17. He had a syncopal /presyncopal episode likely due to vasovagal response. He has been undergoing PT/OT. His Xarelto was restarted. He had acute blood loss anemia and received 1 unit of PRBC. He is now stable to be discharged to [facility] for more PT/OT and strengthening exercises. Procedures Performed: see notes below List Procedures: closed reduction with cephalomedullary nail fixation Results and Findings: Lab Pending Results 07/06/18 19:44: WBC 14.1 H D, RBC 4.21 L, Hgb 11.1 L, Hct 34.8 L, MCV 82.7, MCH 26.4 L, MCHC 31.9 L, RDW 17.9 H, Plt Count 223, MPV 9.8, Immature Gran % (Auto) 0.80 H, Immature Gran # (Auto) 0.12 H, Neutrophils % 89.4 H, Lymphocytes % 3.2 L, Monocytes % 6.5, Eosinophils % 0.0, Basophils % 0.1, Nucleated RBC % 0.0, Neutrophils # 12.6 H, Lymphocytes # 0.45 L, Monocytes # 0.9, Eosinophils # 0.0, Absolute Basophils 0.0 07/06/18 19:44: Sodium 141, Plasma Sodium 141, Potassium 5.2 H, Chloride 107 H, Carbon Dioxide 24.9, Anion Gap 14.3 H, BUN 34 H, Creatinine 1.80 H, Est GFR (Non-Af Amer) 39 L, BUN/Creatinine Ratio 18.9, Random Glucose 121 H, Calcium 9.4, Calcium Adj for Albumin 9.6, Total Bilirubin 0.2, AST 18, ALT 19, Alkaline Phosphatase 84, Total Protein 6.8, Albumin 3.3 L 07/08/18 05:15: WBC 7.5 D, RBC 3.32 L, Hgb 8.5 L, Hct 27.5 L, MCV 82.8, MCH 25.6 L, MCHC 30.9 L, RDW 17.8 H, Plt Count 163, MPV 10.6 07/08/18 05:15: Sodium 138, Plasma Sodium 138, Potassium 4.5, Chloride 105, Carbon Dioxide 25.7, Anion Gap 11.8, BUN 34 H, Creatinine 1.92 H, Est GFR (Non- Af Amer) 36 L, BUN/Creatinine Ratio 17.7, Random Glucose 130 H, Calcium 8.2 07/09/18 06:00: WBC 8.8, RBC 2.98 L, Hgb 7.7 L*, Hct 24.2 L, MCV 81.2, MCH 25.8 L, MCHC 31.8 L, RDW 17.5 H, Plt Count 141 L, MPV 10.0 02/16/19 06:00: Sodium 137, Plasma Sodium 138, Potassium 4.9 H, Chloride 104, Carbon Dioxide 24.8, Anion Gap 13.1, BUN 39 H, Creatinine 1.82 H, Est GFR (Non- Af Amer) 38 L, BUN/Creatinine Ratio 21.4, Random Glucose 146 H, Calcium 8.4 07/09/18 18:25: Hgb 8.0 L 07/10/18 05:20: WBC 7.2, RBC 2.80 L, Hgb 7.3 L*, Hct 23.3 L*, MCV 83.2, MCH 26.1 L, MCHC 31.3 L, RDW 17.8 H, Plt Count 141 L, MPV 10.1, Immature Gran % (Auto) 1.10 H, Immature Gran # (Auto) 0.08 H, Neutrophils % 81.2 H, Lymphocytes % 7.7 L, Monocytes % 8.5, Eosinophils % 1.5, Basophils % 0.0, Nucleated RBC % 0.0, Neutrophils # 5.8, Lymphocytes # 0.55 L, Monocytes # 0.6, Eosinophils # 0.1, Absolute Basophils 0.0 07/10/18 06:04: Blood Type O Positive, Antibody Screen Negative, Crossmatch See Detail 07/10/18 12:50: WBC 8.0, RBC 3.41 L, Hgb 9.2 L, Hct 28.7 L, MCV 84.2, MCH 27.0, MCHC 32.1, RDW 17.2 H, Plt Count 167, MPV 10.2 Discharge Location: [facility] Disposition: SNF Condition: Stable Level of Care: SNF Discharge Activity: Activity as tolerated Discharge Diet: Low salt, Low fat/chol Half-Way Therapy: Physicial Therapy, Occupation Therapy Referrals: Bri Anderson MD [Primary Care Provider] - Additional Patient Instructions (free text): To [facility] at discharge for SNF for PT and OT to Evaluate and treat. Please call and fax discharge instructions to [facility]. Will follow up with PCP in 2 weeks when he follows up with Orthopedics. Prescriptions (Any new or edited meds): Ferrous Sulfate 325 mg PO DAILY #30 tab HYDROcodone/ACETAMINOPHEN [[place] 5-325] 2 ea PO Q4H PRN #30 tab PRN Reason: Severe Pain (Pain Scale 7-10) HYDROcodone/ACETAMINOPHEN [[place] 5-325] 1 ea PO Q4H PRN #30 tab PRN Reason: Moderate Pain (Pain Scale 4-6) Mag Hydrox/Aluminum Hyd/Simeth [Maalox Plus Suspension] 30 ml PO Q6H PRN #1 udc PRN Reason: Indigestion Sennosides/Docusate Sodium [Senokot-S] 2 tab PO HS #30 tab Complete Home Medications List: Complete Home Medication List: Nitroglycerin 0.4 mg SL PRN 07/22/15 Acetaminophen [Tylenol] 500 mg PO QID PRN #30 tab 10/24/15 Aspirin [Aspirin Enteric Coated] 81 mg PO DAILY 11/04/16 Acyclovir [Zovirax] 400 mg PO BID 02/25/17 Calcium Carbonate/Vitamin D3 [Calcium 500-Vit D3 600 Tablet] 1 each PO BID 02/25/17 Cholecalciferol (Vitamin D3) [Vitamin D3] 5,000 unit PO DAILY 02/25/17 Docusate Sodium [Doc-Q-Lace] 100 mg PO DAILY 02/25/17 Fluconazole [Diflucan] 100 mg PO DAILY 02/25/17 Omeprazole 20 mg PO DAILY 02/25/17 Multivit-Min/FA/Lycopen/Lutein [Centrum Silver Men Tablet] 1 ea PO DAILY 10/02/17 Rivaroxaban [Xarelto] 20 mg PO DAILY 10/02/17 L.acidoph,Paracasei, B.lactis [Probiotic] 1 ea PO DAILY 12/09/17 Ferrous Sulfate 325 mg PO DAILY #30 tab 07/11/18 HYDROcodone/ACETAMINOPHEN [[place] 5-325] 1 ea PO Q4H PRN #30 tab 07/11/18 HYDROcodone/ACETAMINOPHEN [[place] 5-325] 2 ea PO Q4H PRN #30 tab 07/11/18 Mag Hydrox/Aluminum Hyd/Simeth [Maalox Plus Suspension] 30 ml PO Q6H PRN #1 udc 07/11/18 Sennosides/Docusate Sodium [Senokot-S] 2 tab PO HS #30 tab 07/11/18
[2018-07-11] MEDS: MULTIVIT-MIN/FA/LYCOPEN/LUTEIN 1 TAB TABLET PO SCH (08:45)
[2018-07-11] MEDS: CHOLECALCIFEROL 5,000 UNIT TABLET PO SCH (08:45)
[2018-07-11] MEDS: FLUCONAZOLE 100 MG TABLET PO SCH (08:45)
[2018-07-11] MEDS: ASPIRIN 81 MG TABLET.DR PO SCH (08:45)
[2018-07-11] MEDS: CALCIUM CARBONATE/VITAMIN D3 1 TAB TABLET PO SCH (08:46)
[2018-07-11] MEDS: ACYCLOVIR 200 MG CAPSULE PO SCH (08:46)
[2018-07-11] MEDS: LACTOBACILLUS ACIDOPHILUS 100 CAP BTL PO SCH (08:46)
[2018-07-11] MEDS: DOCUSATE SODIUM 100 MG CAPSULE PO SCH (08:46)
[2018-07-11] MEDS: FERROUS SULFATE 325 MG TABLET PO SCH (08:46)
[2018-07-11] MEDS: RIVAROXABAN 20 MG TABLET PO SCH (08:46)
[2018-07-11 09:02] VITALS: BP 134/68
--- NOTE | 2018-07-11 09:02 | PN ---
Progess Note - Interim Date: 07/11/18 Time: 08:57 Narrative: 07/11/18 08:57 Orthopedic Discharge Instructions: 1. WBAT, ROM as tolerated. 2. PT for progressive mobility and hip strengthening. 3. Change dressings every 2-3 days as needed with 4x4 gauze and tegaderm or Me dipore tape. 4. Follow up in Orthopedic clinic in 2 weeks for staple removal. ([phone] to make appointment) Willi Irving MD
--- NOTE | 2018-07-11 12:46 | PN ---
Mitesh Note - Interim Date: 07/11/18 Time: 08:00 Narrative: 07/11/18 12:44 Patient reports no acute events. He notes he has been up with physical therapy, has mild pain with standing, improvement with rest. Exam today reveals mild serosanguineous drainage on the proximal dressing, sensation intact light touch, 5/5 plantar flexion dorsiflexion, distal capillary refill brisk. Dressings were changed without complication, no significant erythema or drainage from vertical sites. Plan to be discharged per medicine to custodial facility today. -Recommendations per Dr. Irving's note
== END 2018-07-11 10:30 | DRG 481 ==
LOC: ER 17:14 → MS 19:53
PROVIDERS: ADMIT Family Medicine; ATTEND Internal Medicine
DX: Y92.015 Private garage of single-family (private) house as the place of occurrence of the external cause; Z23 Encounter for immunization; Z87.891 Personal history of nicotine dependence; I12.9 Hypertensive chronic kidney disease with stage 1 through stage 4 chronic kidney disease, or unspecified chronic kidney disease; W07.XXXA Fall from chair, initial encounter; N18.3 Chronic kidney disease, stage 3 (moderate); S72.142A Displaced intertrochanteric fracture of left femur, initial encounter for closed fracture; K21.9 Gastro-esophageal reflux disease without esophagitis; C90.00 Multiple myeloma not having achieved remission; D62 Acute posthemorrhagic anemia; E78.2 Mixed hyperlipidemia; I25.810 Atherosclerosis of coronary artery bypass graft(s) without angina pectoris; I13.10 Hypertensive heart and chronic kidney disease without heart failure, with stage 1 through stage 4 chronic kidney disease, or unspecified chronic kidney disease; R55 Syncope and collapse
CPT/HCPCS: 36415; 71010; 71045; 73502; 76000; 80048; 80053; 85018; 85025; 85027; 86850; 86900; 90471; 90686; 93005; 96374; 97110; 97162; 97165; 97530; 99285; P9016

== ENCOUNTER 2019-12-06 11:28 | Observation (INO) ==
[2019-12-06] MEDS ORDERED: NORMAL SALINE 1,000 ML IV ONE (11:41)
--- NOTE | 2019-12-06 11:42 | ERNOTE ---
Dizziness ER Record Date of Service: 12/06/19 Presenting Symptoms: dizziness, weakness, near-fainting Time Seen by Provider: 12/06/19 11:31 Source: patient, family, RN/MD, RN notes reviewed, old records Exam Limitations: no limitations Immunizations: IMMUNIZATION HX Immunizations Up to Date Yes History of Influenza Vaccine Yes Hx Pneumococcal Vaccination No Allergies/Adverse Reactions: Allergies Allergy/AdvReac Type Severity Reaction Status Date / Time Sulfa (Sulfonamide Allergy Intermediate Hives Verified 12/06/19 15:00 Antibiotics) atorvastatin calcium Allergy Unknown Muscle Pain Verified 12/06/19 15:00 [From Lipitor] Sztylli-Aku-Zds Reductase Allergy Unknown legs get Verified 12/06/19 15:00 Inhibitor weak and he can't walk Home Medications: HOME MEDICATIONS Aspirin [Aspirin Enteric Coated] 81 mg PO DAILY 11/04/16 [Last Taken Unknown] Cholecalciferol (Vitamin D3) [Vitamin D3] 5,000 unit PO DAILY 02/25/17 [Last Taken Unknown] lactobacillus combination no.9 4 billion cell capsule 4,000 mmu cells PO DAILY 08/09/18 [Last Taken Unknown] iwiidgon-nol-lxkmj acid 300 mcg-lycopene 600 mcg-lutein 300 mcg tablet 1 tab PO DAILY 08/09/18 [Last Taken Unknown] Polyethylene Glycol 3350 [Miralax] 17 gm PO PRN PRN 09/23/18 [Last Taken Unknown] rivaroxaban 20 mg tablet 20 mg PO DAILY 10/10/18 [Last Taken Unknown] furosemide 20 mg tablet 20 mg PO DAILY 12/01/18 [Last Taken Unknown] lisinopril 40 mg tablet 20 mg PO DAILY 02/06/19 [Last Taken Unknown] metoprolol succinate 50 mg tablet,extended release 24 hr 50 mg PO DAILY 02/06/19 [Last Taken Unknown] acetaminophen 325 mg capsule 325 mg PO Q6H PRN 02/21/19 [Last Taken Unknown] acyclovir 400 mg tablet 400 mg PO BID 02/21/19 [Last Taken Unknown] famotidine 20 mg tablet 20 mg PO HS 02/21/19 [Last Taken Unknown] Isosorbide Mononitrate [Imdur] 30 mg PO DAILY 05/12/19 [Last Taken Unknown] calcium carbonate 600 mg calcium (1,500 mg) tablet 600 mg PO BID tab 06/13/19 [Last Taken Unknown] ixazomib 4 mg capsule 4 mg PO QWEEK cap 06/13/19 [Last Taken Unknown] pamidronate 30 mg intravenous solution 90 mg IV [id number] ea 06/13/19 [Last Taken Unknown] nitroglycerin 0.4 mg sublingual tablet 0.4 mg SL Q5M PRN #30 tab 08/16/19 [Last Taken Unknown] methocarbamol 500 mg tablet 500 mg PO TID PRN #30 tab 10/23/19 [Last Taken Unknown] meclizine 25 mg tablet 25 mg PO BID PRN #60 tab 10/26/19 [Last Taken Unknown] omeprazole 40 mg capsule,delayed release 40 mg PO DAILY #90 cap 12/04/19 [Last Taken Unknown] DULoxetine HCL [Cymbalta] 30 mg PO HS 12/06/19 [Last Taken Unknown] Dexamethasone [Decadron] 4 mg PO .Q 4 WEEKS 12/06/19 [Last Taken Unknown] - History of Present Illness Narrative: Carson is a 84 year old male brought to the Emergency Department by ambulance for dizziness. He reports that he has generally not felt well for the past few days. He has had diarrhea a few times in the past few days. He became dizzy while he was going down stairs in his stair lift chair. He has chronic problems with dizziness and has been prescribed Meclizine, but has not taken any today. He denies any chest pain. He does admit to some shortness of breath but states it is not worse than his usual. Sense of movement: Present: vague Fainted/near fainted while:: Present: sitting Modifying Factors - (Improves): Reports: nothing Modifying Factors - (Worsens): Reports: nothing Prior Treament: Reports: similar symptoms before Review of Systems - Review of Systems Constitutional: Present: fatigue, malaise. Absent: recent illness, fever, chills EYE: Absent: eye pain, vision changes ENT: Absent: ear pain, nose congestion, sore throat Respiratory: Present: shortness of breath. Absent: cough, orthopnea Cardiology: Present: edema. Absent: chest pain Gastrointestinal/Abdominal: Present: diarrhea. Absent: vomiting, abdominal pain Genitourinary: Absent: dysuria, decreased urinary output Musculoskeletal: Present: no symptoms reported Skin: Absent: rash, lesions Neurological: Present: dizziness/light-headedness. Absent: headache Endocrine: Present: no symptoms reported Hematologic/Lymphatic: Present: easy bruising, easy bleeding Psych: Present: no symptoms reported Medical History (Last Reviewed 12/06/19 @ 13:10 by Irma Fox NP) Hip fracture, left (Acute) Onset Date: ~06/2018 HTN (hypertension) (Chronic) Onset Date: Unknown Hyperlipidemia (Chronic) Onset Date: Unknown GERD (gastroesophageal reflux disease) (Chronic) Onset Date: Unknown CAD (coronary artery disease) (Chronic) Onset Date: Unknown 10 stents placed Chest discomfort (Acute) Back pain (Acute) Pneumonia (Acute) Coronary artery disease (Chronic) Hypertension (Chronic) Acute on chronic renal failure (Acute) Dehydration (Acute) Degenerative disc disease, lumbar (Acute) Intractable low back pain (Acute) 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, multiple vessel (Chronic) Chest pain (Acute) Dehydration (Acute) Abdominal pain (Acute) Head injury (Acute) Skin tear of elbow without complication (Acute) Fall (Acute) Orthostatic hypotension (Acute) Contusion of hip, left (Acute) Shoulder pain, right (Acute) Right-sided nosebleed (Acute) Aortic regurgitation Onset Date: 12/23/12 Mild Atrial fibrillation Onset Date: Unknown COPD (chronic obstructive pulmonary disease) Onset Date: Unknown Cancer Onset Date: ~2010 Removed lump behind Rt ear DJD (degenerative joint disease) Onset Date: Unknown Degenerative joint disease of knee Onset Date: 11/02/12 Gastric ulcer Onset Date: 11/03/92 Hydrocele Onset Date: 04/23/98 Rt (spermatocele) Intraductal papillary mucinous neoplasm Onset Date: Unknown Loose body in knee Onset Date: 11/02/12 Not symptomatic Multiple myeloma Onset Date: ~09/25/16 Multiple myeloma Onset Date: 09/22/16 Myocardial infarction Onset Date: 09/18/16 PUD (peptic ulcer disease) Onset Date: Unknown Peripheral neuropathy Onset Date: Unknown Pneumonia Onset Date: 07/08/98 Pseudoaneurysm of right femoral artery Onset Date: Unknown Shoulder pain Onset Date: Unknown Spermatocele Onset Date: Unknown Spinal stenosis Onset Date: Unknown Stasis dermatitis of both legs Onset Date: 07/14/96 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 Closed reduction, cephalo-medullary fixation left intertrochanteric femur fracture S/P CABG x 3 (Acute) Hx of heart artery stent 9 stents Hx of tonsillectomy Onset Date: ~1943 hx dog bite--surgery to clean Onset Date: Unknown Breast cyst removal Onset Date: ~1957 Lt breast History of back surgery Onset Date: ~01/2015 Jayme L1, L2, L3 Kasi-laminectomy and jayme L1, L2, L3-4 partial facetectomy. History of bone marrow biopsy Onset Date: 01/28/17 History of cancer surgery Onset Date: ~07/2010 Skin cancer removed behind Rt ear History of esophagogastroduodenoscopy (EGD) Onset Date: ~1994 1990, 1992, 1993, 1994 Hx of CABG Onset Date: 09/28/16 [facility] [address] Rodriguez Hx of cardiac catheterization Onset Date: ~2011 2003, 2006, 2010, 2011 Hx of colonoscopy Onset Date: 06/13/182005. 06/13/18 Bagan-very capacious redundant colon. 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 Recheck 3 yrs. Hx of epidural steroid injection Onset Date: ~1996 1989, 1990, 1994, 1996 Lower epidural and cervical region Hx of shoulder surgery Onset Date: ~04/2010 Left shoulder labral repair with 2 opus suture anchors Stent Onset Date: ~2003May 2003, Jun 2003, Sept - 2 in LAD and 1 in diagnonal, 1 in circumflex, 3 in RCA, 2, 1 in main artery. Family History: Family History (Last Reviewed 12/06/19 @ 13:10 by Irma Fox NP) Father , age 87-old age Heart disease Mother , age 63-unsure of cause Enlarged heart Sister , x2 COPD (chronic obstructive pulmonary disease) History of colon surgery Hx of right mastectomy Cancer Lung Brother Dementia Parkinson disease Sister Obesity Social History: (Last Reviewed 12/06/19 @ 13:10 by Irma Fox NP) Social History: Marital status: household members: spouse number of children: 2 current occupational status: retired Highest education level completed: high school graduate Service: No Tobacco: Smoking Status: Never smoker Alcohol: alcohol intake: current details: Some day - social Substance Use: substance use type: does not use Dietary Habits: caffeine: Yes caffeine comment: Some day - occasional pop Personal Safety: victim of physical abuse: No victim of emotional abuse: No Physical Exam - Physical Exam General Appearance: Present: wd/wn, alert, mild distress Head Exam: Present: normal inspection, no evidence of injury Eye Exam: Normal inspection: bilateral Ears, Nose, Throat: Present: normal ENT inspection, normal pharynx Neck: Present: normal inspection, nontender, supple Respiratory: Present: no respiratory distress, normal breath sounds, no accessory muscle use, lungs clear Cardiovascular/Chest: Present: regular rate, rhythm, normal peripheral pulses Gastrointestinal/Abdominal: Present: nontender, nondistended, soft Extremity Exam: Present: non-tender, normal range of motion, pedal edema Neurological Exam: Present: alert, oriented, normal mood/affect, no motor/sensory deficits Skin Exam: Present: warm/dry, pallor Progress - Results and Orders Patient's Lab Results:: I have reviewed the patient's lab results. - Vital Signs Patient's Vital Signs:: I have reviewed the patient's vital signs. Vital Signs: Vital Signs 12/06/19 11:32 Temperature 36.9 C Pulse Rate 75 Respiratory Rate 13 Blood Pressure 110/52 O2 Sat by Pulse Oximetry 96 - EKG EKG #1 EKG: NSR, nonspecific ST T wave changes EKG read: Reviewed by me - X-Ray X-Ray #1 X-Ray: chest Interpretation: Reviewed by me X-ray Comments: Technique: PA and lateral views. Comparison: 01/03/2019 Findings: There are postoperative changes from multivessel CABG. There is scarring and fibrosis in the left lung base. Heart size and vascularity appear within normal limits. There are coronary artery vascular stents. There are no focal infiltrates or effusions. There are degenerative changes in the thoracic spine. IMPRESSION: CHRONIC FINDINGS DISCUSSED. NO ACUTE CARDIOPULMONARY DISEASE OTHERWISE IDENTIFIED. Electronically signed by Troy Dlegado M.D.. - Progress/Reassessment Chief Complaint: Dizziness Progress:: Unchanged Progress Note-Subjective: 12/06/19 14:10 The patient was markedly orthostatic on arrival. He was given a liter of NS. His labwork then showed a BNP of 8000 (his highest previously was 2000). Chest xray is stable, no pulmonary congestion or edema. Orthostatic vitals were repeated and the patient's blood pressure dropped from the 140's when lying down to the 90's systolic when he sat up. He reports that he is not feeling any better than he did on arrival. Plan - Plan Plan: The patient continues to be orthostatic despite IV fluids and has an elevated BNP at 8000. Dr. Anderson was contacted and agreed to admit the patien to observation status. Departure Clinical Impression: Orthostatic hypotension CHF (congestive heart failure) Qualifiers: Heart failure type: unspecified Heart failure chronicity: acute on chronic Qualified Code(s): I50.9 - Heart failure, unspecified - Departure Disposition: Still a patient Condition: Stable
[2019-12-06 12:23] LABS: ALT 17 U/L (19-67); AST 18 U/L (0-48); Albumin * 2.9 gm/dl (3.4-5.0); Alkaline Phosphatase * 76 U/L (50-170); Anion Gap 6.2 mmol/L (6.8-13.8); BNP * 8136 pg/mL (5-650); BUN/Creatinine Ratio 11.7 (9.0-21.6); Bilirubin, Total 0.2 mg/dL (0.0-1.1); Blood Urea Nitrogen 21 mg/dL (6-23); Ca. Corrected For Albumin 8.7 mg/dL (8.4-10.2); Calcium * 8.1 mg/dL (7.9-10.9); Carbon Dioxide 28.6 mmol/L (24-32.6); Chloride 108 mmol/L (97-106); Glucose * 145 mg/dL (70-110); Potassium 3.8 mmol/L (3.4-4.6); Sodium 139 mmol/L (132-142); Total Protein 5.9 gm/dL (6.2-8.2)
[2019-12-06 12:25] LABS: Hematocrit 30.8 % (42.0-52.0); Hemoglobin 9.7 gm/dL (13.5-18.0); Mean Cell Volume 82.6 fl (78-100); Mean Corpuscular Hgb Conc 31.5 g/dl (32-36); Mean Platelet Volume 10.7 fl (8-11.3); Platelet Count 89 K/mm3 (150-450); Red Blood Count 3.73 M/mm3 (4.7-6.0); Red Cell Distribution Width 16.7 % (11.5-14.0); Troponin I Less than 0.017 ng/mL (0.00-0.10); White Blood Count 3.2 K/mm3 (4.0-10.5)
[2019-12-06 12:27] LABS: Total Cells Counted 100
[2019-12-06 13:08] LABS: Band 13 % (0-2.0); Eosinophil 1 % (0-3); Immature Granulocyte 4 (0-1); Lymphocyte 5 % (20-51); Monocyte 6 % (0-9); Neutrophil 71 % (42-75); Neutrophil # 2.3 K/mm3 (1.3-6.0)
[2019-12-06 13:12] LABS: Urine Bilirubin Negative (NEGATIVE); Urine Blood Negative /ul (NEGATIVE); Urine Ketone Negative (NEGATIVE); Urine Nitrite Negative (NEGATIVE); Urine Protein Negative (NEGATIVE); Urine Urobilinogen Normal (NORMAL)
[2019-12-06 13:22] LABS: Urine Appearance Clear (CLEAR); Urine Bacteria None Seen; Urine Color Yellow; Urine RBC None Seen /hpf (0-5); Urine WBC None Seen /hpf (0-5)
--- NOTE | 2019-12-06 17:06 | HP ---
Chief Complaint - Chief Complaint Date of Service: 12/06/19 Time of Service: 17:05 Chief Complaint: dizziness, weakness History of Present Illness: Carson Bajwa is an 84-year-old white male with past medical history of multiple myeloma in remission, chronic renal failure, hypertension, hyperlipidemia, coronary artery disease status post CABG, who was admitted on 12/06/2019 because of dizziness, weakness. The patient says that he has been h aving diarrhea a few times in the past few days. He denies any nausea, vomiting, abdominal pain, constipation, chest pain, bronchitic condition, vertigo. As she was going down the stairs the patient started having extreme dizziness more than his usual and felt weak. He called his to assist him. She thought he was having a stroke and so she brought her to our emergency room. In the emergency room the patient was found to be orthostatic and had no neurological deficit. He was given 1 L of IV fluids but when his labs came back his BNP was elevated at 8000. His chest x-ray showed no acute cardiopulmonary findings except for chronic changes. Repeat orthostatic vital signs were still positive and so he was admitted for observation. Currently patient is awake alert oriented x3 and not orthopneic. Medical History (Last Updated 12/06/19 @ 14:58 by Kush Gonzáles RN) Hip fracture, left (Acute) Onset Date: ~06/2018 HTN (hypertension) (Chronic) Onset Date: Unknown Hyperlipidemia (Chronic) Onset Date: Unknown GERD (gastroesophageal reflux disease) (Chronic) Onset Date: Unknown CAD (coronary artery disease) (Chronic) Onset Date: Unknown 10 stents placed Chest discomfort (Acute) Back pain (Acute) Pneumonia (Acute) Coronary artery disease (Chronic) Hypertension (Chronic) Acute on chronic renal failure (Acute) Dehydration (Acute) Degenerative disc disease, lumbar (Acute) Intractable low back pain (Acute) 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, multiple vessel (Chronic) Chest pain (Acute) Dehydration (Acute) Abdominal pain (Acute) Head injury (Acute) Skin tear of elbow without complication (Acute) Fall (Acute) Orthostatic hypotension (Acute) Contusion of hip, left (Acute) Shoulder pain, right (Acute) Right-sided nosebleed (Acute) Aortic regurgitation Onset Date: 12/23/12 Mild Atrial fibrillation Onset Date: Unknown Cancer Onset Date: ~2010 Removed lump behind Rt ear DJD (degenerative joint disease) Onset Date: Unknown Degenerative joint disease of knee Onset Date: 11/02/12 Gastric ulcer Onset Date: 11/03/92 Hydrocele Onset Date: 04/23/98 Rt (spermatocele) Intraductal papillary mucinous neoplasm Onset Date: Unknown Loose body in knee Onset Date: 11/02/12 Not symptomatic Multiple myeloma Onset Date: ~09/25/16 Multiple myeloma Onset Date: 09/22/16 Myocardial infarction Onset Date: 09/18/16 PUD (peptic ulcer disease) Onset Date: Unknown Peripheral neuropathy Onset Date: Unknown Pneumonia Onset Date: 07/08/98 Pseudoaneurysm of right femoral artery Onset Date: Unknown Shoulder pain Onset Date: Unknown Spermatocele Onset Date: Unknown Spinal stenosis Onset Date: Unknown Stasis dermatitis of both legs Onset Date: 07/14/96 Steroid myopathy Onset Date: Unknown Tracheal mass Onset Date: Unknown Arthritis Onset Date: Unknown Chronic renal failure Onset Date: Unknown Surgical History: Surgical History (Last Reviewed 12/06/19 @ 14:58 by Kush Gonzáles RN) Status post hip surgery (Acute) Onset Date: ~07/07/18 1. Closed reduction, cephalo-medullary fixation left intertrochanteric femur fracture S/P CABG x 3 (Acute) Hx of heart artery stent 9 stents Hx of tonsillectomy Onset Date: ~1943 hx dog bite--surgery to clean Onset Date: Unknown Breast cyst removal Onset Date: ~1957 Lt breast History of back surgery Onset Date: ~01/2015 Jayme L1, L2, L3 Kasi-laminectomy and jayme L1, L2, L3-4 partial facetectomy. History of bone marrow biopsy Onset Date: 01/28/17 History of cancer surgery Onset Date: ~07/2010 Skin cancer removed behind Rt ear History of esophagogastroduodenoscopy (EGD) Onset Date: ~1994 1990, 1992, 1993, 1994 Hx of CABG Onset Date: 09/28/16 [facility] [address] Rodriguez Hx of cardiac catheterization Onset Date: ~2011 2003, 2006, 2010, 2011 Hx of colonoscopy Onset Date: 06/13/182005. 06/13/18 Bagan-very capacious redundant colon. 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 Recheck 3 yrs. Hx of epidural steroid injection Onset Date: ~1996 1989, 1990, 1994, 1996 Lower epidural and cervical region Hx of shoulder surgery Onset Date: ~04/2010 Left shoulder labral repair with 2 opus suture anchors Stent Onset Date: ~2003May 2003, Jun 2003, Jan - 2 in LAD and 1 in diagnonal, 1 in circumflex, 3 in RCA, 2, 1 in main artery. Family History: Family History (Last Reviewed 12/06/19 @ 14:59 by Kush Gonzáles RN) Father , age 87-old age Heart disease Mother , age 63-unsure of cause Enlarged heart Sister , x2 Cancer Lung Hx of right mastectomy History of colon surgery COPD (chronic obstructive pulmonary disease) Brother Parkinson disease Dementia Sister Obesity Social History: (Last Reviewed 12/06/19 @ 14:59 by Kush Gonzáles RN) Social History: Marital status: household members: spouse number of children: 2 current occupational status: retired Highest education level completed: high school graduate Service: No Tobacco: Smoking Status: Never smoker Alcohol: alcohol intake: current details: Some day - social Substance Use: substance use type: does not use Dietary Habits: caffeine: Yes caffeine comment: Some day - occasional pop Personal Safety: victim of physical abuse: No victim of emotional abuse: No Review Of Systems (GEN) - Review of Systems Generalized/Overall Review: Present: Weakness. Absent: Chills, Fever EENTM: Absent: Blurred Vision Respiratory: Present: Shortness of Breath. Absent: Cough, Orthopnea Cardiac: Absent: Chest Pain, Edema, Palpitations Abdominal: Present: Diarrhea. Absent: Nausea, Vomiting, Abdominal Pain, Constipation Genitourinary: Absent: Urgency, Frequency Musculoskeletal: Absent: Joint Pain Neurological: Absent: Headache Endocrine: Absent: Intolerance to Cold, Intolerance to Heat Misc: All systems neg except as marked Immunizations: IMMUNIZATION HX Immunizations Up to Date Yes History of Influenza Vaccine Yes Hx Pneumococcal Vaccination No Allergies/Adverse Reactions: Allergies Allergy/AdvReac Type Severity Reaction Status Date / Time Sulfa (Sulfonamide Allergy Intermediate Hives Verified 12/06/19 15:00 Antibiotics) atorvastatin calcium Allergy Unknown Muscle Pain Verified 12/06/19 15:00 [From Lipitor] Avantan-Vje-Ytp Reductase Allergy Unknown legs get Verified 12/06/19 15:00 Inhibitor weak and he can't walk Home Medications: HOME MEDICATIONS Aspirin [Aspirin Enteric Coated] 81 mg PO DAILY 11/04/16 [Last Taken Unknown] Cholecalciferol (Vitamin D3) [Vitamin D3] 5,000 unit PO DAILY 02/25/17 [Last Taken Unknown] lactobacillus combination no.9 4 billion cell capsule 4,000 mmu cells PO DAILY 08/09/18 [Last Taken Unknown] fiiwihlo-pxr-uzmpk acid 300 mcg-lycopene 600 mcg-lutein 300 mcg tablet 1 tab PO DAILY 08/09/18 [Last Taken Unknown] rivaroxaban 20 mg tablet 20 mg PO DAILY 10/10/18 [Last Taken Unknown] furosemide 20 mg tablet 20 mg PO DAILY 12/01/18 [Last Taken Unknown] lisinopril 40 mg tablet 20 mg PO DAILY 02/06/19 [Last Taken Unknown] metoprolol succinate 50 mg tablet,extended release 24 hr 25 mg PO DAILY 02/06/19 [Last Taken Unknown] acyclovir 400 mg tablet 400 mg PO BID 02/21/19 [Last Taken Unknown] famotidine 20 mg tablet 20 mg PO HS 02/21/19 [Last Taken Unknown] Isosorbide Mononitrate [Imdur] 30 mg PO DAILY 05/12/19 [Last Taken Unknown] calcium carbonate 600 mg calcium (1,500 mg) tablet 600 mg PO BID tab 06/13/19 [Last Taken Unknown] nitroglycerin 0.4 mg sublingual tablet 0.4 mg SL Q5M PRN #30 tab 08/16/19 [Last Taken Unknown] methocarbamol 500 mg tablet 500 mg PO TID PRN #30 tab 10/23/19 [Last Taken Unknown] omeprazole 40 mg capsule,delayed release 40 mg PO DAILY #90 cap 12/04/19 [Last Taken Unknown] DULoxetine HCL [Cymbalta] 30 mg PO HS 12/06/19 [Last Taken Unknown] Dexamethasone [Decadron] 4 mg PO .Q 4 WEEKS 12/06/19 [Last Taken Unknown] Meclizine HCl [Wal-Dram 2] 20 mg PO BID PRN 12/06/19 [Last Taken Unknown] Exam - Exam Vital Signs: Vital Signs - Last Taken Temp 36.8 C 12/06/19 15:01 Pulse 68 12/06/19 15:01 Resp 16 12/06/19 15:01 BP 137/70 12/06/19 15:01 Pulse Ox 97 12/06/19 15:01 Constitutional: Present: Alert, Oriented x3, Cooperative, Elderly ENT Exam: Present: hearing grossly normal Eye Exam: bilateral eye: normal inspection, PERRL, EOMI Neck: Present: supple Respiratory: Present: decreased breath sounds, No rales, No wheezing Cardiovascular/Chest: Present: regular rate, rhythm, no JVD, no murmur Abdomen: Present: Normal bowel sounds, soft, nontender, nondistended Extremity: Present: no calf tenderness, pedal edema - Trace Diagnostic Studies: Abnormal Lab Results 12/06/19 12/06/19 Range/Units 12:00 12:00 WBC 3.2 L (4.0-10.5) K/mm3 RBC 3.73 L (4.7-6.0) M/mm3 Hgb 9.7 L (13.5-18.0) gm/dL Hct 30.8 L (42.0-52.0) % MCH 26.0 L (27-31) pg MCHC 31.5 L (32-36) g/dl RDW 16.7 H (11.5-14.0) % Plt Count 89 L (150-450) K/mm3 Band Neuts % (Manual) 13 H (0-2.0) % Lymphocytes % (Manual) 5 L (20-51) % Immature Granulocytes 4 H (0-1) Lymphocytes # (Manual) 0.2 L (1.5-3.5) k/mm3 Chloride 108 H (97-106) mmol/L Anion Gap 6.2 L (6.8-13.8) mmol/L Creatinine 1.80 H D (0.4-1.4) mg/dL Est GFR (Non-Af Amer) 39 L D (60-130) mL/min Random Glucose 145 H (70-110) mg/dL ALT 17 L (19-67) U/L B-Natriuretic Peptide 8136 H (5-650) pg/mL Total Protein 5.9 L (6.2-8.2) gm/dL Albumin 2.9 L (3.4-5.0) gm/dl Laboratory Results WBC 3.2 K/mm3 (4.0-10.5) L 12/06/19 12:00 RBC 3.73 M/mm3 (4.7-6.0) L 12/06/19 12:00 Hgb 9.7 gm/dL (13.5-18.0) L 12/06/19 12:00 Hct 30.8 % (42.0-52.0) L 12/06/19 12:00 MCV 82.6 fl (78-100) 12/06/19 12:00 MCH 26.0 pg (27-31) L 12/06/19 12:00 MCHC 31.5 g/dl (32-36) L 12/06/19 12:00 RDW 16.7 % (11.5-14.0) H 12/06/19 12:00 Plt Count 89 K/mm3 (150-450) L 12/06/19 12:00 MPV 10.7 fl (8-11.3) 12/06/19 12:00 Neutrophils % (Manual) 71 % (42-75) 12/06/19 12:00 Band Neuts % (Manual) 13 % (0-2.0) H 12/06/19 12:00 Lymphocytes % (Manual) 5 % (20-51) L 12/06/19 12:00 Monocytes % (Manual) 6 % (0-9) 12/06/19 12:00 Eosinophils % (Manual) 1 % (0-3) 12/06/19 12:00 Immature Granulocytes 4 (0-1) H 12/06/19 12:00 Neutrophils # (Manual) 2.3 K/mm3 (1.3-6.0) 12/06/19 12:00 Lymphocytes # (Manual) 0.2 k/mm3 (1.5-3.5) L 12/06/19 12:00 Monocytes # (Manual) 0.2 k/mm3 (0.0-1.0) 12/06/19 12:00 Eosinophils # (Manual) 0.0 k/mm3 (0.0-0.7) 12/06/19 12:00 Elliptocytes 1+ 12/06/19 12:00 Sodium 139 mmol/L (132-142) 12/06/19 12:00 Plasma Sodium 140 mmol/L (130-142) 12/06/19 12:00 Potassium 3.8 mmol/L (3.4-4.6) 12/06/19 12:00 Chloride 108 mmol/L (97-106) H 12/06/19 12:00 Carbon Dioxide 28.6 mmol/L (24-32.6) 12/06/19 12:00 Anion Gap 6.2 mmol/L (6.8-13.8) L 12/06/19 12:00 BUN 21 mg/dL (6-23) 12/06/19 12:00 Creatinine 1.80 mg/dL (0.4-1.4) H D 12/06/19 12:00 Est GFR (Non-Af Amer) 39 mL/min (60-130) L D 12/06/19 12:00 BUN/Creatinine Ratio 11.7 (9.0-21.6) 12/06/19 12:00 Random Glucose 145 mg/dL (70-110) H 12/06/19 12:00 Calcium 8.1 mg/dL (7.9-10.9) 12/06/19 12:00 Calcium Adj for Albumin 8.7 mg/dL (8.4-10.2) 12/06/19 12:00 Total Bilirubin 0.2 mg/dL (0.0-1.1) 12/06/19 12:00 AST 18 U/L (0-48) 12/06/19 12:00 ALT 17 U/L (19-67) L 12/06/19 12:00 Alkaline Phosphatase 76 U/L (50-170) 12/06/19 12:00 Troponin I Less than 0.017 ng/mL (0.00-0.10) 12/06/19 12:00 B-Natriuretic Peptide 8136 pg/mL (5-650) H 12/06/19 12:00 Total Protein 5.9 gm/dL (6.2-8.2) L 12/06/19 12:00 Albumin 2.9 gm/dl (3.4-5.0) L 12/06/19 12:00 Urine Color Yellow 12/06/19 13:03 Urine Appearance Clear (CLEAR) 12/06/19 13:03 Urine pH 7.0 pH (5.0-7.0) 12/06/19 13:03 Ur Specific [place] 1.020 SP.GR. (1.005-1.030) 12/06/19 13:03 Urine Protein Negative mg/dL (NEGATIVE) 12/06/19 13:03 Urine Glucose (UA) Negative mg/dL (NEGATIVE) 12/06/19 13:03 Urine Ketones Negative mg/dL (NEGATIVE) 12/06/19 13:03 Urine Blood Negative /ul (NEGATIVE) 12/06/19 13:03 Urine Nitrate Negative (NEGATIVE) 12/06/19 13:03 Urine Bilirubin Negative mg/dl (NEGATIVE) 12/06/19 13:03 Urine Urobilinogen Normal EU/dl (NORMAL) 12/06/19 13:03 Ur Leukocyte Esterase Negative /ul (NEGATIVE) 12/06/19 13:03 Urine RBC None seen /hpf (0-5) 12/06/19 13:03 Urine WBC None seen /hpf (0-5) 12/06/19 13:03 Ur Epithelial Cells Trace /hpf (0-5) 12/06/19 13:03 Urine Bacteria None seen (NONE) 12/06/19 13:03 Urine Culture Comments No culture indicated 12/06/19 13:03 Assessment/Plan - Narrative Narrative: Carson was admitted today for dizziness whenever he stands up and weakness and was found to be orthostatic in the emergency room. He was given 1 L of IV fluids but he remained orthostatic and BNP came back at 8000. On examination the patient is not in any acute congestive heart failure at present and we will restart IV fluids at 125 mL/min. His orthostasis is likely volume related as well as med induced. Will recheck orthostatic vital signs again in the morning. Will refer to PT in the morning. - Assessment/Plan (1) Weakness with dizziness Problem: Acute (2) Orthostatic hypotension Problem: Acute (3) Pancytopenia Problem: Acute (4) Chronic renal failure Problem: Chronic Qualifiers: Chronic kidney disease stage: stage 3 (moderate) Qualified Code(s): N18.3 - Chronic kidney disease, stage 3 (moderate) (5) Chronic obstructive pulmonary disease Problem: Chronic Qualifiers: COPD type: unspecified COPD Qualified Code(s): J44.9 - Chronic obstructive pulmonary disease, unspecified (6) CAD (coronary artery disease) Problem: Chronic Qualifiers: Coronary Disease-Associated Artery/Lesion type: bypass graft [place] vs. transplanted heart: [place] heart Associated angina: without angina Qualified Code(s): I25.810 - Atherosclerosis of coronary artery bypass graft(s) without angina pectoris (7) Paroxysmal atrial fibrillation Problem: Chronic (8) Essential hypertension Problem: Chronic (9) Hyperlipidemia Problem: Chronic Qualifiers: Hyperlipidemia type: mixed hyperlipidemia Qualified Code(s): E78.2 - Mixed hyperlipidemia (10) Multiple myeloma Assessment: In remission Problem: Chronic Qualifiers: Multiple myeloma remission status: unspecified Qualified Code(s): C90.00 - Multiple myeloma not having achieved remission
[2019-12-06] MEDS ORDERED: METHOCARBAMOL 500 MG TABLET PO PRN (17:38)
[2019-12-06] MEDS ORDERED: MECLIZINE HCL 25 MG TABLET PO PRN (17:38)
[2019-12-06] MEDS ORDERED: NITROGLYCERIN 0.4 MG/TAB BTL SL PRN (17:38)
[2019-12-06] MEDS: POTASSIUM CHLORIDE 10 MEQ in NORMAL SALINE 1,000 ML IV SCH (19:56)
[2019-12-06] MEDS: CALCIUM CARBONATE 500 MG TAB.CHEW PO SCH (20:42)
[2019-12-06] MEDS: ACYCLOVIR 200 MG CAPSULE PO SCH (20:43)
[2019-12-06] MEDS ORDERED: MULTIVIT-MIN/FA/LYCOPEN/LUTEIN 1 TAB TABLET PO SCH (21:00)
[2019-12-06] MEDS ORDERED: FAMOTIDINE 20 MG TABLET PO SCH (21:00)
[2019-12-06] MEDS ORDERED: PANTOPRAZOLE SODIUM 40 MG TABLET.EC PO SCH (21:00)
[2019-12-07] MEDS: POTASSIUM CHLORIDE 10 MEQ in NORMAL SALINE 1,000 ML IV SCH ×2 (04:29→15:59)
[2019-12-07] MEDS ORDERED: PANTOPRAZOLE SODIUM 40 MG TABLET.EC PO SCH (07:00)
[2019-12-07] MEDS: ACYCLOVIR 200 MG CAPSULE PO SCH (08:01)
[2019-12-07] MEDS: CALCIUM CARBONATE 500 MG TAB.CHEW PO SCH (08:01)
[2019-12-07] MEDS ORDERED: CHOLECALCIFEROL 5,000 UNIT TABLET PO SCH (09:00)
[2019-12-07] MEDS ORDERED: LACTOBACILLUS ACIDOPHILUS 1 EACH CAPSULE PO SCH (09:00)
[2019-12-07] MEDS ORDERED: MULTIVIT-MIN/FA/LYCOPEN/LUTEIN 1 TAB TABLET PO SCH (09:00)
[2019-12-07] MEDS ORDERED: ISOSORBIDE MONONITRATE 30 MG TAB.SR.24H PO SCH (09:00)
[2019-12-07] MEDS ORDERED: ASPIRIN 81 MG TABLET.DR PO SCH (09:00)
[2019-12-07] MEDS ORDERED: METOPROLOL SUCCINATE 25 MG TABLET.SA PO SCH (09:00)
[2019-12-07] MEDS ORDERED: LISINOPRIL 20 MG TABLET PO SCH (09:00)
--- NOTE | 2019-12-07 09:17 | DS ---
(1) Weakness with dizziness Problem: Acute (2) Orthostatic hypotension Problem: Acute (3) Pancytopenia Problem: Acute (4) Chronic renal failure Problem: Chronic Qualifiers: Chronic kidney disease stage: stage 3 (moderate) Qualified Code(s): N18.3 - Chronic kidney disease, stage 3 (moderate) (5) Chronic obstructive pulmonary disease Problem: Chronic Qualifiers: COPD type: unspecified COPD Qualified Code(s): J44.9 - Chronic obstructive pulmonary disease, unspecified (6) CAD (coronary artery disease) Problem: Chronic Qualifiers: Coronary Disease-Associated Artery/Lesion type: bypass graft [place] vs. transplanted heart: [place] heart Associated angina: without angina Qualified Code(s): I25.810 - Atherosclerosis of coronary artery bypass graft(s) without angina pectoris (7) Paroxysmal atrial fibrillation Problem: Chronic (8) Essential hypertension Problem: Chronic (9) Hyperlipidemia Problem: Chronic Qualifiers: Hyperlipidemia type: mixed hyperlipidemia Qualified Code(s): E78.2 - Mixed hyperlipidemia (10) Multiple myeloma Problem: Chronic Qualifiers: Multiple myeloma remission status: unspecified Qualified Code(s): C90.00 - Multiple myeloma not having achieved remission Date of Discharge:: 12/07/19 Hospital Course: Carson Bajwa is an 84-year-old white male with past medical history of multiple myeloma in remission, chronic renal failure, hypertension, hyperlipidemia, coronary artery disease status post CABG, who was admitted on 12/06/2019 because of dizziness, weakness. The patient says that he has been having diarrhea a few times in the past few days. He was started on Ninlaro to prevent recurrence of MM and one of its serious adverse reaction is severe diarrhea. He denies any nausea, vomiting, abdominal pain, constipation, chest pain, vertigo. As he was going down the stairs the patient started having extreme dizziness more than his usual and felt weak. He called his to assist him. She thought he was having a stroke and so she brought her to our emergency room. In the emergency room the patient was found to be orthostatic and had no neurological deficit. He was given 1 L of IV fluids but when his labs came back his BNP was elevated at 8000. His chest x-ray showed no acute cardiopulmonary findings except for chronic changes. Repeat orthostatic vital signs were still positive and so he was admitted for observation. When seen on the floor the patient was awake alert oriented x3 and not orthopneic, no JVD and trace edema, . We started him back on IVF at 125 ml/hour. I told him that he likely has autonomic failure ( he has had this for some time already) and volume ( diarrhea and anemia, diuretic as well as other meds) as etiologies of his orthostasis. He has received volume repletion but still remains orthostatic. He was told that he needs to wear compression stocking, and change positions slowlynd in stages, and do handgrips, or cross legs before standing. We will defer from starting him on fludrocortisone as he has elevated BNP or midodrine as he has supine hypertension for now. PT has worked with him this morning and he was able to walk 60 feet and is back to his baseline. He is stiil orthostatic on his vital signs but clinically asymptomatic. He can be discharged today and follow up with his PCP in 1 week. Procedures Performed: none Results and Findings: Lab Pending Results 12/06/19 12:00: WBC 3.2 L, RBC 3.73 L, Hgb 9.7 L, Hct 30.8 L, MCV 82.6, MCH 26.0 L, MCHC 31.5 L, RDW 16.7 H, Plt Count 89 L, MPV 10.7, Neutrophils % (Manual) 71, Band Neuts % (Manual) 13 H, Lymphocytes % (Manual) 5 L, Monocytes % (Manual) 6, Eosinophils % (Manual) 1, Immature Granulocytes 4 H, Neutrophils # (Manual) 2.3, Lymphocytes # (Manual) 0.2 L, Monocytes # (Manual) 0.2, Eosinophils # (Manual) 0.0, Elliptocytes 1+ 12/06/19 12:00: Sodium 139, Plasma Sodium 140, Potassium 3.8, Chloride 108 H, Carbon Dioxide 28.6, Anion Gap 6.2 L, BUN 21, Creatinine 1.80 H D, Est GFR (Non- Af Amer) 39 L D, BUN/Creatinine Ratio 11.7, Random Glucose 145 H, Calcium 8.1, Calcium Adj for Albumin 8.7, Total Bilirubin 0.2, AST 18, ALT 17 L, Alkaline Phosphatase 76, Troponin I Less than 0.017, B-Natriuretic Peptide 8136 H, Total Protein 5.9 L, Albumin 2.9 L 12/06/19 13:03: Urine Color Yellow, Urine Appearance Clear, Urine pH 7.0, Ur Specific [place] 1.020, Urine Protein Negative, Urine Glucose (UA) Negative, Urine Ketones Negative, Urine Blood Negative, Urine Nitrate Negative, Urine Bilirubin Negative, Urine Urobilinogen Normal, Ur Leukocyte Esterase Negative, Urine RBC None seen, Urine WBC None seen, Ur Epithelial Cells Trace, Urine Bacteria None seen, Urine Culture Comments No culture indicated Discharge Location: Home Disposition: Home self-care Condition: Stable Discharge Activity: Activity as tolerated Discharge Diet: General/regular food Referrals: Natanael Penaloza DO [Primary Care Provider] - Complete Home Medications List: Complete Home Medication List: Aspirin [Aspirin Enteric Coated] 81 mg PO DAILY 11/04/16 Cholecalciferol (Vitamin D3) [Vitamin D3] 5,000 unit PO DAILY 02/25/17 lactobacillus combination no.9 4 billion cell capsule 4,000 mmu cells PO DAILY 08/09/18 zvqlnlpv-zfj-cavfg acid 300 mcg-lycopene 600 mcg-lutein 300 mcg tablet 1 tab PO DAILY 08/09/18 rivaroxaban 20 mg tablet 20 mg PO DAILY 10/10/18 furosemide 20 mg tablet 20 mg PO DAILY 12/01/18 lisinopril 40 mg tablet 20 mg PO DAILY 02/06/19 metoprolol succinate 50 mg tablet,extended release 24 hr 25 mg PO DAILY 02/06/19 acyclovir 400 mg tablet 400 mg PO BID 02/21/19 famotidine 20 mg tablet 20 mg PO HS 02/21/19 Isosorbide Mononitrate [Imdur] 30 mg PO DAILY 05/12/19 calcium carbonate 600 mg calcium (1,500 mg) tablet 600 mg PO BID tab 06/13/19 nitroglycerin 0.4 mg sublingual tablet 0.4 mg SL Q5M PRN #30 tab 08/16/19 methocarbamol 500 mg tablet 500 mg PO TID PRN #30 tab 10/23/19 omeprazole 40 mg capsule,delayed release 40 mg PO DAILY #90 cap 12/04/19 DULoxetine HCL [Cymbalta] 30 mg PO HS 12/06/19 Dexamethasone [Decadron] 4 mg PO .Q 4 WEEKS 12/06/19 Meclizine HCl [Wal-Dram 2] 20 mg PO BID PRN 12/06/19
[2019-12-07 15:57] VITALS: BP 128/63
[2019-12-07] MEDS ORDERED: RIVAROXABAN 20 MG TABLET PO SCH (21:00)
[2019-12-20] MEDS ORDERED: DEXAMETHASONE 4 MG TABLET PO SCH (09:00)
== END 2019-12-07 14:30 | disposition home or self-care (01) ==
LOC: ER 11:28 → MS 11:28
PROVIDERS: ADMIT Internal Medicine; ATTEND Family Medicine
DX: I50.9 Heart failure, unspecified; K52.1 Toxic gastroenteritis and colitis; R53.1 Weakness; I13.0 Hypertensive heart and chronic kidney disease with heart failure and stage 1 through stage 4 chronic kidney disease, or unspecified chronic kidney disease; T45.1X5A Adverse effect of antineoplastic and immunosuppressive drugs, initial encounter; I25.810 Atherosclerosis of coronary artery bypass graft(s) without angina pectoris; E78.2 Mixed hyperlipidemia; D61.818 Other pancytopenia; C90.01 Multiple myeloma in remission; I48.0 Paroxysmal atrial fibrillation; I95.1 Orthostatic hypotension; N18.3 Chronic kidney disease, stage 3 (moderate); R42 Dizziness and giddiness; J44.9 Chronic obstructive pulmonary disease, unspecified
CPT/HCPCS: 36415; 71020; 71046; 80053; 81001; 83519; 83880; 84484; 85025; 93005; 96365; 96366; 97161; 99285; G0378

== ENCOUNTER 2020-01-12 14:28 | Observation (INO) ==
[2020-01-12 15:06] LABS: Hematocrit 29.2 % (42.0-52.0); Hemoglobin 9.2 gm/dL (13.5-18.0); Mean Cell Volume 81.6 fl (78-100); Mean Corpuscular Hemoglobin 25.7 pg (27-31); Mean Corpuscular Hgb Conc 31.5 g/dl (32-36); Neutrophil # 1.6 K/mm3 (1.3-6.0); Neutrophil % 66.3 % (42-75.0); Red Blood Count 3.58 M/mm3 (4.7-6.0); Red Cell Distribution Width 17.3 % (11.5-14.0); White Blood Count 2.3 K/mm3 (4.0-10.5)
[2020-01-12 15:09] LABS: Mean Platelet Volume 10.3 fl (8-11.3)
[2020-01-12 15:10] LABS: Platelet Count 71 K/mm3 (150-450)
[2020-01-12] MEDS ORDERED: NORMAL SALINE 1,000 ML IV ONE ×2 (15:20→16:54)
[2020-01-12 15:22] LABS: ALT 42 U/L (19-67); AST 43 U/L (0-48); Albumin * 2.9 gm/dl (3.4-5.0); Alkaline Phosphatase * 72 U/L (50-170); Anion Gap 9.5 mmol/L (6.8-13.8); Bilirubin, Total 0.3 mg/dL (0.0-1.1); Blood Urea Nitrogen 27 mg/dL (6-23); Ca. Corrected For Albumin 8.9 mg/dL (8.4-10.2); Calcium * 8.3 mg/dL (7.9-10.9); Carbon Dioxide 27.8 mmol/L (24-32.6); Chloride 107 mmol/L (97-106); Glucose * 103 mg/dL (70-110); Potassium 4.3 mmol/L (3.4-4.6); Sodium 140 mmol/L (132-142); Total Protein 5.9 gm/dL (6.2-8.2)
[2020-01-12 15:23] LABS: Troponin I Less than 0.017 ng/mL (0.00-0.10)
--- NOTE | 2020-01-12 17:02 | ERNOTE ---
Syncope ER HPI Date of Service: 01/12/20 Stated Complaint: syncopal episode Time Seen by Provider: 01/12/20 14:42 Source: patient, family Exam Limitations: no limitations Immunizations: IMMUNIZATION HX Immunizations Up to Date Yes History of Influenza Vaccine Yes Hx Pneumococcal Vaccination No Allergies/Adverse Reactions: Allergies Sulfa (Sulfonamide Antibiotics) Allergy (Intermediate, Verified 01/12/20 14:34) Hives atorvastatin calcium [From Lipitor] Allergy (Unknown, Verified 01/12/20 14:34) Muscle Pain [id number]-Akq Reductase Inhibitor Allergy (Unknown, Verified 01/12/20 14:34) legs get weak and he can't walk Home Medications: HOME MEDICATIONS Aspirin [Aspirin Enteric Coated] 81 mg PO DAILY 11/04/16 [Last Taken Unknown] Cholecalciferol (Vitamin D3) [Vitamin D3] 5,000 unit PO DAILY 02/25/17 [Last Taken Unknown] lactobacillus combination no.9 4 billion cell capsule 4,000 mmu cells PO DAILY 08/09/18 [Last Taken Unknown] xucbryvs-htr-ciwxy acid 300 mcg-lycopene 600 mcg-lutein 300 mcg tablet 1 tab PO DAILY 08/09/18 [Last Taken Unknown] furosemide 20 mg tablet 20 mg PO DAILY 12/01/18 [Last Taken Unknown] lisinopril 40 mg tablet 20 mg PO DAILY 02/06/19 [Last Taken Unknown] metoprolol succinate 50 mg tablet,extended release 24 hr 25 mg PO DAILY 02/06/19 [Last Taken Unknown] famotidine 20 mg tablet 20 mg PO HS 02/21/19 [Last Taken Unknown] Isosorbide Mononitrate [Imdur] 30 mg PO DAILY 05/12/19 [Last Taken Unknown] calcium carbonate 600 mg calcium (1,500 mg) tablet 600 mg PO BID tab 06/13/19 [Last Taken Unknown] nitroglycerin 0.4 mg sublingual tablet 0.4 mg SL Q5M PRN #30 tab 08/16/19 [Last Taken Unknown] DULoxetine HCL [Cymbalta] 30 mg PO HS 12/06/19 [Last Taken Unknown] Meclizine HCl [Wal-Dram 2] 20 mg PO BID PRN 12/06/19 [Last Taken Unknown] methocarbamol 500 mg tablet 500 mg PO TID PRN #30 tab 12/11/19 [Last Taken Unknown] Acyclovir [Zovirax] 400 mg PO BID 01/04/20 [Last Taken Unknown] Dexamethasone [Decadron] 4 mg PO PRN 01/04/20 [Last Taken Unknown] Omeprazole 40 mg PO DAILY 01/04/20 [Last Taken Unknown] Rivaroxaban [Xarelto] 20 mg PO DAILY 01/04/20 [Last Taken Unknown] - History of Present Illness Narrative: Patient presents to the ED for head injury after a syncopal episode. He has a history of recurrent syncopal episodes. He has orthostatic hypotension. Today fell backwards in the kitchen when he passed out and hit his head on the linoleum. EMS brought him in. No acute N/T/W. No fever or other recent illness. Had cardiac stents several weeks ago. Had recent hospitalization at [facility] and saw neurology but no new recommendations for his orthostatic hypotension. Denies extremity pain from the fall. Prior Episodes: Present: single episode today Symptoms prior to episode: Present: light headedness Activity at time of episode: Present: standing Character of event: Present: no loss of consciousness, brief (seconds) Location of Injury: Present: head Current Symptoms: Present: back to normal Prior Treament: Reports: recently seen, similar symptoms before Review of Systems - Review of Systems Constitutional: Absent: fever ENT: Absent: sore throat Respiratory: Absent: shortness of breath Cardiology: Absent: chest pain Gastrointestinal/Abdominal: Absent: abdominal pain Genitourinary: Absent: dysuria Musculoskeletal: Present: See HPI Skin: Present: other - no laceration Neurological: Absent: headache All Other Systems: All systems neg except as marked Medical History (Last Reviewed 01/12/20 @ 17:57 by Troy Bagley MD) Hip fracture, left (Acute) Onset Date: ~06/2018 HTN (hypertension) (Chronic) Onset Date: Unknown Hyperlipidemia (Chronic) Onset Date: Unknown GERD (gastroesophageal reflux disease) (Chronic) Onset Date: Unknown CAD (coronary artery disease) (Chronic) Onset Date: Unknown 10 stents placed Chest discomfort (Acute) Back pain (Acute) Pneumonia (Acute) Coronary artery disease (Chronic) Hypertension (Chronic) Acute on chronic renal failure (Acute) Dehydration (Acute) Degenerative disc disease, lumbar (Acute) Intractable low back pain (Acute) 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, multiple vessel (Chronic) Chest pain (Acute) Dehydration (Acute) Abdominal pain (Acute) Head injury (Acute) Skin tear of elbow without complication (Acute) Fall (Acute) Orthostatic hypotension (Acute) Contusion of hip, left (Acute) Shoulder pain, right (Acute) Right-sided nosebleed (Acute) Aortic regurgitation Onset Date: 12/23/12 Mild Atrial fibrillation Onset Date: Unknown Cancer Onset Date: ~2010 Removed lump behind Rt ear DJD (degenerative joint disease) Onset Date: Unknown Degenerative joint disease of knee Onset Date: 11/02/12 Gastric ulcer Onset Date: 11/03/92 Hydrocele Onset Date: 04/23/98 Rt (spermatocele) Intraductal papillary mucinous neoplasm Onset Date: Unknown Loose body in knee Onset Date: 11/02/12 Not symptomatic Multiple myeloma Onset Date: ~09/25/16 Multiple myeloma Onset Date: 09/22/16 Myocardial infarction Onset Date: 09/18/16 PUD (peptic ulcer disease) Onset Date: Unknown Peripheral neuropathy Onset Date: Unknown Pneumonia Onset Date: 07/08/98 Pseudoaneurysm of right femoral artery Onset Date: Unknown Shoulder pain Onset Date: Unknown Spermatocele Onset Date: Unknown Spinal stenosis Onset Date: Unknown Stasis dermatitis of both legs Onset Date: 07/14/96 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 Closed reduction, cephalo-medullary fixation left intertrochanteric femur fracture S/P CABG x 3 (Acute) Hx of heart artery stent 9 stents Hx of tonsillectomy Onset Date: ~1943 hx dog bite--surgery to clean Onset Date: Unknown Breast cyst removal Onset Date: ~1957 Lt breast History of back surgery Onset Date: ~01/2015 Brenden L1, L2, L3 Kasi-laminectomy and brenden L1, L2, L3-4 partial facetectomy. History of bone marrow biopsy Onset Date: 01/28/17 History of cancer surgery Onset Date: ~07/2010 Skin cancer removed behind Rt ear History of esophagogastroduodenoscopy (EGD) Onset Date: ~1994 1990, 1992, 1993, 1994 Hx of CABG Onset Date: 09/28/16 [facility] [address] Rodriguez Hx of cardiac catheterization Onset Date: ~2011 2003, 2006, 2010, 2011 Hx of colonoscopy Onset Date: 06/13/182005. 06/13/18 Bagan-very capacious redundant colon. 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 Recheck 3 yrs. Hx of epidural steroid injection Onset Date: ~1996 1989, 1990, 1994, 1996 Lower epidural and cervical region Hx of shoulder surgery Onset Date: ~04/2010 Left shoulder labral repair with 2 opus suture anchors Stent Onset Date: ~2003May 2003, Jun 2003, Jan - 2 in LAD and 1 in diagnonal, 1 in circumflex, 3 in RCA, 2, 1 in main artery. Family History: Family History (Last Reviewed 01/12/20 @ 17:57 by Troy Bagley MD) Father , age 87-old age Heart disease Mother , age 63-unsure of cause Enlarged heart Sister , x2 Cancer Lung Hx of right mastectomy History of colon surgery COPD (chronic obstructive pulmonary disease) Brother Parkinson disease Dementia Sister Obesity Social History: (Last Reviewed 01/12/20 @ 17:58 by Troy Bagley MD) Social History: Marital status: household members: spouse number of children: 2 current occupational status: retired Highest education level completed: high school graduate Service: No Tobacco: Smoking Status: Never smoker Alcohol: alcohol intake: current details: Some day - social Substance Use: substance use type: does not use Dietary Habits: caffeine: Yes caffeine comment: Some day - occasional pop Personal Safety: victim of physical abuse: No victim of emotional abuse: No Physical Exam - Physical Exam General Appearance: Present: alert, no apparent distress Head Exam: Present: other - tenderness occiput, small hematoma seems present. Absent: Glass's Sign, raccoon eyes Eye Exam: Normal inspection: bilateral, PERRL: bilateral Ears, Nose, Throat: Present: normal ENT inspection Neck: Present: normal inspection, other - Upper praspinal muscules tender, No locaizing point vertebral tenderness. No cliniacl suggestion of fracture or ligamentous injury, cleared after CT. Respiratory: Present: no respiratory distress, normal breath sounds, no accessory muscle use, lungs clear Cardiovascular/Chest: Present: regular rate, rhythm, normal peripheral pulses Gastrointestinal/Abdominal: Present: normal bowel sounds, nontender, nondistended, soft Back Exam: Present: no vertebral tenderness Extremity Exam: Present: non-tender, normal range of motion Neurological Exam: Present: alert, no motor/sensory deficits Skin Exam: Present: normal color, warm/dry Progress - Results and Orders Patient's Lab Results:: I have reviewed the patient's lab results. - Vital Signs Patient's Vital Signs:: I have reviewed the patient's vital signs. Vital Signs: Vital Signs 01/12/20 14:29 01/12/20 14:39 01/12/20 15:18 Temperature 37.3 C Pulse Rate 69 69 70 Respiratory Rate 19 16 Blood Pressure 118/61 O2 Sat by Pulse Oximetry 95 95 01/12/20 15:55 01/12/20 16:30 01/12/20 16:45 Temperature Pulse Rate 67 68 69 Respiratory Rate 16 13 16 Blood Pressure 145/71 165/78 H 155/74 H O2 Sat by Pulse Oximetry 96 97 96 - EKG EKG #1 EKG: NSR EKG read: Interp. by me EKG Comments: NSR rate 66. Non-specific ST/T wave changes, no STMEI noted. - CT/Ultrasound CT/Ultrasound Narrative: I reviewed official radiology report for CT head and C-spine - Progress/Reassessment Chief Complaint: Syncopal Episode Progress Note-Subjective: 01/12/20 18:01 Patient orthostatic here. Given IV fluids. No injury from the syncope requiring specific treatment. After IV fluids he was still too lightheaded with standing to safely go home. [place] take care of him in the state. I spoke with Dr Arguelles who will admit. Departure Clinical Impression: Fall, Head injury, Orthostatic hypotension, Syncope, Gait instability - Departure Disposition: Still a patient Condition: Fair
[2020-01-12] MEDS ORDERED: ACETAMINOPHEN 500 MG TABLET PO PRN (20:10)
[2020-01-12] MEDS ORDERED: NITROGLYCERIN 0.4 MG/TAB BTL SL PRN (20:11)
[2020-01-12] MEDS ORDERED: MECLIZINE HCL 25 MG TABLET PO PRN (20:11)
[2020-01-12] MEDS ORDERED: METHOCARBAMOL 500 MG TABLET PO PRN (20:11)
[2020-01-12] MEDS ORDERED: DEXAMETHASONE 4 MG TABLET PO SCH (20:15)
--- NOTE | 2020-01-12 20:36 | HP ---
Chief Complaint - Chief Complaint Date of Service: 01/12/20 Time of Service: 20:24 Chief Complaint: I got dizzy and fell today History of Present Illness: 84-year-old male with past medical history of atrial fibrillation, hypertension, CAD, old [place], mild multiple myeloma, hyperlipidemia, degenerative joint disease, chronic kidney disease stage III, GERD, was evaluated in the ER for syncopal episode that occurred in the patient's home earlier today. Patient has been seen multiple times in the ER for similar symptoms in the recent past. The last episode occurred a little over a week ago when the patient fell and was discovered to have orthostatic hypotension, the patient was hospitalized and treated with 2 L of fluid which stabilize his blood pressure. Shortly after that he returned for another episode was subsequently transferred to [place] where he was evaluated and underwent extensive work-up that included a EEG but no major changes were made to his management. Earlier today the patient attempted to rise from his scalp to deliver only walk to his kitchen without his walker and upon arriving to his kitchen when his is standing his eyes rolled back and he fell backwards onto his head. Patient developed a hematoma but there were no signs of bleeding or lacerations. denied witnessing any seizure activities or major loss of consciousness. When asked the patient says he falls because he has issues with his balance but is also suspected that he is orthostatic hypotension plays a role in these episodes. Patient has an history of multiple myeloma and is currently under the care of her oncologist who is treating him with oral chemotherapeutic drugs but he is unable to say whether or not the symptoms started once he started that treatment. The only thing he attributes to the medications is a diffuse erythematous maculopapular rash all over his body. Patient's condition appears to improve once treated with IV fluids therefore recommendation to keep him overnight for hydration was made. Medical History (Last Reviewed 01/12/20 @ 19:02 by Ana Maria Acharya RN) Hip fracture, left (Acute) Onset Date: ~06/2018 HTN (hypertension) (Chronic) Onset Date: Unknown Hyperlipidemia (Chronic) Onset Date: Unknown GERD (gastroesophageal reflux disease) (Chronic) Onset Date: Unknown CAD (coronary artery disease) (Chronic) Onset Date: Unknown 10 stents placed Chest discomfort (Acute) Back pain (Acute) Pneumonia (Acute) Coronary artery disease (Chronic) Hypertension (Chronic) Acute on chronic renal failure (Acute) Dehydration (Acute) Degenerative disc disease, lumbar (Acute) Intractable low back pain (Acute) 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, multiple vessel (Chronic) Chest pain (Acute) Dehydration (Acute) Abdominal pain (Acute) Head injury (Acute) Skin tear of elbow without complication (Acute) Fall (Acute) Orthostatic hypotension (Acute) Contusion of hip, left (Acute) Shoulder pain, right (Acute) Right-sided nosebleed (Acute) Aortic regurgitation Onset Date: 12/23/12 Mild Atrial fibrillation Onset Date: Unknown Cancer Onset Date: ~2010 Removed lump behind Rt ear DJD (degenerative joint disease) Onset Date: Unknown Degenerative joint disease of knee Onset Date: 11/02/12 Gastric ulcer Onset Date: 11/03/92 Hydrocele Onset Date: 04/23/98 Rt (spermatocele) Intraductal papillary mucinous neoplasm Onset Date: Unknown Loose body in knee Onset Date: 11/02/12 Not symptomatic Multiple myeloma Onset Date: ~09/25/16 Multiple myeloma Onset Date: 09/22/16 Myocardial infarction Onset Date: 09/18/16 PUD (peptic ulcer disease) Onset Date: Unknown Peripheral neuropathy Onset Date: Unknown Pneumonia Onset Date: 07/08/98 Pseudoaneurysm of right femoral artery Onset Date: Unknown Shoulder pain Onset Date: Unknown Spermatocele Onset Date: Unknown Spinal stenosis Onset Date: Unknown Stasis dermatitis of both legs Onset Date: 07/14/96 Steroid myopathy Onset Date: Unknown Tracheal mass Onset Date: Unknown Arthritis Onset Date: Unknown Chronic renal failure Onset Date: Unknown Surgical History: Surgical History (Last Reviewed 01/12/20 @ 19:02 by Ana Maria Acharya RN) Status post hip surgery (Acute) Onset Date: ~07/07/18 1. Closed reduction, cephalo-medullary fixation left intertrochanteric femur fracture S/P CABG x 3 (Acute) Hx of heart artery stent 9 stents Hx of tonsillectomy Onset Date: ~1943 hx dog bite--surgery to clean Onset Date: Unknown Breast cyst removal Onset Date: ~1957 Lt breast History of back surgery Onset Date: ~01/2015 Brenden L1, L2, L3 Kasi-laminectomy and brenden L1, L2, L3-4 partial facetectomy. History of bone marrow biopsy Onset Date: 01/28/17 History of cancer surgery Onset Date: ~07/2010 Skin cancer removed behind Rt ear History of esophagogastroduodenoscopy (EGD) Onset Date: ~1994 1990, 1992, 1993, 1994 Hx of CABG Onset Date: 09/28/16 [facility] [address] Rodriguez Hx of cardiac catheterization Onset Date: ~2011 2003, 2006, 2010, 2011 Hx of colonoscopy Onset Date: 06/13/182005. 06/13/18 Bagan-very capacious redundant colon. 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 Recheck 3 yrs. Hx of epidural steroid injection Onset Date: ~1996 1989, 1990, 1994, 1996 Lower epidural and cervical region Hx of shoulder surgery Onset Date: ~04/2010 Left shoulder labral repair with 2 opus suture anchors Stent Onset Date: ~2003May 2003, Jun 2003, Jan - 2 in LAD and 1 in diagnonal, 1 in circumflex, 3 in RCA, 2, 1 in main artery. Family History: Family History (Last Reviewed 01/12/20 @ 19:03 by Ana Maria Acharya RN) Father , age 87-old age Heart disease Mother , age 63-unsure of cause Enlarged heart Sister , x2 Cancer Lung Hx of right mastectomy History of colon surgery COPD (chronic obstructive pulmonary disease) Brother Parkinson disease Dementia Sister Obesity Social History: (Last Reviewed 01/12/20 @ 19:03 by Ana Maria Acharya RN) Social History: Marital status: household members: spouse number of children: 2 current occupational status: retired Highest education level completed: high school graduate Service: No Tobacco: Smoking Status: Never smoker Alcohol: alcohol intake: current details: Some day - social Substance Use: substance use type: does not use Dietary Habits: caffeine: Yes caffeine comment: Some day - occasional pop Personal Safety: victim of physical abuse: No victim of emotional abuse: No Peds Patient Hx - Developmental: No Pertinent Hx Peds Patient Hx - Medical: No Pertinent Hx Peds Patient Hx - Cardiac/Respiratory: No Pertinent Hx Peds Patient Hx - Surgical: No Surgical History Patient History - Cancer: No Hx of Cancer Review Of Systems (GEN) - Review of Systems Generalized/Overall Review: Present: No Symptoms Reported EENTM: Present: No Symptoms Reported Respiratory: Present: No Symptoms Reported Cardiac: Present: No Symptoms Reported Abdominal: Present: No Symptoms Reported Genitourinary: Present: No Symptoms Reported Musculoskeletal: Present: No Symptoms Reported Neurological: Present: Pre-existing Deficit, Other - Issues with balance Skin: Present: Rash - Diffuse erythematous maculopapular rash Endocrine: Present: No Symptoms Reported Immunizations: IMMUNIZATION HX Immunizations Up to Date Yes History of Influenza Vaccine Yes Hx Pneumococcal Vaccination No Allergies/Adverse Reactions: Allergies Allergy/AdvReac Type Severity Reaction Status Date / Time Sulfa (Sulfonamide Allergy Intermediate Hives Verified 01/12/20 14:34 Antibiotics) atorvastatin calcium Allergy Unknown Muscle Pain Verified 01/12/20 14:34 [From Lipitor] Lqljnrw-Mmz-Fei Reductase Allergy Unknown legs get Verified 01/12/20 14:34 Inhibitor weak and he can't walk Home Medications: HOME MEDICATIONS Aspirin [Aspirin Enteric Coated] 81 mg PO DAILY 11/04/16 [Last Taken Unknown] Cholecalciferol (Vitamin D3) [Vitamin D3] 5,000 unit PO DAILY 02/25/17 [Last Taken Unknown] lactobacillus combination no.9 4 billion cell capsule 4,000 mmu cells PO DAILY 08/09/18 [Last Taken Unknown] inwztvcm-ngi-uhtpp acid 300 mcg-lycopene 600 mcg-lutein 300 mcg tablet 1 tab PO DAILY 08/09/18 [Last Taken Unknown] furosemide 20 mg tablet 20 mg PO DAILY 12/01/18 [Last Taken Unknown] lisinopril 40 mg tablet 20 mg PO DAILY 02/06/19 [Last Taken Unknown] metoprolol succinate 50 mg tablet,extended release 24 hr 50 mg PO DAILY 02/06/19 [Last Taken Unknown] famotidine 20 mg tablet 20 mg PO HS 02/21/19 [Last Taken Unknown] Isosorbide Mononitrate [Imdur] 30 mg PO DAILY 05/12/19 [Last Taken Unknown] calcium carbonate 600 mg calcium (1,500 mg) tablet 600 mg PO BID tab 06/13/19 [Last Taken Unknown] nitroglycerin 0.4 mg sublingual tablet 0.4 mg SL Q5M PRN #30 tab 08/16/19 [Last Taken Unknown] DULoxetine HCL [Cymbalta] 30 mg PO HS 12/06/19 [Last Taken Unknown] Meclizine HCl [Wal-Dram 2] 20 mg PO BID PRN 12/06/19 [Last Taken Unknown] methocarbamol 500 mg tablet 500 mg PO TID PRN #30 tab 12/11/19 [Last Taken Unknown] Acyclovir [Zovirax] 400 mg PO BID 01/04/20 [Last Taken Unknown] Dexamethasone [Decadron] 4 mg PO PRN 01/04/20 [Last Taken Unknown] Omeprazole 40 mg PO DAILY 01/04/20 [Last Taken Unknown] Rivaroxaban [Xarelto] 20 mg PO DAILY 01/04/20 [Last Taken Unknown] Exam - Exam Vital Signs: Vital Signs - Last Taken Temp 36.6 C 01/12/20 18:37 Pulse 65 01/12/20 18:37 Resp 20 01/12/20 18:37 BP 129/75 01/12/20 18:37 Pulse Ox 96 01/12/20 18:37 Constitutional: Present: Alert, Oriented x3, Cooperative, Well developed, Well nourished, No distress ENT Exam: Present: normal ENT inspection, hearing grossly normal, pharynx normal, TMs normal Eye Exam: bilateral eye: normal inspection, PERRL, EOMI Neck: Present: non-tender, full range of motion, supple, normal inspection, trachea midline Breasts: Present: Exam deferred Respiratory: Present: chest non-tender, lungs clear, normal breath sounds, no respiratory distress, no accessory muscle use Cardiovascular/Chest: Present: normal peripheral pulses, regular rate, rhythm, no chest tenderness, no edema, no gallop, no JVD, systolic murmur Peripheral Pulses: carotid (R): 3+, carotid (L): 3+, femoral (R): 3+, femoral (L): 3+, dorsalis-pedis (R): 3+, dorsalis-pedis (L): 3+ Abdomen: Present: Normal bowel sounds, soft, nontender, nondistended, no rebound tenderness, no hepatospenomegaly, no masses, obese /Rectal: Present: Exam deferred Extremity: Present: normal range of motion, non-tender, normal inspection, no pedal edema, no calf tenderness, normal capillary refill, pelvis stable Skin Exam: Present: skin rash Lymphatic: Present: no adenopathy Neurologic: Present: 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, no motor/sensory deficits, alert, normal mood/affect, oriented x 3 Appearance: Present: appropriate appearance, appropriate insight, neat, no memory impairment Eye contact: Present: cooperative, good eye contact, normal speech Thoughts: Present: normal thought pattern, no apparent hallucination Diagnostic Studies: Abnormal Lab Results 01/12/20 01/12/20 Range/Units 14:55 14:55 WBC 2.3 L (4.0-10.5) K/mm3 RBC 3.58 L (4.7-6.0) M/mm3 Hgb 9.2 L (13.5-18.0) gm/dL Hct 29.2 L (42.0-52.0) % MCH 25.7 L (27-31) pg MCHC 31.5 L (32-36) g/dl RDW 17.3 H (11.5-14.0) % Plt Count 71 L (150-450) K/mm3 Lymphocytes % 12.0 L (20-51) % Monocytes % 17.9 H (0.0-9) % Lymphocytes # 0.28 L (1.5-3.5) k/mm3 Chloride 107 H (97-106) mmol/L BUN 27 H (6-23) mg/dL Creatinine 2.07 H (0.4-1.4) mg/dL Est GFR (Non-Af Amer) 33 L (60-130) mL/min Total Protein 5.9 L (6.2-8.2) gm/dL Albumin 2.9 L (3.4-5.0) gm/dl Laboratory Results WBC 2.3 K/mm3 (4.0-10.5) L 01/12/20 14:55 RBC 3.58 M/mm3 (4.7-6.0) L 01/12/20 14:55 Hgb 9.2 gm/dL (13.5-18.0) L 01/12/20 14:55 Hct 29.2 % (42.0-52.0) L 01/12/20 14:55 MCV 81.6 fl (78-100) 01/12/20 14:55 MCH 25.7 pg (27-31) L 01/12/20 14:55 MCHC 31.5 g/dl (32-36) L 01/12/20 14:55 RDW 17.3 % (11.5-14.0) H 01/12/20 14:55 Plt Count 71 K/mm3 (150-450) L 01/12/20 14:55 MPV 10.3 fl (8-11.3) 01/12/20 14:55 Immature Gran % (Auto) 0.40 % (0.001-0.429) 01/12/20 14:55 Immature Gran # (Auto) 0.01 K/mm3 (0.000-0.0310) 01/12/20 14:55 Neutrophils % 66.3 % (42-75.0) 01/12/20 14:55 Lymphocytes % 12.0 % (20-51) L 01/12/20 14:55 Monocytes % 17.9 % (0.0-9) H 01/12/20 14:55 Eosinophils % 3.0 % (0.0-3.0) 01/12/20 14:55 Basophils % 0.4 % (0.0-1.0) 01/12/20 14:55 Nucleated RBC % 0.0 k/mm3 (0-1) 01/12/20 14:55 Neutrophils # 1.6 K/mm3 (1.3-6.0) 01/12/20 14:55 Lymphocytes # 0.28 k/mm3 (1.5-3.5) L 01/12/20 14:55 Monocytes # 0.4 k/mm3 (0.0-1.0) 01/12/20 14:55 Eosinophils # 0.1 k/mm3 (0.0-0.7) 01/12/20 14:55 Absolute Basophils 0.0 k/mm3 (0.0-0.1) 01/12/20 14:55 Sodium 140 mmol/L (132-142) 01/12/20 14:55 Plasma Sodium 140 mmol/L (130-142) 01/12/20 14:55 Potassium 4.3 mmol/L (3.4-4.6) 01/12/20 14:55 Chloride 107 mmol/L (97-106) H 01/12/20 14:55 Carbon Dioxide 27.8 mmol/L (24-32.6) 01/12/20 14:55 Anion Gap 9.5 mmol/L (6.8-13.8) 01/12/20 14:55 BUN 27 mg/dL (6-23) H 01/12/20 14:55 Creatinine 2.07 mg/dL (0.4-1.4) H 01/12/20 14:55 Est GFR (Non-Af Amer) 33 mL/min (60-130) L 01/12/20 14:55 BUN/Creatinine Ratio 13.0 (9.0-21.6) 01/12/20 14:55 Random Glucose 103 mg/dL (70-110) 01/12/20 14:55 Calcium 8.3 mg/dL (7.9-10.9) 01/12/20 14:55 Calcium Adj for Albumin 8.9 mg/dL (8.4-10.2) 01/12/20 14:55 Total Bilirubin 0.3 mg/dL (0.0-1.1) 01/12/20 14:55 AST 43 U/L (0-48) 01/12/20 14:55 ALT 42 U/L (19-67) 01/12/20 14:55 Alkaline Phosphatase 72 U/L (50-170) 01/12/20 14:55 Troponin I Less than 0.017 ng/mL (0.00-0.10) 01/12/20 14:55 Total Protein 5.9 gm/dL (6.2-8.2) L 01/12/20 14:55 Albumin 2.9 gm/dl (3.4-5.0) L 01/12/20 14:55 Assessment/Plan - Narrative Narrative: Patient was evaluated and medical chart was reviewed and decision to admit to observation on the [facility] floor for diagnosis of orthostatic hypotension and syncopal episode was made. Patient is resting comfortably and appears to be at his baseline state of consciousness, he denies any pain and does not present any signs of bleeding. At the moment he maintains stable vitals and has been placed on bedrest to avoid recurrence of falls. We will keep him overnight for monitoring with telemetry and treat him with IV hydration. - Assessment/Plan (1) Recurrent syncope Problem: Acute (2) Syncope Problem: Resolved Qualifiers: (3) CKD (chronic kidney disease) stage 3, GFR 30-59 ml/min Problem: Acute (4) Multiple myeloma Problem: Chronic Qualifiers: (5) Poor balance of body weight Problem: Acute (6) Pancytopenia Problem: Chronic
[2020-01-12] MEDS: CALCIUM CARBONATE 500 MG TAB.CHEW PO SCH (20:59)
[2020-01-12] MEDS: ACYCLOVIR 200 MG CAPSULE PO SCH (20:59)
[2020-01-12] MEDS ORDERED: FAMOTIDINE 20 MG TABLET PO SCH (21:00)
[2020-01-13] MEDS ORDERED: PANTOPRAZOLE SODIUM 40 MG TABLET.EC PO SCH (07:00)
[2020-01-13] MEDS: CALCIUM CARBONATE 500 MG TAB.CHEW PO SCH (08:56)
[2020-01-13] MEDS ORDERED: ASPIRIN 81 MG TABLET.DR PO SCH (09:00)
[2020-01-13] MEDS ORDERED: ISOSORBIDE MONONITRATE 30 MG TAB.SR.24H PO SCH (09:00)
[2020-01-13] MEDS ORDERED: FUROSEMIDE 20 MG TABLET PO SCH (09:00)
[2020-01-13] MEDS ORDERED: LISINOPRIL 40 MG TABLET PO SCH (09:00)
[2020-01-13] MEDS ORDERED: RIVAROXABAN 20 MG TABLET PO SCH (09:00)
[2020-01-13] MEDS ORDERED: METOPROLOL SUCCINATE 50 MG TABLET.SA PO SCH (09:00)
[2020-01-13] MEDS ORDERED: CHOLECALCIFEROL 5,000 UNIT TABLET PO SCH (09:00)
[2020-01-13] MEDS: ACYCLOVIR 200 MG CAPSULE PO SCH (09:00)
[2020-01-13] MEDS ORDERED: MULTIVIT-MIN/FA/LYCOPEN/LUTEIN 1 TAB TABLET PO SCH (09:00)
[2020-01-13] MEDS ORDERED: LISINOPRIL 20 MG TABLET PO SCH (09:00)
[2020-01-13] MEDS ORDERED: LACTOBACILLUS ACIDOPHILUS 1 EACH CAPSULE PO SCH (09:00)
--- NOTE | 2020-01-13 12:25 | DS ---
(1) Recurrent syncope Problem: Chronic (2) Syncope Problem: Resolved Qualifiers: (3) CKD (chronic kidney disease) stage 3, GFR 30-59 ml/min Problem: Chronic (4) Multiple myeloma Problem: Chronic Qualifiers: (5) Poor balance of body weight Problem: Chronic (6) Pancytopenia Problem: Chronic Date of Discharge:: 01/13/20 Hospital Course: 84-year-old male admitted for a syncopal episode that occurred in his home yesterday was evaluated at bedside and was found to be afebrile and in no acute distress. Patient's blood pressure has stabilized and his orthostatics have improved after he was treated with 2 L of IV saline. This morning he appea rs to be in good spirits and appears comfortable. He denies any further concerns and requests to go home. Given the patient's improvement decision to discharge him home with instructions to follow-up with his PCP on Wednesday was made. However was explained to patient that since these episodes have been recurrent and explanation has not been found he will need further follow-up and closer monitoring by his PCP. Fall precautions will also be necessary given his high fall risk, so he was instructed to ambulate with his walker to prevent further falls. Procedures Performed: none Results and Findings: Lab Pending Results 01/12/20 14:55: WBC 2.3 L, RBC 3.58 L, Hgb 9.2 L, Hct 29.2 L, MCV 81.6, MCH 25.7 L, MCHC 31.5 L, RDW 17.3 H, Plt Count 71 L, MPV 10.3, Immature Gran % (Auto) 0.40, Immature Gran # (Auto) 0.01, Neutrophils % 66.3, Lymphocytes % 12.0 L, Monocytes % 17.9 H, Eosinophils % 3.0, Basophils % 0.4, Nucleated RBC % 0.0, Neutrophils # 1.6, Lymphocytes # 0.28 L, Monocytes # 0.4, Eosinophils # 0.1, Absolute Basophils 0.0 01/12/20 14:55: Sodium 140, Plasma Sodium 140, Potassium 4.3, Chloride 107 H, Carbon Dioxide 27.8, Anion Gap 9.5, BUN 27 H, Creatinine 2.07 H, Est GFR (Non-Af Amer) 33 L, BUN/Creatinine Ratio 13.0, Random Glucose 103, Calcium 8.3, Calcium Adj for Albumin 8.9, Total Bilirubin 0.3, AST 43, ALT 42, Alkaline Phosphatase 72, Troponin I Less than 0.017, Total Protein 5.9 L, Albumin 2.9 L Discharge Location: Home Disposition: Home self-care Condition: Fair Face to Face Encounter completed per [facility] Guidelines: No Discharge Activity: Activity as tolerated Discharge Diet: General/regular food Referrals: Natanael Penaloza DO [Primary Care Provider] - Complete Home Medications List: Complete Home Medication List: Aspirin [Aspirin Enteric Coated] 81 mg PO DAILY 11/04/16 Cholecalciferol (Vitamin D3) [Vitamin D3] 5,000 unit PO DAILY 02/25/17 lactobacillus combination no.9 4 billion cell capsule 4,000 mmu cells PO DAILY 08/09/18 qepgnyzn-xez-ejolp acid 300 mcg-lycopene 600 mcg-lutein 300 mcg tablet 1 tab PO DAILY 08/09/18 furosemide 20 mg tablet 20 mg PO DAILY 12/01/18 lisinopril 40 mg tablet 20 mg PO DAILY 02/06/19 metoprolol succinate 50 mg tablet,extended release 24 hr 50 mg PO DAILY 02/06/19 famotidine 20 mg tablet 20 mg PO HS 02/21/19 Isosorbide Mononitrate [Imdur] 30 mg PO DAILY 05/12/19 calcium carbonate 600 mg calcium (1,500 mg) tablet 600 mg PO BID tab 06/13/19 nitroglycerin 0.4 mg sublingual tablet 0.4 mg SL Q5M PRN #30 tab 08/16/19 DULoxetine HCL [Cymbalta] 30 mg PO HS 12/06/19 Meclizine HCl [Wal-Dram 2] 20 mg PO BID PRN 12/06/19 methocarbamol 500 mg tablet 500 mg PO TID PRN #30 tab 12/11/19 Acyclovir [Zovirax] 400 mg PO BID 01/04/20 Dexamethasone [Decadron] 4 mg PO PRN 01/04/20 Omeprazole 40 mg PO DAILY 01/04/20 Rivaroxaban [Xarelto] 20 mg PO DAILY 01/04/20
[2020-01-13 13:37] VITALS: BP 125/56
== END 2020-01-13 13:35 | disposition home health service (06) ==
LOC: MS 14:28 → ER 14:28 → MS 18:24
PROVIDERS: ADMIT Family Medicine; ATTEND Family Medicine
DX: Z91.81 History of falling; C90.00 Multiple myeloma not having achieved remission; I48.91 Unspecified atrial fibrillation; W01.0XXA Fall on same level from slipping, tripping and stumbling without subsequent striking against object, initial encounter; N18.3 Chronic kidney disease, stage 3 (moderate); I25.10 Atherosclerotic heart disease of native coronary artery without angina pectoris; D61.818 Other pancytopenia; S00.03XA Contusion of scalp, initial encounter; I95.1 Orthostatic hypotension; R26.81 Unsteadiness on feet
CPT/HCPCS: 36415; 70450; 72125; 80053; 84484; 85025; 93005; 99284; 99285; G0378